=== PATIENT | female | born 1970 | race Caucasian/White ===

== ENCOUNTER 2016-12-29 02:04 | Emergency (ER) | payer OTHER ==
[~2016-12-29] VITALS: Ht 163.8 cm; Wt 99.8 kg
[~2016-12-29 02:04] MED LIST: ACET-704 PO; ALPR0.5T PO; ASPI-482 PO; CARV6.25 PO; CLOP75TA27 PO; CRESTOR40 MG PO; ESTR1TAB17 PO; FURO-69 PO; HYDR-2163 PO; LISI-338 PO; MULT-245 PO; OMEG1CAP43 PO; POTA20TA84 PO; PRAM0.255 PO; PRAM0.5T5 PO; SERT25TA PO; prestiq PO
--- NOTE | 2016-12-29 02:09 | ED.ADGEN ---
Past History Past Medical History: Anxiety, CAD, High Cholesterol, Hypertension, [place], Other Past Surgical History: Hysterectomy, Pacemaker, Other Smoking: Non-smoker Alcohol Use: Occasionally Drug Use: None Adult General Chief Complaint Chief Complaint " I got my flu shot.. but I feel like I got it.... fever, chills, dry cough.. malaise, joint pain.. I can't get the fever to break.. I just feel terrible... 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 Patient does have significant medical history for cardiac disorders and elevated cholesterol. Patient is on multiple cardiac meds. Patient is exposed ill patients in the emergency department. No recent travel or changes in her maintenance meds. No history of immunosuppression. Review of Systems Review of Systems Constitutional: History of fever or chills [] Eyes: Denies change in visual acuity, redness, or eye pain [] HENT: History of congestion and sore throat [] Respiratory: History of cough and some wheezes. Cardiovascular: No additional information not addressed in HPI [] GI: Denies abdominal pain, nausea, vomiting, bloody stools or diarrhea [] : Denies dysuria or hematuria [] Musculoskeletal: Complaints of generalized arthralgia myalgia Integument: Denies rash or skin lesions [] Neurologic: Denies headache, focal weakness or sensory changes [] Endocrine: Denies polyuria or polydipsia [] Family History Family History Non contributory to current presentation Current Medications Current Medications Current Medications Medications (Trade) Dose Ordered Sig/Navin Start Time Stop Time Status Last Admin Dose Admin Albuterol Sulfate (Ventolin Hfa) 2 puff 1X ONCE 12/29/16 04:15 12/29/16 04:21 DC 12/29/16 04:00 2 PUFF Albuterol/ Ipratropium (Duoneb) 3 ml 1X ONCE 12/29/16 03:00 12/29/16 03:01 DC 12/29/16 03:11 3 ML Lactated Ringer's (Iv Lactated Ringers) 1,000 ml @ 1,000 mls/hr Q1H 12/29/16 02:30 12/29/16 04:11 DC 12/29/16 02:58 1,000 MLS/HR Tramadol HCl (Ultram) 100 mg 1X ONCE 12/29/16 03:30 12/29/16 03:31 DC 12/29/16 02:57 100 MG See Nursing for home meds. Allergies Allergies Allergies Coded Allergies Type Severity Reaction Last Updated Verified Sulfa (Sulfonamide Antibiotics) Allergy Intermediate 01/16/14 Yes Physical Exam Physical Exam Constitutional: moderate distress, non-toxic appearance. [] HENT: Normocephalic, atraumatic, bilateral external ears normal, oropharynx moist,post nasal drainage, pharyngeal erythema, no oral exudates, nose rhinorrhea. Eyes: PERRLA, EOMI, conjunctiva normal, no discharge. [] Neck: Normal range of motion, no tenderness, supple, no stridor. [] No adenopathy. Cardiovascular:Heart rate regular rhythm, no murmur [] Lungs & Thorax: Bilateral breath sounds equal with only few scattered wheezes on auscultation []Pacer scar Lt. Abdomen: Bowel sounds normal, soft, no tenderness, no masses, no pulsatile masses. [] -Old surgery scar. Skin: Warm, diaphoretic, no erythema, no rash. [] Tattoo Back: No tenderness, no CVA tenderness. [] Extremities: No tenderness, no cyanosis, no clubbing, ROM intact, no edema. [] Neurologic: Alert and oriented X 3, normal motor function, normal sensory function, no focal deficits noted. [] Psychologic: Affect normal, judgement normal, mood normal. [] Current Patient Data Vital Signs Vital Signs Date Time Temp Pulse Resp B/P Pulse Ox O2 Delivery O2 Flow Rate FiO2 12/29/16 03:45 98.6 78 113/72 93 Nasal Cannula 2 Lab Results Laboratory Tests Test 12/29/16 02:11 12/29/16 02:27 Influenza Type A (Rapid) Negative (NEGATIVE) Influenza Type B (Rapid) Negative (NEGATIVE) Group A Streptococcus Rapid Negative (NEGATIVE) White Blood Count 5.8x10^3/uL (4.0-11.0) Red Blood Count 4.44x10^6/uL (3.50-5.40) Hemoglobin 13.2g/dL (12.0-15.5) Hematocrit 39.2% (36.0-47.0) Mean Corpuscular Volume 88fL (79-100) Mean Corpuscular Hemoglobin 30pg (25-35) Mean Corpuscular Hemoglobin Concent 34g/dL (31-37) Red Cell Distribution Width 14.0% (11.5-14.5) Platelet Count 203x10^3/uL (140-400) Neutrophils (%) (Auto) 70% (31-73) Lymphocytes (%) (Auto) 15% (24-48) L Monocytes (%) (Auto) 13% (0-9) H Eosinophils (%) (Auto) 1% (0-3) Basophils (%) (Auto) 1% (0-3) Neutrophils # (Auto) 4.1x10^3uL (1.8-7.7) Lymphocytes # (Auto) 0.9x10^3/uL (1.0-4.8) L Monocytes # (Auto) 0.8x10^3/uL (0.0-1.1) Eosinophils # (Auto) 0.1x10^3/uL (0.0-0.7) Basophils # (Auto) 0.0x10^3/uL (0.0-0.2) Prothrombin Time 10.2SEC (9.4-11.4) Prothrombin Time INR 1.0 (0.9-1.1) PTT 24SEC (23-33) Sodium Level 142mmol/L (136-145) Potassium Level 4.0mmol/L (3.5-5.1) Chloride Level 105mmol/L (98-107) Carbon Dioxide Level 26mmol/L (21-32) Anion Gap 11 (6-14) Blood Urea Nitrogen 14mg/dL (7-20) Creatinine 1.1mg/dL (0.6-1.0) H Estimated GFR (Cockcroft-Gault) 53.5 Glucose Level 116mg/dL (70-99) H Calcium Level 8.7mg/dL (8.5-10.1) Total Bilirubin 0.3mg/dL (0.2-1.0) Direct Bilirubin 0.1mg/dL (0.0-0.2) Aspartate Amino Transferase (AST) 29U/L (15-37) Alanine Aminotransferase (ALT) 46U/L (14-59) Alkaline Phosphatase 69U/L (46-116) Creatine Kinase 67U/L (26-192) Creatine Kinase MB (Mass) < 0.5ng/mL (0.0-3.6) Creatine Kinase MB Relative Index 0.7% (0-4) Troponin I Quantitative < 0.017ng/mL (0-0.055) IB-Qii-M-Type Natriuretic Peptide 220pg/mL (0-124) H Total Protein 7.4g/dL (6.4-8.2) Albumin 3.8g/dL (3.4-5.0) EKG EKG My interpretation of EKG shows sinus 86, Lt. axis, fascicular block, no findings of acute STEMI with contralateral change.s[] Radiology/Procedures Radiology/Procedures My interpretation, pacer, no acute interval changes. [] Course & Med Decision Making Course & Med Decision Making Pertinent Labs and Imaging studies reviewed. (See chart for details). Keep follow up with primary and cardiology. Review all labs and xrays completed here. Push fruit juices. Bath and show s may help with fevers. Continue the ibuprofen and tylenol. Use MDI two puffs four times a day. Follow up cultures. Tramadol 100 up qid for marked pain and discomfort. Zofran 8 qid for nausea as needed. Return if any concerns. [] Final Impression Final Impression 1. Viral syndrome[] 2. Elevated Creat. 1.1 3. Elevated Monocytes and decreased Lymphocytes Problems: Dragon Disclaimer Dragon Disclaimer This electronic medical record was generated, in whole or in part, using a voice recognition dictation system. AKBAR DUPREE MD Dec 29, 2016 02:09
[2016-12-29] MEDS ORDERED: IV RINGERS SOLUTION,LACTATED 1,000 ML IV SCH (02:30)
--- NOTE | 2016-12-29 02:46 | EKG ---
[address] [address] Test Date: 2016-12-29 Test Time: 02:45:08 Pat Name: AMADO MAYERS Department: Room: Gender: F Technician Assistant: MARISA : 1970 Requested By: AKBAR DUPREE Order Number: [id number] Reading MD: Measurements Intervals [place] Rate: 86 P: 47 [place]: 146 QRS: -30 QRSD: 88 T: 72 QT: 354 QTc: 427 Interpretive Statements SINUS RHYTHM ABNORMAL LEFT AXIS DEVIATION LEFT ANTERIOR FASCICULAR BLOCK QRS(T) CONTOUR ABNORMALITY CONSISTENT WITH ANTEROSEPTAL INFARCT AGE UNDETERMINED T ABNORMALITY IN HIGH LATERAL LEADS ABNORMAL ECG RI6.01 Unconfirmed report Compared to ECG 11/25/2015 15:54:12 Left-axis deviation now present T-wave abnormality now present Myocardial infarct finding still present
[2016-12-29 02:49] LABS: BASO % 1 % (0-3); EOS # 0.1 x10^3/uL (0.0-0.7); EOS % 1 % (0-3); HEMATOCRIT 39.2 % (36.0-47.0); HEMOGLOBIN 13.2 g/dL (12.0-15.5); LYMPH # 0.9 x10^3/uL (1.0-4.8); LYMPH % 15 % (24-48); MEAN CORPUSCULAR HEMOGLOBIN 30 pg (25-35); MEAN CORPUSCULAR HGB CONC 34 g/dL (31-37); MEAN CORPUSCULAR VOLUME 88 fL (79-100); MONO # 0.8 x10^3/uL (0.0-1.1); MONO % 13 % (0-9); NEUT # 4.1 x10^3uL (1.8-7.7); NEUT % 70 % (31-73); PLATELET COUNT 203 x10^3/uL (140-400); RED BLOOD COUNT 4.44 x10^6/uL (3.50-5.40); WHITE BLOOD COUNT 5.8 x10^3/uL (4.0-11.0)
[2016-12-29] MEDS ORDERED: IPRATRPIUM/ALBUTEROL 0.5/2.5MG 3 ML NEBU. NEB ONE (03:00)
[2016-12-29 03:06] LABS: INFLUENZA A PATIENT NEGATIVE (NEGATIVE); INFLUENZA B PATIENT NEGATIVE (NEGATIVE)
[2016-12-29 03:08] LABS: ALBUMIN 3.8 g/dL (3.4-5.0); ALK PHOS 69 U/L (46-116); ALT (SGPT) 46 U/L (14-59); ANION GAP 11 (6-14); AST (SGOT) 29 U/L (15-37); BLOOD UREA NITROGEN 14 mg/dL (7-20); CALCIUM 8.7 mg/dL (8.5-10.1); CARBON DIOXIDE 26 mmol/L (21-32); CHLORIDE 105 mmol/L (98-107); CREATINE KINASE 67 U/L (26-192); CREATININE 1.1 mg/dL (0.6-1.0); DIRECT BILIRUBIN 0.1 mg/dL (0.0-0.2); GFR 53.5; GLUCOSE 116 mg/dL (70-99); SODIUM 142 mmol/L (136-145); TOTAL BILIRUBIN 0.3 mg/dL (0.2-1.0); TOTAL PROTEIN 7.4 g/dL (6.4-8.2)
[2016-12-29] MEDS ORDERED: TRAMADOL 50 MG TABLET. PO ONE (03:30)
[2016-12-29] MEDS ORDERED: TRAM50TA PO (03:32)
[2016-12-29] MEDS ORDERED: ONDA8TAB12 PO (03:32)
[2016-12-29 03:45] VITALS: BP 113/72
[2016-12-29] MEDS ORDERED: ALBUTEROL SULFATE 8GM INHALER. ONE (03:52)
[2016-12-29] MEDS ORDERED: ALBUTEROL SULFATE 8GM INHALER. INH ONE (04:15)
--- NOTE | 2016-12-29 07:10 | RAD ---
Chest, 2 views, 12/29/2016: History: Cough and fever Comparison is made to a study from 11/25/2015. A left-sided transvenous pacemaker remains in place with 2 leads extending into the right heart. The heart size and pulmonary vascularity are normal. No pulmonary infiltrate is seen. There is no evidence of pleural fluid. IMPRESSION: No acute cardiopulmonary abnormality is detected.
== END 2016-12-29 04:00 | disposition home or self-care (01) ==
LOC: ER 02:09
DX: B34.9 Viral infection, unspecified (principal); D72.810 Lymphocytopenia; D72.821 Monocytosis (symptomatic); E78.00 Pure hypercholesterolemia, unspecified; I10 Essential (primary) hypertension; I25.10 Atherosclerotic heart disease of native coronary artery without angina pectoris; I25.2 Old myocardial infarction; R79.89 Other specified abnormal findings of blood chemistry; Z95.0 Presence of cardiac pacemaker; Z88.2 Allergy status to sulfonamides
CPT/HCPCS: 36415; 71020; 80048; 80061; 80076; 82553; 83880; 84484; 85027; 85610; 85730; 87040; 87070; 87804; 87880; 93005; 94640; 96360; 99285; J7120; J7620

== ENCOUNTER → 2017-01-12 | Outpatient (CLI) | payer BC, OTHER ==
[2016-12-29 03:45] VITALS: BP 113/72
[~2017-01-12] MED LIST changes: +ONDA8TAB12 PO; +TRAM50TA PO
--- NOTE | 2017-01-12 10:18 | CARD ---
APPROVED REPORT EXAM: Two-dimensional and M-mode echocardiogram with Doppler and color Doppler. Other Information Quality : Good INDICATION Ischemic Cardiomyopathy 2D DIMENSIONS RVDd2.3 (2.9-3.5cm)Left Atrium(2D)4.4 (1.6-4.0cm) IVSd0.8 (0.7-1.1cm)Aortic Root(2D)2.9 (2.0-3.7cm) LVDd5.8 (3.9-5.9cm)PWd1.3 (0.7-1.1cm) LVDs4.0 (2.5-4.0cm)FS (%) 20.0 % SV95.8 mlLVEF(%)40.0 (>50%) Aortic Valve AoV Peak Blas.115.8cm/sAoV VTI18.4cm AO Peak GR.5.4mmHgAO Mean GR.3mmHg YVES (VTI)3.37cm2 Mitral Valve MV E Fnbmrift92.9cm/sMV DECEL OFYQ021oq MV A Xvmlzlgo02.9cm/sE/A Ratio0.8 Tricuspid Valve TR P. [id number]/sRAP [id number] TR Peak Gr.12erEyJWRS51utEp LEFT VENTRICLE The left ventricle is normal size. There is normal left ventricular wall thickness. Left ventricle sy stolic function is moderately impaired. The Ejection Fraction is 30%. There is severe hypokinesis to akinesis of the mid to distal septum, apex and anterior wall consistent with prior LAD territory infa rct. Transmitral Doppler flow pattern is Grade I-abnormal relaxation pattern. RIGHT VENTRICLE The right ventricle is normal size. The right ventricular systolic function is normal. There is a pac emaker lead in the right ventricle. ATRIA The left atrium is mildly dilated. The right atrium size is normal. A pacemaker/ICD is seen in the [facility] atrium consistent with history. The interatrial septum is intact with no evidence for an atrial s eptal defect or patent foramen ovale as noted on 2-D or Doppler imaging. AORTIC VALVE The aortic valve is normal in structure and function. Doppler and Color Flow revealed no significant aortic regurgitation. There is no significant aortic valvular stenosis. MITRAL VALVE The mitral valve is normal in structure and function. There is no evidence of mitral valve prolapse. There is no mitral valve stenosis. Doppler and Color-flow revealed trace mitral regurgitation. TRICUSPID VALVE The tricuspid valve is normal in structure and function. Doppler and Color Flow revealed trace tricus pid regurgitation. The PA pressure was estimated at 35 mmHg. There is no tricuspid valve stenosis. PULMONIC VALVE Doppler and Color Flow revealed no pulmonic valvular regurgitation. There is no pulmonic valvular mahin nosis. GREAT VESSELS The aortic root is normal in size. The ascending aorta is normal in size. The IVC is normal in size a nd collapses >50% with inspiration. PERICARDIAL EFFUSION There is no evidence of significant pericardial effusion. Critical Notification Critical Value: No <Conclusion> There is severe hypokinesis to akinesis of the mid to distal septum, apex and anterior wall consisten t with prior LAD territory infarct. Left ventricle systolic function is moderately impaired. The Ejection Fraction is 30%. There is a pacemaker lead in the right ventricle. The right atrium size is normal. A pacemaker/ICD is seen in the right atrium consistent with history. Doppler and Color Flow revealed trace tricuspid regurgitation. The PA pressure was estimated at 35 mm Hg.
== END | disposition home or self-care (01) ==
LOC: ECHO 07:56
PROVIDERS: ATTEND Internal Medicine Cardiovascular Disease
DX: I25.5 Ischemic cardiomyopathy (principal); I25.2 Old myocardial infarction; I31.3 Pericardial effusion (noninflammatory); Z95.0 Presence of cardiac pacemaker
CPT/HCPCS: 93306

== ENCOUNTER → 2017-07-02 | Outpatient (CLI) | payer OTHER ==
[~2017-07-02] MED LIST changes: -CLOP75TA27 PO; +CLOP75TA57 PO
[2017-07-02 10:32] LABS: BASO % 1 % (0-3); EOS # 0.3 x10^3/uL (0.0-0.7); EOS % 4 % (0-3); HEMATOCRIT 38.7 % (36.0-47.0); HEMOGLOBIN 13.3 g/dL (12.0-15.5); LYMPH # 1.8 x10^3/uL (1.0-4.8); LYMPH % 24 % (24-48); MEAN CORPUSCULAR HEMOGLOBIN 31 pg (25-35); MEAN CORPUSCULAR HGB CONC 34 g/dL (31-37); MEAN CORPUSCULAR VOLUME 90 fL (79-100); MONO # 0.6 x10^3/uL (0.0-1.1); MONO % 8 % (0-9); NEUT # 4.8 x10^3uL (1.8-7.7); NEUT % 64 % (31-73); PLATELET COUNT 223 x10^3/uL (140-400); RED CELL DISTRIBUTION WIDTH 13.6 % (11.5-14.5); WHITE BLOOD COUNT 7.6 x10^3/uL (4.0-11.0)
[2017-07-02 10:51] LABS: ALBUMIN 3.9 g/dL (3.4-5.0); ALBUMIN/GLOBULIN RATIO 1.1 (1.0-1.7); CREATININE 0.9 mg/dL (0.6-1.0); GFR 67.1; POTASSIUM 4.5 mmol/L (3.5-5.1); TOTAL BILIRUBIN 0.3 mg/dL (0.2-1.0); TOTAL PROTEIN 7.4 g/dL (6.4-8.2)
== END | disposition home or self-care (01) ==
LOC: LAB 09:44
PROVIDERS: ATTEND Internal Medicine Cardiovascular Disease
DX: I25.5 Ischemic cardiomyopathy (principal)
CPT/HCPCS: 36415; 80053; 83880; 85025

== ENCOUNTER 2017-09-08 23:08 | Emergency (ER) | payer OTHER ==
[2017-09-08] MEDS ORDERED: hydrOXYzine HCL 25 MG TABLET PO PRN (23:15)
[2017-09-08] MEDS ORDERED: methylPREDNISolone SOD SUCC PF 125 MG/2 ML VIAL. IV ONE (23:15)
[2017-09-08] MEDS ORDERED: FAMOTIDINE 20 MG/2 ML VIAL IVP ONE (23:15)
--- NOTE | 2017-09-08 23:33 | PHYS DOC ---
Past History Past Medical History: Anxiety, CAD, High Cholesterol, Hypertension, [place], Other Past Surgical History: Hysterectomy, Pacemaker, Other Smoking: Non-smoker Alcohol Use: Occasionally Drug Use: None Adult General Chief Complaint Chief Complaint: SKIN PROBLEM HPI HPI She is a pleasant 47-year-old female who presents with a rash that has been noted on her chest wall for the last 2 months. She recently developed this rash which was described as a "" contact dermatitis by her primary care physician after she had a AICD placed in her left chest wall. She comes in tonight because she had an increasing area of irritation and itching and urticarial and development on her neck lateral face on the left. She denies any fevers, chills , neck pain, joint pain, myalgias. She further denies any insect bites or change in medications. She says that the intense itching has gotten progressively worse. There is a burning sensation over her chest wall she has scratched her rash. Review of Systems Review of Systems Constitutional: Denies fever or chills [] Eyes: Denies redness, or eye pain [] HENT: Denies nasal congestion or sore throat [] Respiratory: Denies cough or shortness of breath [] Cardiovascular: No additional information not addressed in HPI [] GI: Denies abdominal pain : Denies hematuria [] Musculoskeletal: Denies back pain or joint pain [] Integument: complaint is a skin rash on her chest wall Neurologic: Denies headache, All other systems were reviewed and found to be within normal limits, except as documented in this note. Allergies Allergies Allergies Coded Allergies Type Severity Reaction Last Updated Verified Sulfa (Sulfonamide Antibiotics) Allergy Intermediate 01/16/14 Yes Physical Exam Physical Exam Vital signs recorded on the chart patient noted to be borderline hypertensive. Constitutional: Well developed, well nourished, no acute distress, non-toxic appearance. [] HENT: oropharynx moist, no oral exudates or oral lesions, nose normal. [] Eyes: PERRLA, conjunctiva normal, no discharge. [] Neck: Normal range of motion, no tenderness, supple, Cardiovascular:Heart rate regular rhythm, no murmur [] Lungs & Thorax: Bilateral breath sounds clear to auscultation [] Skin: Warm, dry, she has a rash in her chest wall that I would describe as contact dermatitis in nature with some excoriations and broken skin on the surface. There are no vesicles. Petechiae, no purpura. This looks like him urticarial-like rash spreading on the outside of her left cheek left side of her neck. Does not look cellulitic in nature it is not warm to touch. EKG EKG [] Radiology/Procedures Radiology/Procedures [] Course & Med Decision Making Course & Med Decision Making Pertinent Labs and Imaging studies reviewed. (See chart for details) ration given 2 doses of Atarax, IM epinephrine, IV Solu-Medrol, and Pepcid with marked improvement in the redness of the skin having significant itching although the induration and the swelling has reduced significantly. I'm concerned that the patient is a delayed reaction to the medical in her chest wall from the AICD placement 2 months ago. Patient will be provided is still here to help with itching placed on a topical steroid, oral steroid and appropriate supportive a H1 and H2 blockers as well as referral to a multi craft maintenance technician. [] Dragon Disclaimer Dragon Disclaimer This electronic medical record was generated, in whole or in part, using a voice recognition dictation system. Departure Departure: Impression: Primary Impression: Pruritus Disposition: HOME, SELF-CARE Condition: STABLE Referrals: JEWELS ORTEGA MD (PCP) Patient Instructions: Pruritus Additional Instructions: discharge: I've spoken with the patient and/or caregivers. I've explained the patient's condition, diagnosis and treatment plan based on information available to me at this time. I've answered the patient's and/or caregivers questions and addressed any concerns. The patient and/or caregivers have a good understanding the patient's diagnosis, condition and treatment plan as can be expected at this point. Vital signs have been stabilized. The patient's condition is stable for discharge from the emergency department. The patient will pursue further outpatient evaluation with her primary care provider or other designated consulting physician as outlined in the discharge instructions. Patient and/or caregivers are agreeable to this plan of care and follow-up instructions have been explained in detail. The patient and/or caregivers have received these instructions in written format and expressed understanding of these discharge instructions. The patient and her caregivers are aware that if any significant change in condition or worsening of symptoms should prompt him to immediately return to this of the closest emergency department. If an emergent department is not readily available I would encourage him to call 911. Scripts Prednisone (PREDNISONE) 20 Mg Tablet 3 TAB PO DAILY for 5 Days, #15 TAB Prov: BROOKLYNN REGALADO MD 09/09/17 Famotidine (PEPCID) 20 Mg Tablet 1 TAB PO BID, #20 TAB 3 Refills Prov: BROOKLYNN REGALADO MD 09/09/17 Fluticasone Propionate (CUTIVATE) 30 Gm Cream..g. 1 KRISHAN TP BID, #60 GM 1 Refill Prov: BROOKLYNN REGALADO MD 09/09/17 Hydroxyzine Pamoate (VISTARIL) 50 Mg Capsule 1 CAP PO TID, #30 CAP 0 Refills Prov: BROOKLYNN REGALADO MD 09/09/17 BROOKLYNN REGALADO MD Sep 08, 2017 23:33
[2017-09-09] MEDS ORDERED: hydrOXYzine HCL 25 MG TABLET PO PRN
[2017-09-09] MEDS ORDERED: EPINEPHrine 1 MG/ML AMPUL ONE (00:02)
[2017-09-09] MEDS ORDERED: EPINEPHrine SYRINGE 1 MG/10 ML SYRINGE ONE ×2 (00:04→00:06)
[2017-09-09] MEDS ORDERED: EPINEPHrine 1 MG/ML AMPUL IM ONE (00:15)
[2017-09-09] MEDS ORDERED: BUTORPHANOL 2 MG VIAL. IV ONE (00:45)
[2017-09-09] MEDS ORDERED: HYDR50CA PO (00:54)
[2017-09-09] MEDS ORDERED: FLUT30CR5 TP (00:54)
[2017-09-09] MEDS ORDERED: PRED20TA PO (00:54)
[2017-09-09] MEDS ORDERED: FAMO-63 PO (00:54)
[2017-09-09] MEDS ORDERED: FLUOCINONIDE/EMOLLIENT 0.05% TOPICAL CREAM 15GM TUBE TP ONE (01:00)
[2017-09-09 01:05] VITALS: BP 110/74
== END 2017-09-09 01:31 | disposition home or self-care (01) ==
LOC: ER 23:08
DX: L29.9 Pruritus, unspecified (principal); R21 Rash and other nonspecific skin eruption; E78.00 Pure hypercholesterolemia, unspecified; F41.9 Anxiety disorder, unspecified; I25.10 Atherosclerotic heart disease of native coronary artery without angina pectoris; I10 Essential (primary) hypertension; I25.2 Old myocardial infarction; Z95.0 Presence of cardiac pacemaker; Z88.2 Allergy status to sulfonamides
CPT/HCPCS: 96372; 96374; 96375; 99284; J0171; J0595; J2930; S0028

== ENCOUNTER → 2017-10-06 | Outpatient (CLI) | payer OTHER ==
[2017-09-09 01:05] VITALS: BP 110/74
[~2017-10-06] MED LIST changes: +FAMO-63 PO; +FLUT30CR5 TP; +HYDR50CA PO; +PRED20TA PO
--- NOTE | 2017-10-07 09:22 | RAD ---
DATE: 10/06/2017 EXAM: MAMMO YARI SCREENING BILATERAL HISTORY: Routine screening COMPARISON: 02/25/2016, 10/09/2016 This study was interpreted with the benefit of Computerized Aided Detection (CAD). The breast parenchyma is heterogeneously dense, which could reduce sensitivity of mammography. Breast parenchyma level C. FINDINGS: 2-D and 3-D tomosynthesis imaging was performed in CC and MLO projections. There is a cluster of smooth nodules in the inferomedial aspect of the left breast, best seen on the tomographic images. These are unchanged suggesting a benign etiology. There is a smooth oval-shaped nodule in the posterolateral aspect of the left breast which is stable when compared to previous exams dating back to 2010. No new or enlarging breast densities are seen. Minimal benign type calcification is present. No suspicious microcalcifications have developed. IMPRESSION: Stable mammograms without evidence of malignancy. BI-RADS CATEGORY: 2 BENIGN FINDING(S) RECOMMENDED FOLLOW-UP: 12M 12 MONTH FOLLOW-UP PQRS compliance statement: Patient information was entered into a reminder system with a target due date for the next mammogram. Mammography is a sensitive method for finding small breast cancers, but it does not detect them all and is not a substitute for careful clinical examination. A negative mammogram does not negate a clinically suspicious finding and should not result in delay in biopsying a clinically suspicious abnormality. "Our facility is accredited by the [employer] Mammography Program."
== END | disposition home or self-care (01) ==
LOC: MAMMO 12:25
PROVIDERS: ATTEND Family Medicine
DX: Z12.31 Encounter for screening mammogram for malignant neoplasm of breast (principal)
CPT/HCPCS: 77063; G0202; 77067

== ENCOUNTER → 2017-11-18 | Outpatient (CLI) | payer OTHER ==
[2017-11-18 08:47] LABS: ALBUMIN 3.7 g/dL (3.4-5.0); ALBUMIN/GLOBULIN RATIO 1.1 (1.0-1.7); CALCIUM 9.1 mg/dL (8.5-10.1); GFR 59.4; POTASSIUM 4.2 mmol/L (3.5-5.1); TOTAL BILIRUBIN 0.2 mg/dL (0.2-1.0); TOTAL PROTEIN 7.1 g/dL (6.4-8.2)
== END | disposition home or self-care (01) ==
LOC: LAB 07:49
PROVIDERS: ATTEND Physician Assistant
DX: E78.2 Mixed hyperlipidemia (principal)
CPT/HCPCS: 36415; 80053; 80061

== ENCOUNTER 2018-02-09 12:08 | Emergency (ER) | payer OTHER ==
[~2018-02-09] VITALS: Ht 162.6 cm; Wt 90.7 kg
--- NOTE | 2018-02-09 12:35 | EKG ---
[address] [address] Test Date: 2018-02-09 Test Time: 12:12:16 Pat Name: AMADO MAYERS Department: Room: Gender: F Lapidarist: : 1970 Requested By: MANN MAHONEY Order Number: [id number] Reading MD: Measurements Intervals [place] Rate: 77 P: 0 [place]: 222 QRS: -25 QRSD: 92 T: 77 QT: 412 QTc: 468 Interpretive Statements SINUS RHYTHM PROLONGED [place] INTERVAL LEFTWARD AXIS QRS(T) CONTOUR ABNORMALITY CONSISTENT WITH ANTEROSEPTAL INFARCT AGE UNDETERMINED T ABNORMALITY IN HIGH LATERAL LEADS ABNORMAL ECG RI6.01 No previous ECG available for comparison
[2018-02-09 12:40] LABS: BASO # 0.1 x10^3/uL (0.0-0.2); BASO % 1 % (0-3); EOS # 0.1 x10^3/uL (0.0-0.7); EOS % 2 % (0-3); HEMATOCRIT 36.8 % (36.0-47.0); HEMOGLOBIN 12.4 g/dL (12.0-15.5); LYMPH # 2.7 x10^3/uL (1.0-4.8); LYMPH % 33 % (24-48); MEAN CORPUSCULAR HEMOGLOBIN 30 pg (25-35); MEAN CORPUSCULAR HGB CONC 34 g/dL (31-37); MEAN CORPUSCULAR VOLUME 89 fL (79-100); MONO # 0.7 x10^3/uL (0.0-1.1); MONO % 8 % (0-9); NEUT # 4.7 x10^3uL (1.8-7.7); NEUT % 57 % (31-73); PLATELET COUNT 207 x10^3/uL (140-400); RED BLOOD COUNT 4.12 x10^6/uL (3.50-5.40); RED CELL DISTRIBUTION WIDTH 13.7 % (11.5-14.5); WHITE BLOOD COUNT 8.2 x10^3/uL (4.0-11.0)
--- NOTE | 2018-02-09 12:50 | RAD ---
Exam: AP portable chest History: Dizziness, hypotensive. Comparison: December 29, 2016. Findings: The heart and mediastinal structures are within normal limits for size. Lungs are without infiltrate. No pleural effusion or pneumothorax is identified. Dual-lead pacemaker by left subclavian approach is seen. No failure is evident. Impression: 1. No acute cardiopulmonary process. Electronically signed by: Eliazar Betancourt MD (02/09/2018 12:46 PM) [facility]
[2018-02-09 12:57] LABS: ALBUMIN 3.8 g/dL (3.4-5.0); ALBUMIN/GLOBULIN RATIO 1.2 (1.0-1.7); CALCIUM 8.5 mg/dL (8.5-10.1); CREATININE 0.8 mg/dL (0.6-1.0); GFR 76.9; MAGNESIUM 1.8 mg/dL (1.8-2.4); POTASSIUM 3.9 mmol/L (3.5-5.1); TOTAL BILIRUBIN 0.4 mg/dL (0.2-1.0)
--- NOTE | 2018-02-09 13:08 | PHYS DOC ---
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 Patient complaining of feeling of near-syncope without chest pain, palpitation, shortness of breath, focal neuro deficit, nausea and vomiting. Patient had blood pressure of 88/51 and states her dizziness is getting better but still she feeling lightheadedness. Patient denies history of the same upper respiratory infection or head injury and the same problem previously Review of Systems Review of Systems Constitutional: Denies fever or chills [] Eyes: Denies change in visual acuity, redness, or eye pain [] HENT: Denies nasal congestion or sore throat [] Respiratory: Denies cough or shortness of breath [] Cardiovascular: No additional information not addressed in HPI [] GI: Denies abdominal pain, nausea, vomiting, bloody stools or diarrhea [] : Denies dysuria or hematuria [] Musculoskeletal: Denies back pain or joint pain [] Integument: Denies rash or skin lesions [] Neurologic: Denies headache, focal weakness or sensory changes, reports dizziness [] Endocrine: Denies polyuria or polydipsia [] All other systems were reviewed and found to be within normal limits, except as documented in this note. Allergies Allergies Allergies Coded Allergies Type Severity Reaction Last Updated Verified Sulfa (Sulfonamide Antibiotics) Allergy Intermediate 02/09/18 Yes Physical Exam Physical Exam Constitutional: Well developed, well nourished, mild distress, non-toxic appearance. [] HENT: Normocephalic, atraumatic, bilateral external ears normal, oropharynx moist, no oral exudates, nose normal. [] Eyes: PERRLA, EOMI, conjunctiva normal, no discharge. [] Neck: Normal range of motion, no tenderness, supple, no stridor. [] Cardiovascular:Heart rate regular rhythm, no murmur [] Lungs & Thorax: Bilateral breath sounds clear to auscultation [] Abdomen: Bowel sounds normal, soft, no tenderness, no masses, no pulsatile masses. [] Skin: Warm, dry, no erythema, no rash. [] Back: No tenderness, no CVA tenderness. [] Extremities: No tenderness, no cyanosis, no clubbing, ROM intact, no edema. [] Neurologic: Alert and oriented X 3, normal motor function, normal sensory function, no focal deficits noted. [] Psychologic: Affect normal, judgement normal, mood normal. [] Current Patient Data Vital Signs Vital Signs Date Time Temp Pulse Resp B/P (MAP) Pulse Ox O2 Delivery O2 Flow Rate FiO2 02/09/18 12:08 98.1 72 20 100 Room Air Lab Results Laboratory Tests Test 02/09/18 12:16 White Blood Count 8.2 x10^3/uL (4.0-11.0) Red Blood Count 4.12 x10^6/uL (3.50-5.40) Hemoglobin 12.4 g/dL (12.0-15.5) Hematocrit 36.8 % (36.0-47.0) Mean Corpuscular Volume 89 fL (79-100) Mean Corpuscular Hemoglobin 30 pg (25-35) Mean Corpuscular Hemoglobin Concent 34 g/dL (31-37) Red Cell Distribution Width 13.7 % (11.5-14.5) Platelet Count 207 x10^3/uL (140-400) Neutrophils (%) (Auto) 57 % (31-73) Lymphocytes (%) (Auto) 33 % (24-48) Monocytes (%) (Auto) 8 % (0-9) Eosinophils (%) (Auto) 2 % (0-3) Basophils (%) (Auto) 1 % (0-3) Neutrophils # (Auto) 4.7 x10^3uL (1.8-7.7) Lymphocytes # (Auto) 2.7 x10^3/uL (1.0-4.8) Monocytes # (Auto) 0.7 x10^3/uL (0.0-1.1) Eosinophils # (Auto) 0.1 x10^3/uL (0.0-0.7) Basophils # (Auto) 0.1 x10^3/uL (0.0-0.2) Sodium Level 139 mmol/L (136-145) Potassium Level 3.9 mmol/L (3.5-5.1) Chloride Level 103 mmol/L (98-107) Carbon Dioxide Level 28 mmol/L (21-32) Anion Gap 8 (6-14) Blood Urea Nitrogen 12 mg/dL (7-20) Creatinine 0.8 mg/dL (0.6-1.0) Estimated GFR (Cockcroft-Gault) 76.9 BUN/Creatinine Ratio 15 (6-20) Glucose Level 115 mg/dL (70-99) H Calcium Level 8.5 mg/dL (8.5-10.1) Magnesium Level 1.8 mg/dL (1.8-2.4) Total Bilirubin 0.4 mg/dL (0.2-1.0) Aspartate Amino Transferase (AST) 15 U/L (15-37) Alanine Aminotransferase (ALT) 40 U/L (14-59) Alkaline Phosphatase 42 U/L (46-116) L Creatine Kinase 84 U/L (26-192) Creatine Kinase MB (Mass) 1.0 ng/mL (0.0-3.6) Creatine Kinase MB Relative Index 1.2 % (0-4) Troponin I Quantitative < 0.017 ng/mL (0-0.055) MW-Atf-H-Type Natriuretic Peptide 189 pg/mL (0-124) H Total Protein 7.0 g/dL (6.4-8.2) Albumin 3.8 g/dL (3.4-5.0) Albumin/Globulin Ratio 1.2 (1.0-1.7) EKG EKG EKG interpreted by me. EKG at 1212 showed sinus rhythm at rate of 77, prolonged MD interval, left hinds axis deviation, Q waves in anterior leads, T-wave abnormality in lateral leads,[ no acute ST and T-wave abnormalities Radiology/Procedures Radiology/Procedures [address] [address] IMAGING REPORT Signed PATIENT: AMADO MAYERS ACCOUNT: [id number] : 1970 LOCATION: ER AGE: 47 SEX: F EXAM STATUS: REG ER ORD. PHYSICIAN: MANN MAHONEY MD REASON: dizziness PROCEDURE: PORTABLE CHEST 1V Exam: AP portable chest History: Dizziness, hypotensive. Comparison: December 29, 2016. Findings: The heart and mediastinal structures are within normal limits for size. Lungs are without infiltrate. No pleural effusion or pneumothorax is identified. Dual-lead pacemaker by left subclavian approach is seen. No failure is evident. Impression: 1. No acute cardiopulmonary process. Electronically signed by: Eliazar Hidalgo MD (02/09/2018 12:46 PM) [facility] DICTATED AND SIGNED BY: ELIAZAR HIDALGO MD DATE: 02/09/18 9136 CC: JEWELS ORTEGA MD; MANN MAHONEY MD ~ [] Course & Med Decision Making Course & Med Decision Making Pertinent Labs and Imaging studies reviewed. (See chart for details) Evaluation of patient in ER showed 47-year-old female patient with complaining of lightheadedness and dizziness with blood pressure of 88 at arrival to ER that gradually improved to 97. Patient had increase of blood pressure at [address] demarco informed at 12:15 and agreed with plan of care. Patient had pacemaker defibrillator integration that reported normal rhythm without any arrhythmia. 2 sets of cardiac enzymes was unremarkable. Patient tolerated oral intake and had 500 mL normal saline IV with improvement of her dizziness. Patient ambulated without problem and felt comfortable to go home.Dr demarco informed again at 1514 and was concerned that patient problem is most likely related to recent increasing dose of Entresto and suggested to decrease to 1 pill twice a day instead of 2 pills in the morning and 1 in evening. 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 Dragon Disclaimer Dragon Disclaimer This electronic medical record was generated, in whole or in part, using a voice recognition dictation system. Departure Departure: Impression: Primary Impression: Near syncope Disposition: HOME, SELF-CARE (At 1519) Condition: IMPROVED Referrals: JEWELS ORTEGA MD (PCP) Patient Instructions: Dizziness Additional Instructions: Follow-up feet Dr. Demarco as instructed Follow-up with your primary care physician in 3-5 days Return to ER if not getting better MANN MAHONEY MD February 09, 2018 13:08
[2018-02-09] MEDS ORDERED: IV NORMAL SALINE 500ML 500 ML IV ONE (14:45)
[2018-02-09 16:05] VITALS: BP 110/68
== END 2018-02-09 16:10 | disposition home or self-care (01) ==
LOC: ER 12:08
DX: R55 Syncope and collapse (principal); E78.00 Pure hypercholesterolemia, unspecified; I25.10 Atherosclerotic heart disease of native coronary artery without angina pectoris; I10 Essential (primary) hypertension; I25.2 Old myocardial infarction; F41.9 Anxiety disorder, unspecified; Z95.0 Presence of cardiac pacemaker; Z88.2 Allergy status to sulfonamides
CPT/HCPCS: 36415; 71045; 80053; 82553; 83735; 83880; 84484; 85025; 93005; 96360; 99285; J7040

== ENCOUNTER → 2018-03-15 | Outpatient (CLI) | payer OTHER ==
--- NOTE | 2018-03-15 14:11 | CARD ---
MR#: [id number] Date of Study: 03/15/2018 Ordering Physician: TJ FISCHER, Referring Physician: TJ FISCHER, Tech: JOSEPH Dennison APPROVED REPORT EXAM: Two-dimensional and M-mode echocardiogram with Doppler and color Doppler. Other Information Quality : AverageHR: 71bpm Technically limited study due to INDICATION Ischemic Cardiomyopathy 2D DIMENSIONS RVDd3.1 (2.9-3.5cm)Left Atrium(2D)4.0 (1.6-4.0cm) IVSd1.3 (0.7-1.1cm)Aortic Root(2D)2.8 (2.0-3.7cm) LVDd5.0 (3.9-5.9cm)LVOT Diameter2.2 (1.8-2.4cm) PWd1.2 (0.7-1.1cm)LVDs3.3 (2.5-4.0cm) FS (%) 33.7 %SV72.1 ml LVEF(%)62.2 (>50%) Aortic Valve AoV Peak Blas.137.1cm/sAoV VTI30.2cm AO Peak GR.7.5mmHgLVOT Peak Blas.87.0cm/s LVOT VTI 20.52cmAO Mean GR.5mmHg YVES (VMAX)2.56gd5RGI (VTI)2.70cm2 Mitral Valve MV E Vtcpajkp31.9cm/sMV DECEL [id number] MV A Pdtheixz25.4cm/sE/A Ratio1.1 Pulmonary Valve PV Peak Fmsekwea161.4cm/sPV Peak Grad.5mmHg Tricuspid Valve TR P. Gioacnwn282ox/sTR Peak Gr.21mmHg Pulmonary Vein S1 Tmbscxkz51.2cm/sD2 Tlehoxjj44.4cm/s LEFT VENTRICLE The left ventricle is normal size. There is mild concentric left ventricular hypertrophy. The systoli c function is moderately impaired. The Ejection Fraction is 35-40%. Significant regional wall motion abnormalities noted. The septum, distal anterior wall and apex are akinetic. Tissue Doppler imaging r eveals mild left ventricular diastolic dysfunction. RIGHT VENTRICLE The right ventricle is normal size. The right ventricle is mildly hypertrophied. The right ventricula r systolic function is normal. There is a pacemaker lead in the right ventricle. ATRIA The left atrium size is normal. The right atrium size is normal. A pacemaker is seen in the right atr ium consistent with history. The interatrial septum is intact with no evidence for an atrial septal d efect or patent foramen ovale as noted on 2-D or Doppler imaging. AORTIC VALVE The aortic valve is thickened and not well visualized. Doppler and Color Flow revealed no significant aortic regurgitation. There is no significant aortic valvular stenosis. There is no aortic valvular vegetation. MITRAL VALVE The mitral valve is thickened but opens well. There is no evidence of mitral valve prolapse. There is no mitral valve stenosis. Doppler and Color Flow revealed no mitral valve regurgitation noted. TRICUSPID VALVE The tricuspid valve is normal in structure. Doppler and Color Flow revealed trace to mild tricuspid r egurgitation. There is no tricuspid valve prolapse or vegetation. There is no tricuspid valve stenosi s. PULMONIC VALVE The pulmonic valve is not well visualized. Doppler and Color Flow revealed no pulmonic valvular regur gitation. There is no pulmonic valvular stenosis. GREAT VESSELS The aortic root is normal in size. The IVC is normal in size and collapses >50% with inspiration. PERICARDIAL EFFUSION There is no pleural effusion. There is no evidence of significant pericardial effusion. Critical Notification Critical Value: No <Conclusion> The systolic function is moderately impaired. The Ejection Fraction is 35-40%. Significant regional wall motion abnormalities noted. The septum, distal anterior wall and apex are a kinetic. There is a pacemaker lead in the right ventricle. Signed by : Tj Fischer, Electronically Approved : 03/15/2018 14:10:05
== END | disposition home or self-care (01) ==
LOC: ECHO 12:33
PROVIDERS: ATTEND Internal Medicine Cardiovascular Disease
DX: I25.5 Ischemic cardiomyopathy (principal); Z95.0 Presence of cardiac pacemaker
CPT/HCPCS: 93306

== ENCOUNTER 2018-08-22 01:38 | Inpatient (IN) | payer OTHER ==
[~2018-08-22] VITALS: Ht 162.6 cm; Wt 97.1 kg
[2018-08-22] MEDS ORDERED: ASPIRIN 81 MG TAB.CHEW ONE (02:01)
--- NOTE | 2018-08-22 02:08 | PHYS DOC ---
Past History Past Medical History: Angina, High Cholesterol, Heart Disease Past Surgical History: Hysterectomy, Other Smoking: Non-smoker Alcohol Use: None Drug Use: None Adult General Chief Complaint Chief Complaint: CHEST PAIN HPI HPI Patient is a 48-year-old female who presents with complaint of chest pain that started at about 12:15 this morning. Patient states that pain woke her from sleep. She states the pain is quite atypical for her typical chest pains. She states the pain as partially dull and at times sharp. She states that the pain is about a 5 out of 10. She indicates that nothing seems to worsen or improve the pain. Patient does have a strong cardiac history and also has a familial type of hypercholesterolemia. She denies any nausea, vomiting or diaphoresis. Pain is located to the left side of the chest and is nonradiating. Pain has been constant since onset but she states that at times pain worsens. Review of Systems Review of Systems Constitutional: Denies fever or chills [] Respiratory: Denies cough or shortness of breath [] Cardiovascular: Complains of left-sided chest pain [] GI: Denies abdominal pain, nausea, vomiting [] Musculoskeletal: Denies back pain or joint pain [] All other systems were reviewed and found to be within normal limits, except as documented in this note. Current Medications Current Medications Current Medications Medications (Trade) Dose Ordered Sig/Navin Start Time Stop Time Status Last Admin Dose Admin Aspirin (Children'S Aspirin) 81 mg STK-MED ONCE 08/22/18 02:01 08/22/18 02:02 DC Allergies Allergies Allergies Coded Allergies Type Severity Reaction Last Updated Verified Sulfa (Sulfonamide Antibiotics) Allergy Intermediate 02/09/18 Yes Physical Exam Physical Exam Constitutional: Well developed, well nourished, no acute distress, non-toxic appearance. [] HENT: Normocephalic, atraumatic, bilateral external ears normal, oropharynx moist, no oral exudates, nose normal. [] Eyes: PERRLA, EOMI, conjunctiva normal, no discharge. [] Neck: Normal range of motion, no tenderness, supple, no stridor. [] Cardiovascular:Heart rate regular rhythm [] Lungs & Thorax: Bilateral breath sounds clear to auscultation [] Abdomen: Bowel sounds normal, soft. [] Skin: Warm, dry, no erythema, no rash. [] Extremities: No tenderness, no cyanosis, no clubbing, ROM intact, no edema. [] Neurologic: Alert and oriented X 3, normal motor function, normal sensory function, no focal deficits noted. [] Current Patient Data Vital Signs Vital Signs Date Time Temp Pulse Resp B/P (MAP) Pulse Ox O2 Delivery O2 Flow Rate FiO2 08/22/18 01:51 77 20 99 Room Air EKG EKG EKG demonstrates an atrial paced rhythm with rate of 76.[] Radiology/Procedures Radiology/Procedures [] Impressions: Chest x-ray demonstrates no acute process. Course & Med Decision Making Course & Med Decision Making Pertinent Labs and Imaging studies reviewed. (See chart for details) [] Dragon Disclaimer Dragon Disclaimer This electronic medical record was generated, in whole or in part, using a voice recognition dictation system. Departure Departure: Impression: Primary Impression: Chest pain at rest Disposition: ADMITTED INPATIENT Admitting Physician: Other (Alverto) Condition: GOOD Referrals: RICHARDSON SALVADOR MD (PCP) KARAN WISE Jr., DO Aug 22, 2018 02:08
[2018-08-22] MEDS ORDERED: ASPIRIN 81 MG TAB.CHEW PO ONE ×2 (02:15)
[2018-08-22] MEDS ORDERED: NITROGLYCERIN SUBLINGUAL 0.4 MG BOTTLE OF 25. SL PRN (02:15)
[2018-08-22 02:23] LABS: BASO # 0.1 x10^3/uL (0.0-0.2); BASO % 1 % (0-3); EOS # 0.2 x10^3/uL (0.0-0.7); EOS % 2 % (0-3); HEMOGLOBIN 12.4 g/dL (12.0-15.5); LYMPH % 37 % (24-48); MEAN CORPUSCULAR HEMOGLOBIN 30 pg (25-35); MEAN CORPUSCULAR HGB CONC 34 g/dL (31-37); MEAN CORPUSCULAR VOLUME 90 fL (79-100); MONO # 0.7 x10^3/uL (0.0-1.1); MONO % 9 % (0-9); NEUT # 4.1 x10^3uL (1.8-7.7); NEUT % 51 % (31-73); PLATELET COUNT 223 x10^3/uL (140-400); RED BLOOD COUNT 4.12 x10^6/uL (3.50-5.40); RED CELL DISTRIBUTION WIDTH 14.2 % (11.5-14.5)
[2018-08-22 02:38] LABS: ALBUMIN 3.7 g/dL (3.4-5.0); ALBUMIN/GLOBULIN RATIO 1.1 (1.0-1.7); CALCIUM 8.4 mg/dL (8.5-10.1); CREATININE 0.9 mg/dL (0.6-1.0); GFR 66.8; MAGNESIUM 1.8 mg/dL (1.8-2.4); POTASSIUM 3.1 mmol/L (3.5-5.1); TOTAL BILIRUBIN 0.2 mg/dL (0.2-1.0)
[2018-08-22] MEDS ORDERED: ONDANSETRON PF 4 MG/2 ML VIAL. IV PRN (02:45)
--- NOTE | 2018-08-22 02:58 | EKG ---
[address] [address] Test Date: 2018-08-22 Test Time: 01:57:47 Pat Name: AMADO LAM Department: Room: Gender: F [employer]: : 1970 Requested By: KARAN WISE Order Number: [id number] Reading MD: Brice Rojo MD Measurements Intervals Douglas Rate: 76 P: 30 IL: 210 QRS: -31 QRSD: 94 T: 56 QT: 408 QTc: 464 Interpretive Statements SINUS RHYTHM ABNORMAL LEFT AXIS DEVIATION QRS(T) CONTOUR ABNORMALITY CONSISTENT WITH ANTERIOR INFARCT Electronically Signed On 08-22-2018 13:36:30 CAGER OPERATOR by Brice Rojo MD
[2018-08-22] MEDS ORDERED: POTASSIUM CHLORIDE 20 MEQ TABLET.ER. PO ONE (03:00)
[2018-08-22] MEDS ORDERED: ONDANSETRON PF 4 MG/2 ML VIAL. IV ONE (03:00)
[2018-08-22 03:36] VITALS: BP 112/73
[2018-08-22] MEDS ORDERED: EZET10TA26 PO (04:14)
[2018-08-22] MEDS ORDERED: VENL75CA6 PO (04:14)
[2018-08-22] MEDS ORDERED: SACU1TAB7 PO (04:14)
[2018-08-22] MEDS ORDERED: PRAS10TA10 PO (04:14)
[2018-08-22] MEDS ORDERED: ROSU40TA21 PO (04:14)
[2018-08-22] MEDS ORDERED: METF10007 PO (04:14)
--- NOTE | 2018-08-22 04:34 | NUR ---
The patient, AMADO LAM, 48 y/o, F admitted by CALEB FRANCISCO DO, was given written information regarding hospital policies, unit procedures and contact persons. Patient arrived via EMS from the ER, got report from nurse Costello. Patient stated that the chest pain started about 12:15 in the morning. is at bedside. Went over plan of care with patient. Valuables were checked and left at bedside.
[2018-08-22 05:27] VITALS: BP 103/69
--- NOTE | 2018-08-22 05:27 | NUR ---
Consult called to Dr. Ibrahim he stated that he would see patient today and to call if we have any other concerns.
[2018-08-22] MEDS ORDERED: CARV25TA2 PO (07:44)
[2018-08-22] MEDS ORDERED: KETOROLAC 30 MG/ML VIAL. IV ONE (08:00)
[2018-08-22] MEDS ORDERED: CARVEDILOL 12.5 MG TABLET PO SCH (08:00)
[2018-08-22] MEDS ORDERED: metFORMIN 500 MG TABLET PO SCH (08:00)
[2018-08-22] MEDS ORDERED: ASPIRIN ENTERIC COATED 81 MG TABLET.DR. PO SCH (08:00)
[2018-08-22 08:05] LABS: ALBUMIN 3.4 g/dL (3.4-5.0); ALBUMIN/GLOBULIN RATIO 1.1 (1.0-1.7); CALCIUM 8.3 mg/dL (8.5-10.1); CREATININE 0.8 mg/dL (0.6-1.0); GFR 76.6; POTASSIUM 4.1 mmol/L (3.5-5.1); TOTAL BILIRUBIN 0.3 mg/dL (0.2-1.0); TOTAL PROTEIN 6.4 g/dL (6.4-8.2)
[2018-08-22] MEDS: PRAMIPEXOLE 0.5 MG TABLET. PO SCH ×2 (08:39→14:26)
[2018-08-22] MEDS ORDERED: OMEGA-3 FATTY ACIDS/FISH OIL 1,000 MG CAPSULE. PO SCH (09:00)
[2018-08-22] MEDS ORDERED: VENLAFAXINE XR 37.5 MG CAP.ER.24H. PO SCH (09:00)
[2018-08-22] MEDS ORDERED: PRASUGREL HCL 10 MG PO SCH (09:00)
[2018-08-22] MEDS ORDERED: EZETIMIBE 10 MG TABLET PO SCH (09:00)
[2018-08-22] MEDS ORDERED: FUROSEMIDE 20 MG TABLET PO SCH (09:00)
[2018-08-22] MEDS ORDERED: MULTIVITAMIN with MINERAL TABLET. PO SCH (09:00)
[2018-08-22] MEDS ORDERED: SACUBITRIL/VALSARTAN 49/51MG TABLET. PO SCH (09:00)
--- NOTE | 2018-08-22 09:03 | HP ---
ADMIT DATE: 08/22/2018 HISTORY OF PRESENT ILLNESS: The patient is a 48-year-old female patient, who basically presented to the Emergency Room with the complaint of left-sided chest pain started about 12:15. This morning, the pain woke her up from sleep. The pain is quite atypical of her typical chest pain. She stated the pain is partially dull and at times sharp and rates about 5 out 10, indicates that nothing seems to worsen or improve the pain. The patient denied any nausea or vomiting. Denied any diaphoresis, denied any shortness of breath, orthopnea or paroxysmal nocturnal dyspnea. The pain is mostly in the left side of the chest around her pacemaker, constant since onset and when she was given fentanyl, the pain was relieved and she managed to sleep a little bit, but when I saw her again, she still complained of the same pain around the same area, at the same intensity of about 5/10. She was evaluated in the Emergency Room and has had her first set of cardiac enzyme was less than 0.017 and apart from hypokalemia, all her other lab works are within acceptable range. PAST MEDICAL HISTORY: Her past medical history is significant for hypertension, hyperlipidemia, coronary artery disease, status post myocardial infarction x 2. She is status post PCI with stent deployment x 3. Her most recent echocardiogram available was done about in 2016, at that time showed that her ejection fraction is 40-45%. PAST SURGICAL HISTORY: Her past surgical history is significant for left heart catheterization, PCI with stent deployment x 3. She has also total abdominal hysterectomy. Allergies: She is ALLERGIC TO SULFA DRUGS. MEDICATIONS: She is currently on following medications: She is on prasugrel 10 mg tablet daily, Zetia 10 mg once a day, Crestor 40 mg at bedtime, omega-3 fatty acids 1 tablet daily, carvedilol 25 mg twice a day, and Entresto 49/51 mg tablet once a day. She is on aspirin 81 mg once a day, venlafaxine extended release 75 mg once a day, Mirapex 0.5 mg 3 times a day, potassium chloride 20 mEq at bedtime. She is on furosemide 20 mg daily, metformin 1000 mg p.o. b.i.d., and multivitamin 1 tablet once a day. FAMILY HISTORY: She has one brother and one sister, all younger. Her sister has hyperlipidemia. Her mother is alive at age of 71 and has hyperlipidemia. Her father is alive at the age of 75 and presumably seemingly healthy. SOCIAL HISTORY: She is , has no children. She never smoked. Drinks wine occasionally. Does not use any drugs. 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 REVIEW OF SYSTEMS: The patient denied any blurring of vision, cataract, glaucoma or macular degeneration. Denied any earache, tinnitus or sensorineural deafness. Denied any nosebleeds, stuffy nose or postnasal drip. Denied any sore throat, sore tongue, toothache, hoarseness of voice or difficulty swallowing. She did intentionally loss about 26 pounds. Denied any nausea, vomiting, diarrhea or constipation. Denied any hematemesis, melena or hematochezia. Denied any dysuria, frequency or hematuria. She did come to the office with chest pain, but denied any orthopnea or paroxysmal nocturnal dyspnea, cough, phlegm or hemoptysis. Denied any chills, rigors or fever. PHYSICAL EXAMINATION: GENERAL: On arrival to the Emergency Room, she looked well and was clearly in no apparent respiratory distress, pale; no jaundice, cyanosis, or thyromegaly. No jugular venous distension. No lower limb edema. VITAL SIGNS: Her heart rate was 75, blood pressure was 124/72, temperature was 97.4, respiratory rate was 18, and oxygen saturation was 100% on room air. HEENT: Examination of the head, eyes, ears, nose and throat showed normocephalic, atraumatic. NECK: Supple. HEART: Showed normal first and second heart sounds with no gallop, rub or murmur. CHEST: Clear to auscultation. No crepitation or rhonchi. ABDOMEN: Distended, soft, nontender. NEUROLOGIC: She was awake, alert, responding appropriately. Her cranial nerves are intact. EXTREMITIES: She moves extremities without difficulty. She ambulates without assistance or assistive devices. LABORATORY DATA AND IMAGING STUDIES: Her lab work showed a white cell count of 8000, hemoglobin 12, hematocrit 37, MCV 90, and platelet count of 223,000 with normal manual differential. Her prothrombin time was 9.7, INR 1, aPTT was 25. Her serum sodium was 133, potassium 3.1, chloride 99, bicarbonate 29, anion gap of 5, BUN 12, creatinine 0.9, estimated GFR was 66 mL per minute. Her glucose 115, calcium was 8.4, magnesium was 1.8. Total bilirubin, AST, ALT, alkaline phosphatase were normal. Her first troponin was less than 0.017. Her beta-natriuretic peptide was 367, total protein was 7, albumin 3.7. Her EKG demonstrated an atrial paced rhythm with a rate of 76. Her chest x-ray showed no acute cardiopulmonary abnormality. ASSESSMENT AND PLAN: The patient was admitted to do 2 more sets of cardiac enzyme. We will check her fasting lipid profile, consult the cardiology team. As she continued to have pain, which mostly in the left infraclavicular fossa around her pacemaker, we will try Toradol and see if that will alleviate the pain as it seems to be more musculoskeletal in nature. AARON HAYWARD MD DR: DALIA/eliu JOB#: [id number] / [id number]
--- NOTE | 2018-08-22 09:14 | RAD ---
PORTABLE CHEST 1V History: Chest pain, history of heart attack, pacemaker Comparison: February 09, 2018 Findings: Single view of the chest is submitted. There is again left electronic cardiac device. Pericardial cardiac silhouette is unchanged, somewhat enlarged. There is no significant pleural fluid, lobar infiltrate, pneumothorax. Impression: 1. There is no radiographic evidence of acute cardiopulmonary disease. Electronically signed by: Michi Christensen MD (08/22/2018 9:11 AM) [id number]
[2018-08-22 10:36] VITALS: BP 97/64
--- NOTE | 2018-08-22 11:24 | NUR ---
Patient continues to have left sided chest pain, does not become SOA or worse with movement. States it is sharp and stabbing pain located near her pacemaker area. Pt given x1 dose of toradol, states pain is 5/10. Pain relief remains at 5/10 after toradol was given. Nurse administered fentanyl x1 with relief, pain decreased to 2/10. Angela LACER AND TIER here at this time to see patient and cardiology aware of patients status. Pt remains Atrail paced.
--- NOTE | 2018-08-22 11:34 | PDOC2 ---
JES NYE RIVETER PNEUMATIC 08/22/18 1134: CONSULT Date of Admission DATE: 08/22/18 TIME: 11:13 Reason for Consult: chest pain Problem List Problems Medical Problems: (1) Chest pain at rest Status: Acute History of Present Illness Ms Barbosa is a 48 year old female with history of MA, PCI/stents, chronic systolic heart failure, AICD placement with last echo revealing EF 35-40%. She presents with complaints of sharp, left sided chest pain that woke her from sleep. She describes non exertional pain without exacerbating factors. No associated symptoms. No fever, chills, cough. No tenderness on palpation, no increase with exertion, position change or deep inspiration. She reports this is different from her typical anginal pain. She did have some relief with fentanyl but not with toradol. Vitaliy remain normal. no acute abn on EKG. She was noted recently on [employer] to have a decrease in her thoracic impedance and when contacted reported some increased fatigue but no overt heart failure type symptoms. She did increase her lasix for several days and reports that her symptoms improved. Past Medical History hypertension, hyperlipidemia, GERD, viral meningitis, coronary artery disease, status post myocardial infarction x 2 with PCI and stents x3. chronic systolic heart failure, EF most recently 35-40% in March of this year. AICD placement with [facility]. Past Surgical History left heart catheterization, PCI with stent deployment x 3, total abdominal hysterectomy. 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 Current Medications Current Medications Aspirin (Children'S Aspirin) 81 mg STK-MED ONCE .ROUTE ; Start 08/22/18 at 02: 01; Stop 08/22/18 at 02:02; Status DC Aspirin (Children'S Aspirin) 324 mg 1X ONCE PO Last administered on at 02:06; Start 08/22/18 at 02:15; Stop 08/22/18 at 02:28; Status DC Nitroglycerin (Nitrostat) 0.4 mg PRN Q5MIN PRN SL CP RATING > 1/10; Start 09/27 at 02:15; Stop 08/23/18 at 02:14 Aspirin (Children'S Aspirin) 324 mg 1X ONCE PO ; Start 08/22/18 at 02:15; Stop 08/22/18 at 02:29; Status DC Potassium Chloride (Klor-Con) 40 meq 1X ONCE PO Last administered on 03:00; Start 08/22/18 at 03:00; Stop 08/22/18 at 03:01; Status DC Fentanyl Citrate (Fentanyl 2ml Vial) 25 mcg 1X ONCE IV Last administered on 03:00; Start 08/22/18 at 03:00; Stop 08/22/18 at 03:01; Status DC Ondansetron HCl (Zofran) 4 mg 1X ONCE IV Last administered on 08/22/18 03:00 ; Start 08/22/18 at 03:00; Stop 08/22/18 at 03:01; Status DC Ondansetron HCl (Zofran) 4 mg PRN Q4HRS PRN IV NAUSEA/VOMITING 1ST CHOICE; Start 08/22/18 at 02:45; Stop 08/23/18 at 02:44 Fentanyl Citrate (Fentanyl 2ml Vial) 25 mcg PRN Q2HR PRN IV SEVERE PAIN Last administered on 08/22/18 09:21; Start 08/22/18 at 02:45; Stop 08/23/18 at 02 :44 Furosemide (Lasix) 20 mg DAILY PO Last administered on 08/22/18 08:38; Start 08/22/18 at 09:00 Aspirin (Aspirin Enteric Coated) 81 mg DAILYWBKFT PO Last administered on 08/22 08:40; Start 08/22/18 at 08:00 Carvedilol (Coreg) 25 mg BIDWMEALS PO Last administered on 08/22/18 08:40; Start 08/22/18 at 08:00 EZETIMIBE (Zetia) 10 mg DAILY PO Last administered on 08/22/18 08:38; Start 08/22/18 at 09:00 Metformin HCl (Glucophage) 1,000 mg BIDWMEALS PO Last administered on 08:40; Start 08/22/18 at 08:00 Multivitamins/ Calcium (Thera-M Plus) 1 tab DAILY PO Last administered on 08/22 08:39; Start 08/22/18 at 09:00 Fish Oil (Fish Oil) 1,000 mg DAILY PO Last administered on 08/22/18 08:38; Start 08/22/18 at 09:00 Potassium Chloride (Klor-Con) 20 meq QHS PO ; Start 08/22/18 at 21:00 Pramipexole Dihydrochloride (miraPEX) 0.5 mg [id number] PO Last administered on 09/27at 08:39; Start 08/22/18 at 09:00 Non-Formulary Medication (Prasugrel HCl ) 10 mg DAILY PO ; Start 08/22/18 at 09 :00; Status UNV Atorvastatin Calcium (Lipitor) 80 mg QHS PO ; Start 08/22/18 at 21:00 Sacubitril/ Valsartan (Entresto 49 Mg-51 Mg) 1 tab BID PO Last administered on 08/22/18at 08:39; Start 08/22/18 at 09:00 Venlafaxine HCl (Effexor Xr) 75 mg DAILY PO Last administered on 08/22/18at 08: 39; Start 08/22/18 at 09:00 Ketorolac Tromethamine (Toradol 30mg Vial) 30 mg 1X ONCE IV Last administered on 08/22/18at 08:41; Start 08/22/18 at 08:00; Stop 08/22/18 at 08:04; Status DC Active Scripts Active Reported Carvedilol 25 Mg Tablet 1 Tab PO BID Ezetimibe 10 Mg Tablet 1 Tab PO DAILY Venlafaxine Hcl Er (Venlafaxine Hcl) 75 Mg Cap.er.24h 1 Cap PO DAILY Entresto 49 mg-51 mg Tablet (Sacubitril/Valsartan) 1 Each Tablet 1 Tab PO DAILY Metformin Hcl 1,000 Mg Tablet 1,000 Mg PO BID Prasugrel HCl 10 Mg Tablet 10 Mg PO DAILY Multi Vitamin Daily (Multivitamin) 1 Each Tablet 1 Each PO DAILY Fish Oil 1,400 Mg Softgel ([place]-3/Dha/Epa/Fish Oil) 1 Each Capsule.dr 1 Each PO DAILY Mirapex (Pramipexole Di-Hcl) 0.5 Mg Tablet 0.5 Mg PO TID K-Tab ER (Potassium Chloride) 20 Meq Tablet.er 20 Meq PO HS Lasix (Furosemide) 20 Mg Tablet 20 Mg PO DAILY Aspir 81 (Aspirin) 81 Mg Tablet.dr 81 Mg PO DAILY Crestor (Rosuvastatin Calcium) 40 Mg Tablet 40 Mg PO QHS Allergies: Coded Allergies: Sulfa (Sulfonamide Antibiotics) (Verified Allergy, Intermediate, 02/09/18) Review of System as per HPI or negative General: Alert, Oriented X3, Cooperative, No acute distress HEENT: Atraumatic, EOMI, Mucous membr. moist/pink Lungs: Clear to auscultation, Normal air movement Heart: Normal S1, Normal S2, Other (no gallops, clicks or rubs) Abdomen: Normal bowel sounds, Soft, No tenderness Extremities: No cyanosis, No edema, Normal pulses Neuro: Normal speech, Strength at 5/5 X4 ext Psych/Mental Status: Mental status NL, Mood NL VITALS Vital Signs Date Time Temp Pulse Resp B/P (MAP) Pulse Ox O2 Delivery O2 Flow Rate FiO2 08/22/18 10:36 98.0 70 20 97/64 (75) 96 Room Air Labs Laboratory Tests Test 08/22/18 01:56 08/22/18 05:45 08/22/18 08:37 White Blood Count 8.0 x10^3/uL (4.0-11.0) Red Blood Count 4.12 x10^6/uL (3.50-5.40) Hemoglobin 12.4 g/dL (12.0-15.5) Hematocrit 37.0 % (36.0-47.0) Mean Corpuscular Volume 90 fL (79-100) Mean Corpuscular Hemoglobin 30 pg (25-35) Mean Corpuscular Hemoglobin Concent 34 g/dL (31-37) Red Cell Distribution Width 14.2 % (11.5-14.5) Platelet Count 223 x10^3/uL (140-400) Neutrophils (%) (Auto) 51 % (31-73) Lymphocytes (%) (Auto) 37 % (24-48) Monocytes (%) (Auto) 9 % (0-9) Eosinophils (%) (Auto) 2 % (0-3) Basophils (%) (Auto) 1 % (0-3) Neutrophils # (Auto) 4.1 x10^3uL (1.8-7.7) Lymphocytes # (Auto) 3.0 x10^3/uL (1.0-4.8) Monocytes # (Auto) 0.7 x10^3/uL (0.0-1.1) Eosinophils # (Auto) 0.2 x10^3/uL (0.0-0.7) Basophils # (Auto) 0.1 x10^3/uL (0.0-0.2) Prothrombin Time 9.7 SEC (9.4-11.4) Prothromb Time International Ratio 1.0 (0.9-1.1) Activated Partial Thromboplast Time 25 SEC (23-33) Sodium Level 133 mmol/L (136-145) 139 mmol/L (136-145) Potassium Level 3.1 mmol/L (3.5-5.1) 4.1 mmol/L (3.5-5.1) Chloride Level 99 mmol/L (98-107) 104 mmol/L (98-107) Carbon Dioxide Level 29 mmol/L (21-32) 25 mmol/L (21-32) Anion Gap 5 (6-14) 10 (6-14) Blood Urea Nitrogen 12 mg/dL (7-20) 13 mg/dL (7-20) Creatinine 0.9 mg/dL (0.6-1.0) 0.8 mg/dL (0.6-1.0) Estimated GFR (Cockcroft-Gault) 66.8 76.6 BUN/Creatinine Ratio 13 (6-20) 16 (6-20) Glucose Level 115 mg/dL (70-99) 104 mg/dL (70-99) Calcium Level 8.4 mg/dL (8.5-10.1) 8.3 mg/dL (8.5-10.1) Magnesium Level 1.8 mg/dL (1.8-2.4) Total Bilirubin 0.2 mg/dL (0.2-1.0) 0.3 mg/dL (0.2-1.0) Aspartate Amino Transf (AST/SGOT) 17 U/L (15-37) 15 U/L (15-37) Alanine Aminotransferase (ALT/SGPT) 35 U/L (14-59) 30 U/L (14-59) Alkaline Phosphatase 49 U/L (46-116) 43 U/L (46-116) Troponin I Quantitative < 0.017 ng/mL (0-0.055) < 0.017 ng/mL (0-0.055) < 0.017 ng/mL (0-0.055) OP-Jgq-R-Type Natriuretic Peptide 367 pg/mL (0-124) Total Protein 7.0 g/dL (6.4-8.2) 6.4 g/dL (6.4-8.2) Albumin 3.7 g/dL (3.4-5.0) 3.4 g/dL (3.4-5.0) Albumin/Globulin Ratio 1.1 (1.0-1.7) 1.1 (1.0-1.7) Images CXR - Impression: 1. There is no radiographic evidence of acute cardiopulmonary disease. EKG - a paced, v sensed, old AWMI, no acute changes. Assessment/Plan 1. Chest pain, atypical - Vitaliy negative despite prolonged pain. No acute EKG changes. 2. CAD s/p prior PCI/stenting - last cath 2015. 3. chronic systolic heart failure, most recent echo EF 35-40% - compensated currently. Will have AICD interrogated for function and TI. 4. hypotension - mild and baseline for her 5. HLD - continue statin. TJ FISCHER MD 08/22/18 5913: CONSULT Assessment/Plan Patient seen and examined. Agree with above nurse practitioner note with the following comments 48-year-old woman with a very atypical/noncardiac chest pain. Initial evaluation including EKG, enzymes and d-dimer is unremarkable. Suspect this may be stress related. Supportive care. Okay to discharge from a cardiac standpoint. JES NYE APRN Aug 22, 2018 11:34 TJ FISCHER MD Aug 22, 2018 16:54
--- NOTE | 2018-08-22 14:00 | NUR ---
Dr. Espinal here at this time, states he will order a DDimer and if it is negative then patient is okay to discharge home. Patient states fentanyl has helped relieve pain to left side of chest.
[2018-08-22 15:01] VITALS: BP 107/65
--- NOTE | 2018-08-22 15:45 | NUR ---
DDimer 0.38, Dr. Espinal and Dr. Batista notified. Orders okay to discharge home. Notified patient at this time.
--- NOTE | 2018-08-22 16:00 | NUR ---
Patient ambulated off unit at this time with . IV discontinued and belongings left with patient. Patient verbalized POC and understands DC instructions. Patient to follow up with Dr. Espinal in 1 month, as well as take a few days off for rest.
[2018-08-22] MEDS ORDERED: POTASSIUM CHLORIDE 20 MEQ TABLET.ER. PO SCH (21:00)
[2018-08-22] MEDS ORDERED: ATORVASTATIN CALCIUM 20 MG TABLET PO SCH (21:00)
== END 2018-08-22 16:00 | disposition home or self-care (01) | DRG 313 ==
LOC: ER 01:38 → 1 SOUTH 02:43
PROVIDERS: ADMIT Neuromusculoskeletal Medicine & OMM; ATTEND Neuromusculoskeletal Medicine & OMM
DX: R07.89 Other chest pain (principal); I50.22 Chronic systolic (congestive) heart failure; E78.00 Pure hypercholesterolemia, unspecified; E78.5 Hyperlipidemia, unspecified; E87.6 Hypokalemia; I11.0 Hypertensive heart disease with heart failure; I25.10 Atherosclerotic heart disease of native coronary artery without angina pectoris; K21.9 Gastro-esophageal reflux disease without esophagitis; Z90.710 Acquired absence of both cervix and uterus; I25.2 Old myocardial infarction; Z79.899 Other long term (current) drug therapy; Z95.5 Presence of coronary angioplasty implant and graft; Z95.810 Presence of automatic (implantable) cardiac defibrillator
CPT/HCPCS: 36415; 71045; 80053; 80061; 83735; 83880; 84484; 85025; 85379; 85610; 85730; 93005; 96374; 96375; J1885; J2405; J3010; 99285-25

== ENCOUNTER → 2018-09-14 | Outpatient (CLI) | payer OTHER ==
[2018-08-22 15:01] VITALS: BP 107/65
[~2018-09-14] MED LIST changes: +CARV25TA2 PO; +EZET10TA26 PO; +METF10007 PO; +PRAS10TA10 PO; +ROSU40TA21 PO; +SACU1TAB7 PO; +VENL75CA6 PO
== END | disposition home or self-care (01) ==
LOC: LAB 09-13 13:36 → EDSTATUS 07:18
PROVIDERS: ATTEND Internal Medicine Cardiovascular Disease
DX: E78.5 Hyperlipidemia, unspecified (principal)
CPT/HCPCS: 80061

== ENCOUNTER → 2018-09-26 | Outpatient (CLI) | payer OTHER ==
--- NOTE | 2018-09-27 08:39 | RAD ---
DATE: 09/26/2018 2:00 AM EXAM: MAMMO YARI SCREENING BILATERAL HISTORY: routine screening evaluation. COMPARISON: Prior mammographic imaging dating back to 02/25/2016 Bilateral CC and MLO views of the breasts were performed. Bilateral breast tomosynthesis was performed in CC and MLO projections. This study was interpreted with the benefit of Computerized Aided Detection (CAD ). Breast Density: The breast parenchyma shows scattered fibroglandular densities. Breast parenchyma level B. FINDINGS: Benign calcifications are present. The parenchymal pattern appears stable. Mass in the posterior depth right breast is stable to at least 02/25/2016. No suspicious masses, microcalcifications or architectural distortion is present to suggest malignancy in either breast. The visualized axillae are unremarkable. Left axilla is partially obscured by pacemaker. IMPRESSION: No mammographic evidence of malignancy. BI-RADS CATEGORY: 2 BENIGN FINDING(S) RECOMMENDED FOLLOW-UP: 12M 12 MONTH FOLLOW-UP Annual screening mammography is recommended, unless clinically indicated sooner based on symptoms or change in physical exam. PQRS compliance statement: Patient information was entered into a reminder system with a target due date for the next mammogram. Mammography is a sensitive method for finding small breast cancers, but it does not detect them all and is not a substitute for careful clinical examination. A negative mammogram does not negate a clinically suspicious finding and should not result in delay in biopsying a clinically suspicious abnormality. "Our facility is accredited by the [employer] Mammography Program." ESTHERD
== END | disposition home or self-care (01) ==
LOC: MAMMO 14:40
PROVIDERS: ATTEND Family Medicine
DX: Z12.31 Encounter for screening mammogram for malignant neoplasm of breast (principal)
CPT/HCPCS: 77063; 77067

== ENCOUNTER → 2018-10-19 | Outpatient (CLI) | payer OTHER ==
--- NOTE | 2018-10-19 15:21 | RAD ---
EXAM: Chest, 2 views. HISTORY: Defibrillator placement. COMPARISON: 08/22/2018 FINDINGS: 2 views of chest are obtained. There is a dual lead left cardiac pacemaker defibrillator. The leads are in expected position. There is no infiltrate, pleural effusion or pneumothorax. The heart is normal in size. IMPRESSION: Dual lead left cardiac pacemaker defibrillator overlying expected position. Electronically signed by: Jennifer Armenta MD (10/19/2018 3:17 PM) [facility]
== END | disposition home or self-care (01) ==
LOC: RAD 14:09
PROVIDERS: ATTEND Internal Medicine Cardiovascular Disease
DX: I25.5 Ischemic cardiomyopathy (principal); Z95.0 Presence of cardiac pacemaker
CPT/HCPCS: 71046

== ENCOUNTER 2018-11-25 17:03 | Emergency (ER) | payer OTHER ==
[~2018-11-25] VITALS: Ht 162.6 cm; Wt 96.0 kg
[~2018-11-25 17:03] MED LIST changes: -EZET10TA26 PO; +EZET10TA49 PO; -ROSU40TA21 PO; +ROSU40TA22 PO
[2018-11-25 17:11] VITALS: BP 127/85
[2018-11-25] MEDS ORDERED: IV NORMAL SALINE 1,000ML 1,000 ML IV ONE (17:30)
--- NOTE | 2018-11-25 17:46 | PHYS DOC ---
Past History Past Medical History: Bronchitis, CAD, High Cholesterol, Hypertension, [place], UTI (JAME KING DO) Past Surgical History: Hysterectomy, Tonsillectomy (JAME KING DO) Smoking: Non-smoker Alcohol Use: Occasionally Drug Use: None (JAME KING DO) Adult General Chief Complaint Chief Complaint: FEVER HPI HPI 48-year-old female presents with 3 day history of cough, low-grade fever, and generalized fatigue. Patient was told to see her PCP today, but the office was closed due to ankle whether. She has been feeling dehydrated and felt like she should come in for more thorough evaluation. Eyes nausea, vomiting, diarrhea, chest pain. 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 Denies current fever. (JAME KING DO) Review of Systems Review of Systems Constitutional: Fever and chills [] Eyes: Denies change in visual acuity, redness, or eye pain [] HENT: nasal congestion without sore throat. Decreased voice. [] Respiratory: Cough without shortness of breath [] Cardiovascular: No additional information not addressed in HPI [] GI: Denies abdominal pain, nausea, vomiting, bloody stools or diarrhea [] : Denies dysuria or hematuria [] Musculoskeletal: Denies back pain or joint pain [] Integument: Denies rash or skin lesions [] Neurologic: Mild headache. Denies focal weakness or sensory changes [] Endocrine: Denies polyuria or polydipsia [] All other systems were reviewed and found to be within normal limits, except as documented in this note. (JAME KING DO) Current Medications Current Medications Current Medications Medications (Trade) Dose Ordered Sig/Navin Start Time Stop Time Status Last Admin Dose Admin Sodium Chloride 1,000 ml @ 1,000 mls/hr 1X ONCE 11/25/18 17:30 11/25/18 18:29 (JAME KING DO) Allergies Allergies Allergies Coded Allergies Type Severity Reaction Last Updated Verified Sulfa (Sulfonamide Antibiotics) Allergy Intermediate 02/09/18 Yes (JAME KING DO) Physical Exam Physical Exam Constitutional: Well developed, well nourished, no acute distress, non-toxic appearance. [] HENT: Normocephalic, atraumatic, bilateral external ears normal, oropharynx dry , no oral exudates, nose normal. [] Eyes: PERRLA, EOMI, conjunctiva normal, no discharge. [] Neck: Normal range of motion, no tenderness, supple, no stridor. [] Cardiovascular:Heart rate regular rhythm, no murmur [] Lungs & Thorax: Bilateral breath sounds clear to auscultation [] Abdomen: Bowel sounds normal, soft, no tenderness, no masses, no pulsatile masses. [] Skin: Warm, dry, no erythema, no rash. [] Back: No tenderness, no CVA tenderness. [] Extremities: No tenderness, no cyanosis, no clubbing, ROM intact, no edema. [] Neurologic: Alert and oriented X 3, normal motor function, normal sensory function, no focal deficits noted. [] Psychologic: Affect normal, judgement normal, mood normal. [] (JAME KING DO) Current Patient Data Vital Signs Vital Signs Date Time Temp Pulse Resp B/P (MAP) Pulse Ox O2 Delivery O2 Flow Rate FiO2 11/25/18 17:11 97.7 78 22 100 Room Air 20.0 (JAME KING DO) EKG EKG [] (JAME KING DO) Radiology/Procedures Radiology/Procedures [] (JAME KING DO) Course & Med Decision Making Course & Med Decision Making Pertinent Labs and Imaging studies reviewed. (See chart for details) Patient's labs are pending. I have given her 1 L normal saline. I'm signing the patient out to Dr. Mcghee for final disposition at 1835. [] (JAME KING DO) Course & Med Decision Making Diagnoses influenza B Patient will be discharged home on Tamiflu (JB DEAN MD) Dragon Disclaimer Dragon Disclaimer This electronic medical record was generated, in whole or in part, using a voice recognition dictation system. (JAME KING DO) Departure Departure: Impression: Primary Impression: Cough Additional Impression: Fever Referrals: RICHARDSON SALVADOR MD (PCP) Scripts Promethazine Hcl/Codeine (PROMETHAZINE-CODEINE SYRUP) 118 Ml Syrup 5 ML PO Q4-6HRS for ., #120 ML Prov: JB DEAN MD 11/25/18 Oseltamivir Phosphate (TAMIFLU) 75 Mg Capsule 1 CAP PO BID for ., #9 CAP Prov: JB DEAN MD 11/25/18 Problem Qualifiers JAME KING DO Nov 25, 2018 17:46 JB DEAN MD Nov 25, 2018 19:21
[2018-11-25 18:42] LABS: BASO % 1 % (0-3); EOS # 0.2 x10^3/uL (0.0-0.7); EOS % 3 % (0-3); HEMATOCRIT 34.7 % (36.0-47.0); HEMOGLOBIN 11.4 g/dL (12.0-15.5); LYMPH % 28 % (24-48); MEAN CORPUSCULAR HEMOGLOBIN 30 pg (25-35); MEAN CORPUSCULAR HGB CONC 33 g/dL (31-37); MEAN CORPUSCULAR VOLUME 90 fL (79-100); MONO # 0.7 x10^3/uL (0.0-1.1); MONO % 10 % (0-9); NEUT # 4.3 x10^3uL (1.8-7.7); NEUT % 59 % (31-73); PLATELET COUNT 182 x10^3/uL (140-400); RED BLOOD COUNT 3.87 x10^6/uL (3.50-5.40); RED CELL DISTRIBUTION WIDTH 15.2 % (11.5-14.5); WHITE BLOOD COUNT 7.3 x10^3/uL (4.0-11.0)
[2018-11-25 18:43] LABS: INFLUENZA A PATIENT NEGATIVE (NEGATIVE); INFLUENZA B PATIENT POSITIVE (NEGATIVE)
[2018-11-25 19:03] LABS: ALBUMIN 3.4 g/dL (3.4-5.0); CALCIUM 8.5 mg/dL (8.5-10.1); CREATININE 0.8 mg/dL (0.6-1.0); GFR 76.6; POTASSIUM 4.1 mmol/L (3.5-5.1); TOTAL BILIRUBIN 0.2 mg/dL (0.2-1.0); TOTAL PROTEIN 6.7 g/dL (6.4-8.2)
[2018-11-25] MEDS ORDERED: OSEL75CA PO (19:19)
[2018-11-25] MEDS ORDERED: PROM118S5 PO (19:19)
[2018-11-25] MEDS ORDERED: OSELTAMIVIR 75 MG CAPSULE PO ONE (19:30)
[2018-11-25] MEDS ORDERED: PROMETH/CODEINE 6.25/10MG 5 ML SYRUP. PO ONE (19:30)
--- NOTE | 2018-11-25 22:59 | RAD ---
PA and lateral chest radiographs 11/25/2018 CLINICAL HISTORY: Fever and body aches with productive cough. PA and lateral digital radiographs of the chest were obtained. Comparison study is dated 10/19/2018. A pacemaker is unchanged position. The cardiac silhouette is borderline enlarged. The thoracic aorta is mildly tortuous. No acute pulmonary infiltrate is seen. No pleural effusion or pneumothorax is noted. The osseous structures are grossly intact. IMPRESSION: No acute abnormality is seen. Electronically signed by: Isrrael Ingram MD (11/25/2018 10:56 PM) [facility]
== END 2018-11-25 20:13 | disposition home or self-care (01) ==
LOC: ER 17:03
DX: R05 Cough (principal); R50.9 Fever, unspecified; E86.0 Dehydration; R51 Headache; I25.10 Atherosclerotic heart disease of native coronary artery without angina pectoris; E78.00 Pure hypercholesterolemia, unspecified; I10 Essential (primary) hypertension; I25.2 Old myocardial infarction; Z87.440 Personal history of urinary (tract) infections; Z88.2 Allergy status to sulfonamides
CPT/HCPCS: 36415; 71046; 80053; 85025; 87804; 96360; 96361; 99284-25; J7030

== ENCOUNTER → 2018-12-28 | Outpatient (CLI) | payer OTHER ==
[~2018-12-28] MED LIST changes: +OSEL75CA PO; +PROM118S5 PO; +ROSU40TA21 PO; -ROSU40TA22 PO
[2018-12-28 10:13] LABS: BASO # 0.1 x10^3/uL (0.0-0.2); BASO % 1 % (0-3); EOS # 0.1 x10^3/uL (0.0-0.7); EOS % 2 % (0-3); HEMATOCRIT 39.6 % (36.0-47.0); HEMOGLOBIN 13.2 g/dL (12.0-15.5); LYMPH # 1.7 x10^3/uL (1.0-4.8); LYMPH % 23 % (24-48); MEAN CORPUSCULAR HEMOGLOBIN 29 pg (25-35); MEAN CORPUSCULAR HGB CONC 33 g/dL (31-37); MEAN CORPUSCULAR VOLUME 88 fL (79-100); MONO # 0.5 x10^3/uL (0.0-1.1); MONO % 7 % (0-9); NEUT % 68 % (31-73); PLATELET COUNT 207 x10^3/uL (140-400); RED BLOOD COUNT 4.52 x10^6/uL (3.50-5.40); RED CELL DISTRIBUTION WIDTH 14.8 % (11.5-14.5); WHITE BLOOD COUNT 7.5 x10^3/uL (4.0-11.0)
[2018-12-28 10:16] LABS: CALCIUM 8.9 mg/dL (8.5-10.1); CREATININE 0.9 mg/dL (0.6-1.0); GFR 66.8
[2018-12-28 14:16] LABS: FREE T4 0.82 ng/dL (0.76-1.46); THYROID STIM HORMONE (TSH) 2.563 uIU/mL (0.358-3.740)
[2018-12-28 19:09] LABS: FSH 17.4 mIU/mL (.); LUTEINIZING HORMONE 33.3 mIU/mL (.); PROGESTERONE 0.5 ng/mL (.)
== END | disposition home or self-care (01) ==
LOC: LAB 08:59
PROVIDERS: ATTEND Physician Assistant Medical
DX: E34.9 Endocrine disorder, unspecified (principal)
CPT/HCPCS: 36415; 80048; 82672; 83001; 83002; 84144; 84439; 84443; 84481; 85025

== ENCOUNTER → 2019-03-31 | Outpatient (CLI) | payer OTHER ==
[~2019-03-31] MED LIST changes: -ROSU40TA21 PO; +ROSU40TA22 PO
--- NOTE | 2019-03-31 16:28 | RAD ---
Right knee, 3 views, 03/31/2019: HISTORY: Fall, knee pain No fracture or dislocation is identified. The knee joint space is well maintained. No joint effusion is evident. IMPRESSION: No acute right knee abnormality is detected. Electronically signed by: Champ Baker MD (03/31/2019 4:25 PM) [facility]
== END | disposition home or self-care (01) ==
LOC: PMG 13:57
PROVIDERS: ATTEND Family Medicine
DX: M25.561 Pain in right knee (principal); M79.89 Other specified soft tissue disorders; W19.XXXA Unspecified fall, initial encounter; Y93.89 Activity, other specified; Y92.89 Other specified places as the place of occurrence of the external cause; Y99.8 Other external cause status
CPT/HCPCS: 73562

== ENCOUNTER → 2019-04-14 | Outpatient (CLI) | payer OTHER ==
[2019-04-14 09:18] LABS: ALBUMIN/GLOBULIN RATIO 1.2 (1.0-1.7); CALCIUM 9.1 mg/dL (8.5-10.1); CREATININE 0.9 mg/dL (0.6-1.0); GFR 66.8; POTASSIUM 4.2 mmol/L (3.5-5.1); TOTAL BILIRUBIN 0.3 mg/dL (0.2-1.0); TOTAL PROTEIN 7.3 g/dL (6.4-8.2)
== END | disposition home or self-care (01) ==
LOC: LAB 08:07
PROVIDERS: ATTEND Family Medicine
DX: E78.5 Hyperlipidemia, unspecified (principal)
CPT/HCPCS: 36415; 80053; 80061

== ENCOUNTER → 2019-04-14 | Outpatient (CLI) | payer OTHER | END | disposition home or self-care (01) | LOC: LAB 08:02 | PROVIDERS: ATTEND Internal Medicine Cardiovascular Disease | DX: I25.5 Ischemic cardiomyopathy (principal) | CPT/HCPCS: 80061 ==

== ENCOUNTER → 2019-04-18 | Outpatient (CLI) | payer OTHER ==
--- NOTE | 2019-04-18 13:38 | CARD ---
MR#: [id number] Date of Study: 04/18/2019 Ordering Physician: TJ FISCHER, Referring Physician: TJ FISCHER, Tech: Enid Nash [facility] APPROVED REPORT EXAM: Two-dimensional and M-mode echocardiogram with Doppler and color Doppler. Other Information Quality : Technically LimitedHR: 68bpm Rhythm : NSRTechnically limited study due to body habitus. INDICATION Cardiomyopathy 2D DIMENSIONS RVDd2.9 (2.9-3.5cm)Left Atrium(2D)3.2 (1.6-4.0cm) IVSd1.0 (0.7-1.1cm)Aortic Root(2D)2.8 (2.0-3.7cm) LVDd4.6 (3.9-5.9cm)LVOT Diameter2.0 (1.8-2.4cm) PWd0.8 (0.7-1.1cm)LVDs3.7 (2.5-4.0cm) FS (%) 18.1 %SV36.1 ml LVEF(%)37.7 (>50%) M-Mode DIMENSIONS Left Atrium(MM)3.58 (2.5-4.0cm)Aortic Root3.10 (2.2-3.7cm) Aortic Valve AoV Peak Blas.129.8cm/sAoV VTI22.5cm AO Peak GR.6.7mmHgLVOT Peak Blas.94.5cm/s LVOT VTI 18.93cmAO Mean GR.3mmHg YVES (VMAX)2.26hn5CAQ (VTI)2.52cm2 Mitral Valve MV E Hmcuwjpc00.6cm/sMV DECEL VMBW111ss MV A Vnhiijsp50.3cm/sE/A Ratio1.2 Pulmonary Valve PV Peak Plosyjzt39.5cm/sPV Peak Grad.3mmHg Tricuspid Valve TR P. Rlqrzymc150uw/sRAP URYQHZMC7stNk TR Peak Gr.67rgVpSCVM37yzJf LEFT VENTRICLE The left ventricle is normal size. There is normal left ventricular wall thickness. The left ventricu lar systolic function is moderately impaired. The Ejection Fraction is 35-40%. Transmitral Doppler fl ow pattern is Grade II-pseudonormal filling dynamics. RIGHT VENTRICLE The right ventricle is normal size. There is normal right ventricular wall thickness. The right ventr icular systolic function is normal. ICD lead noted in RV/RA. ATRIA The left atrium size is normal. The right atrium size is normal. The interatrial septum is intact wit h no evidence for an atrial septal defect or patent foramen ovale as noted on 2-D or Doppler imaging. AORTIC VALVE The aortic valve is not well visualized. The aortic valve is probably trileaflet. Doppler and Color F low revealed no significant aortic regurgitation. There is no significant aortic valvular stenosis. MITRAL VALVE The mitral valve is normal in structure and function. There is no evidence of mitral valve prolapse. There is no mitral valve stenosis. Doppler and Color-flow revealed trace mitral regurgitation. TRICUSPID VALVE The tricuspid valve is normal in structure and function. Doppler and Color Flow revealed trace tricus pid regurgitation. The PA pressure was estimated at 23 mmHg. There is no tricuspid valve prolapse or vegetation. There is no tricuspid valve stenosis. PULMONIC VALVE The pulmonic valve is not well visualized. GREAT VESSELS The aortic root is normal in size. The ascending aorta is normal in size. The IVC is normal in size a nd collapses >50% with inspiration. PERICARDIAL EFFUSION There is no evidence of significant pericardial effusion. Critical Notification Critical Value: No <Conclusion> The left ventricular systolic function is moderately impaired. The Ejection Fraction is 35-40%. Transmitral Doppler flow pattern is Grade II-pseudonormal filling dynamics. ICD lead noted in RV/RA. Trace mitral regurgitation. Trace tricuspid regurgitation. The PA pressure was estimated at 23 mmHg. There is no evidence of significant pericardial effusion. Signed by : Iban Warren, Electronically Approved : 04/18/2019 13:38:33
== END | disposition home or self-care (01) ==
LOC: ECHO 12:23
PROVIDERS: ATTEND Internal Medicine Cardiovascular Disease
DX: I25.5 Ischemic cardiomyopathy (principal); I25.10 Atherosclerotic heart disease of native coronary artery without angina pectoris
CPT/HCPCS: 93306

== ENCOUNTER 2019-07-05 17:03 | Inpatient (IN) | payer OTHER ==
[~2019-07-05] VITALS: Ht 162.6 cm; Wt 95.3 kg
[~2019-07-05 17:03] MED LIST changes: -AMOX1TAB61 PO
[2019-07-05] MEDS ORDERED: ONDANSETRON PF 4 MG/2 ML VIAL. IV PRN (17:15)
[2019-07-05] MEDS: IV NORMAL SALINE 1,000ML 1,000 ML IV SCH (17:29)
[2019-07-05] MEDS ORDERED: CARVEDILOL 12.5 MG TABLET PO SCH (18:15)
[2019-07-05 18:23] VITALS: BP 127/84
[2019-07-05] MEDS: ACETAMINOPHEN 325 MG TABLET PO PRN (18:38)
[2019-07-05] MEDS ORDERED: FLU VAX QS 2019-20 (36MOS+)/PF 0.5 ML SYRINGE. VAX IM ONE (19:00)
[2019-07-05] MEDS ORDERED: ATORVASTATIN CALCIUM 20 MG TABLET PO SCH (21:00)
[2019-07-05] MEDS ORDERED: POTASSIUM CHLORIDE 20 MEQ TABLET.ER. PO SCH (21:00)
[2019-07-05] MEDS: AMOXICILLIN/K CLAV 875/125MG TABLET. PO SCH (21:03)
[2019-07-05] MEDS: SACUBITRIL/VALSARTAN 49/51MG TABLET. PO SCH (21:04)
[2019-07-05] MEDS: PRAMIPEXOLE 0.5 MG TABLET. PO SCH (21:05)
[2019-07-05] MEDS: CARVEDILOL 12.5 MG TABLET PO SCH (21:14)
--- NOTE | 2019-07-05 21:28 | RAD ---
PQRS Compliance statement: One or more of the following individualized dose reduction techniques were utilized for this examination: 1. Automated exposure control. 2. Adjustment of the mA and/or kV according to patient size. 3. Use of iterative reconstruction technique. Indication:Abdomen and lower back pain. Diarrhea. TECHNIQUE: CT abdomen and pelvis without IV contrast with multiplanar reformats. COMPARISON: None FINDINGS: Limited evaluation of solid abdominal and pelvic organs due to lack of IV contrast. Heart is normal in size. No pericardial or pleural effusion. Clear lung bases. Too low attenuating lesions in segment 4A of the liver, the largest measuring 1.6 x 1.2 cm demonstrating fluid density most likely hepatic cysts. 3.0 x 2.6 cm low attenuating lesion in the spleen. Gallbladder is decompressed without radiopaque stones. Noncontrast appearance of the pancreas, adrenals within normal limits. No nephrolithiasis or hydronephrosis. No enlarged retroperitoneal or pelvic adenopathy. No free pelvic fluid or ascites. Status post hysterectomy. No bowel obstruction. Normal appendix. Urinary bladder demonstrates no radiopaque stones. No pneumoperitoneum. No suspicious bony lesion. IMPRESSION: Limited evaluation of solid abdominal and pelvic organs due to lack of IV contrast. 1. No nephrolithiasis or hydronephrosis. 2. No bowel obstruction. 3. Indeterminate splenic lesion likely complex cyst or hemangioma. Electronically signed by: Natalio Chung DO (07/05/2019 9:25 PM) [facility]
[2019-07-06] MEDS: ACETAMINOPHEN 325 MG TABLET PO PRN (00:50)
[2019-07-06 05:37] VITALS: BP 116/75
[2019-07-06 06:17] LABS: BASO % 0 % (0-3); EOS # 0.1 x10^3/uL (0.0-0.7); EOS % 1 % (0-3); HEMATOCRIT 35.6 % (36.0-47.0); HEMOGLOBIN 11.9 g/dL (12.0-15.5); LYMPH # 1.3 x10^3/uL (1.0-4.8); LYMPH % 20 % (24-48); MEAN CORPUSCULAR HEMOGLOBIN 30 pg (25-35); MEAN CORPUSCULAR HGB CONC 33 g/dL (31-37); MEAN CORPUSCULAR VOLUME 90 fL (79-100); MONO # 0.6 x10^3/uL (0.0-1.1); MONO % 9 % (0-9); NEUT # 4.7 x10^3uL (1.8-7.7); NEUT % 70 % (31-73); PLATELET COUNT 174 x10^3/uL (140-400); RED BLOOD COUNT 3.97 x10^6/uL (3.50-5.40); RED CELL DISTRIBUTION WIDTH 14.3 % (11.5-14.5); WHITE BLOOD COUNT 6.8 x10^3/uL (4.0-11.0)
[2019-07-06 06:33] LABS: ALBUMIN 3.3 g/dL (3.4-5.0); ALBUMIN/GLOBULIN RATIO 1.1 (1.0-1.7); CALCIUM 8.1 mg/dL (8.5-10.1); CREATININE 0.9 mg/dL (0.6-1.0); GFR 66.5; POTASSIUM 3.7 mmol/L (3.5-5.1); TOTAL BILIRUBIN 0.3 mg/dL (0.2-1.0); TOTAL PROTEIN 6.4 g/dL (6.4-8.2)
[2019-07-06] MEDS: IV NORMAL SALINE 1,000ML 1,000 ML IV SCH (06:35)
[2019-07-06] MEDS ORDERED: metFORMIN 500 MG TABLET PO SCH (08:00)
[2019-07-06] MEDS: AMOXICILLIN/K CLAV 875/125MG TABLET. PO SCH (08:36)
[2019-07-06] MEDS: CARVEDILOL 12.5 MG TABLET PO SCH (08:37)
[2019-07-06] MEDS: PRAMIPEXOLE 0.5 MG TABLET. PO SCH ×2 (08:38→15:25)
[2019-07-06] MEDS: SACUBITRIL/VALSARTAN 49/51MG TABLET. PO SCH (08:38)
[2019-07-06] MEDS ORDERED: LACTOBACILLUS RHAMNOSUS GG 1 CAPSULE. PO SCH (09:00)
[2019-07-06] MEDS ORDERED: VENLAFAXINE XR 37.5 MG CAP.ER.24H. PO SCH (09:00)
[2019-07-06] MEDS ORDERED: OMEGA-3 FATTY ACIDS/FISH OIL 1,000 MG CAPSULE. PO SCH (09:00)
[2019-07-06] MEDS ORDERED: FLU VAX QS 2019-20 (36MOS+)/PF 0.5 ML SYRINGE. VAX IM ONE (09:00)
[2019-07-06] MEDS ORDERED: ASPIRIN ENTERIC COATED 81 MG TABLET.DR. PO SCH (09:00)
[2019-07-06] MEDS ORDERED: MULTIVITAMIN with MINERAL TABLET. PO SCH (09:00)
[2019-07-06] MEDS ORDERED: PRASUGREL 10 MG TABLET. PO SCH (09:00)
[2019-07-06] MEDS ORDERED: EZETIMIBE 10 MG TABLET PO SCH (09:00)
[2019-07-06 11:09] VITALS: BP 112/75
[2019-07-06 15:34] VITALS: BP 112/75
[2019-07-06] MEDS ORDERED: AMOX1TAB61 PO (15:38)
--- NOTE | 2019-07-06 16:18 | SSS ---
ADMIT DATE: 07/06/2019 HISTORY OF PRESENT ILLNESS: The patient is a 49-year-old, female patient who was admitted yesterday with a complaint of recurrent bouts of nausea, vomiting, and diarrhea. She also has headache and stuffy nose. She denied any dizziness or lightheadedness. She was investigated and her lab work initially showed a white cell count of 8700, hemoglobin 12, hematocrit 37, MCV 90, and platelet count 200,000. Her chemistry also showed that she was slightly dehydrated. She was started on IV fluid and her CT scan of the maxillofacial showed that she has maxillary sinus mucous retention and mild ethmoid sinus mucosal thickening and mild nasal septal deviation for which she was started on Augmentin [address] scan of the abdomen and pelvis without contrast showed that she has no nephrolithiasis, hydronephrosis, no bowel obstruction, no enlarged retroperitoneal or pelvic adenopathy. No free pelvic fluid or ascites. There is no pneumoperitoneum. No suspicious bony lesion. The patient continued on IV fluid, antiemetic, and she did very well. When I saw her today, she was sitting comfortably in her chair, no apparent distress. She had no further episodes of nausea, no vomiting, no diarrhea. OBJECTIVE: VITAL SIGNS: Her heart rate was 85, blood pressure was 112/75, temperature was 97.7, respiratory rate was 20, and oxygen saturation was 94%. HEAD, EYES, EARS, NOSE, AND THROAT: Normocephalic, atraumatic. NECK: Supple. HEART: Showed normal first and second heart sounds with no gallop or murmur. CHEST: Clear to auscultation. No crepitation or rhonchi. ABDOMEN: Distended, soft, nontender. NEUROLOGIC: She is awake, alert, responding appropriately. All cranial nerves intact. EXTREMITIES: She moves extremities without difficulty. She ambulates without assistance or assistive devices. LABORATORY DATA: Her lab work today showed a serum sodium 139, potassium 3.7, chloride 106, bicarbonate 24, anion gap of 9, BUN 11, creatinine 0.9, estimated GFR was 66 mL per minute. Her glucose 109, calcium was 8.1. Total bilirubin, AST, ALT, alkaline phosphatase were normal. Total protein was 6.4, albumin 3.3. Her white cell count was 6800, hemoglobin 12, hematocrit 36, MCV 90, and platelet count of 174,000 with normal manual differential. DISCHARGE MEDICATIONS: She was discharged home to continue on Augmentin 875 mg twice a day for 9 more days to be taken with food. She was discharged also on all other medication including aspirin 81 mg once a day, carvedilol 25 mg twice a day, Zetia 10 mg once a day, furosemide 20 mg once a day, metformin 1000 mg twice a day, multivitamin with mineral once a day, omega-3 fatty acid 1000 mg once a day, potassium chloride 20 mEq at bedtime, pramipexole for Mirapex 0.5 mg 3 times a day, prasugrel 10 mg daily, Crestor 40 mg at bedtime, Entresto 1 tablet twice a day and venlafaxine or Effexor 150 mg daily. AARON HAYWARD MD DR: DALIA/eliu JOB#: [id number] / [id number]
== END 2019-07-06 16:35 | disposition home or self-care (01) | DRG 392 ==
LOC: 1 SOUTH 17:03
PROVIDERS: ADMIT Internal Medicine; ATTEND Internal Medicine
DX: A08.4 Viral intestinal infection, unspecified (principal); E86.0 Dehydration; J34.2 Deviated nasal septum; Z79.899 Other long term (current) drug therapy; Z88.2 Allergy status to sulfonamides
CPT/HCPCS: 36415; 74176; 80053; 85025; 90471; 90686; J2405; J7030

== ENCOUNTER → 2019-07-05 | Outpatient (CLI) | payer OTHER ==
[~2019-07-05] MED LIST changes: +AMOX1TAB61 PO; +VENL150C PO
[2019-07-05 13:45] VITALS: BP 133/77
[2019-07-05 14:27] LABS: ALBUMIN 3.7 g/dL (3.4-5.0); ALBUMIN/GLOBULIN RATIO 1.2 (1.0-1.7); CALCIUM 8.6 mg/dL (8.5-10.1); CREATININE 1.1 mg/dL (0.6-1.0); GFR 52.8; POTASSIUM 3.8 mmol/L (3.5-5.1); TOTAL BILIRUBIN 0.4 mg/dL (0.2-1.0); TOTAL PROTEIN 6.9 g/dL (6.4-8.2)
[2019-07-05] MEDS: IV NORMAL SALINE 1,000ML 1,000 ML IV SCH (14:29)
[2019-07-05 14:30] LABS: BASO % 0 % (0-3); EOS # 0.1 x10^3/uL (0.0-0.7); EOS % 1 % (0-3); HEMATOCRIT 37.3 % (36.0-47.0); HEMOGLOBIN 12.4 g/dL (12.0-15.5); LYMPH # 1.3 x10^3/uL (1.0-4.8); LYMPH % 15 % (24-48); MEAN CORPUSCULAR HEMOGLOBIN 30 pg (25-35); MEAN CORPUSCULAR HGB CONC 33 g/dL (31-37); MEAN CORPUSCULAR VOLUME 90 fL (79-100); MONO # 0.7 x10^3/uL (0.0-1.1); MONO % 8 % (0-9); NEUT # 6.6 x10^3uL (1.8-7.7); NEUT % 76 % (31-73); PLATELET COUNT 200 x10^3/uL (140-400); RED BLOOD COUNT 4.17 x10^6/uL (3.50-5.40); RED CELL DISTRIBUTION WIDTH 14.5 % (11.5-14.5); WHITE BLOOD COUNT 8.7 x10^3/uL (4.0-11.0)
[2019-07-05] MEDS: IV NORMAL SALINE 500ML 500 ML IV ONE (14:33)
--- NOTE | 2019-07-05 15:32 | RAD ---
EXAM: Maxillofacial bone CT without contrast. HISTORY: Sinusitis. TECHNIQUE: Computed tomographic images the paranasal sinuses were obtained without contrast. *One or more of the following individualized dose reduction techniques were utilized for this examination: 1. Automated exposure control. 2. Adjustment of the mA and/or kV according to patient size. 3. Use of iterative reconstruction technique. COMPARISON: None. FINDINGS: There are bilateral maxillary sinus mucous retention cysts. There is mild ethmoid sinus mucosal thickening. The ostiomeatal units are patent. There is mild leftward nasal septal deviation. There is no sinus air-fluid level or sinus wall thickening or erosion. There is slight asymmetric pneumatization of the left greater than right mastoid, a normal variant. The orbits and visualized brain and calvarium are unremarkable. IMPRESSION: 1. Maxillary sinus mucous retention cysts and mild ethmoid sinus mucosal thickening. 2. Mild nasal septal deviation. Electronically signed by: Jennifer Armenta MD (07/05/2019 3:29 PM) [facility]
== END | disposition home or self-care (01) ==
LOC: UNDOADMOB 13:44 → ICU 13:44 → EDSTATUS 14:12 → LAB 14:13
PROVIDERS: ATTEND Internal Medicine
DX: K52.9 Noninfective gastroenteritis and colitis, unspecified (principal); E86.0 Dehydration; J34.1 Cyst and mucocele of nose and nasal sinus; Z79.899 Other long term (current) drug therapy
CPT/HCPCS: 36415; 70486; 80053; 85025; 96360; 96361; J7040; 36591; 36592; J7030

== ENCOUNTER → 2019-09-21 | Outpatient (CLI) | payer OTHER ==
[~2019-09-21] MED LIST changes: +AMOX1TAB61 PO
--- NOTE | 2019-09-22 15:50 | RAD ---
DATE: 09/21/2019 EXAM: MAMMO YARI SCREENING BILATERAL HISTORY: Routine screening COMPARISON: 09/12/2016, 10/06/2017, 09/26/2018 mammographic exams This study was interpreted with the benefit of Computerized Aided Detection (CAD). Breast Density: HETERO The breast parenchyma is heterogenously dense, which could reduce sensitivity of mammography. Breast parenchyma level C. FINDINGS: Small masses at the left lower inner breast have remained stable. These are best seen on tomosynthesis images. No suspicious calcifications or distortion. Left-sided pacemaker device is present. This obscures evaluation at the posterior left upper breast. Mass involving the posterior right upper-outer breast is stable although not fully imaged on the right cc image. It is stable and basis of the MLO image compared to prior exams. IMPRESSION: Stable BI-RADS CATEGORY: 2 BENIGN FINDING(S) RECOMMENDED FOLLOW-UP: 12M 12 MONTH FOLLOW-UP PQRS compliance statement: Patient information was entered into a reminder system with a target due date for the next mammogram. Mammography is a sensitive method for finding small breast cancers, but it does not detect them all and is not a substitute for careful clinical examination. A negative mammogram does not negate a clinically suspicious finding and should not result in delay in biopsying a clinically suspicious abnormality. "Our facility is accredited by the [employer] Mammography Program."
== END ==
LOC: MAMMO 10:06
PROVIDERS: ATTEND Family Medicine
DX: Z12.31 Encounter for screening mammogram for malignant neoplasm of breast (principal); N63.24 Unspecified lump in the left breast, lower inner quadrant; N63.11 Unspecified lump in the right breast, upper outer quadrant; I25.10 Atherosclerotic heart disease of native coronary artery without angina pectoris; Z90.710 Acquired absence of both cervix and uterus; Z95.0 Presence of cardiac pacemaker
CPT/HCPCS: 77063; 77067

== ENCOUNTER → 2020-01-20 | Outpatient (CLI) | payer OTHER | END | disposition home or self-care (01) | LOC: LAB 10:11 | PROVIDERS: ATTEND Internal Medicine Cardiovascular Disease | DX: J98.8 Other specified respiratory disorders (principal); R51 Headache; Z20.828 Contact with and (suspected) exposure to other viral communicable diseases | CPT/HCPCS: 87635 ==

== ENCOUNTER → 2020-05-08 | Outpatient (CLI) | payer OTHER | END | disposition home or self-care (01) | LOC: LAB 14:07 | PROVIDERS: ATTEND Internal Medicine Cardiovascular Disease | DX: R05 Cough (principal); R68.83 Chills (without fever); Z20.828 Contact with and (suspected) exposure to other viral communicable diseases; I50.9 Heart failure, unspecified | CPT/HCPCS: C9803; U0003; 36415 ==

== ENCOUNTER → 2020-05-16 | Outpatient (CLI) | payer OTHER ==
[2020-05-16 16:50] LABS: CALCIUM 9.3 mg/dL (8.5-10.1); CREATININE 0.9 mg/dL (0.6-1.0); GFR 66.5; MAGNESIUM 1.8 mg/dL (1.8-2.4); POTASSIUM 3.9 mmol/L (3.5-5.1)
== END | disposition home or self-care (01) ==
LOC: LAB 15:53
PROVIDERS: ATTEND Internal Medicine Cardiovascular Disease
DX: I49.9 Cardiac arrhythmia, unspecified (principal)
CPT/HCPCS: 36415; 80048; 83735; 83880

== ENCOUNTER → 2020-09-18 | Outpatient (CLI) | payer OTHER ==
[~2020-09-18] MED LIST changes: -HYDR-2163 PO; +HYDR-3068 PO
--- NOTE | 2020-09-19 09:50 | RAD ---
BILATERAL SCREENING MAMMOGRAM, 3-D History: Routine screening. Comparison: 09/21/2019, 09/26/2018, 10/06/2017. Technique: MLO and CC digital tomosynthesis (3D) images obtained. Radiologist reviewed these images on dedicated workstation. Findings: Breast Tissue Density B : There are scattered areas of fibroglandular density. There are no dominant masses, suspicious microcalcifications, or architectural distortion. Small masses far posterior right breast is stable. Left sided ICD obscures evaluation of the posterior left lower axillary region. IMPRESSION: No mammographic evidence of malignancy. Recommend routine screening. BI-RADS category 1: Negative. The images were reviewed with computer-aided detection. Patient information is entered into reminder system with a target due date for the next screening mammogram. Mammography is the most sensitive method for finding small breast cancers, but it does not detect them all and is not a substitute for careful clinical examination. A negative mammogram does not negate a clinically suspicious finding and should not result in delay in biopsying a clinically suspicious abnormality. "Our facility is accredited by the [employer] Mammography Program." Electronically signed by: Rivas Johns MD (09/19/2020 9:47 AM) [facility]
== END ==
LOC: MAMMO 09-16 07:55
PROVIDERS: ATTEND Family Medicine
DX: Z12.31 Encounter for screening mammogram for malignant neoplasm of breast (principal)
CPT/HCPCS: 77063; 77067

== ENCOUNTER → 2020-10-12 | Outpatient (CLI) | payer OTHER ==
[~2020-10-12] MED LIST changes: +AMOX500C PO; +ASPI325T11 PO; +CARV20CP PO; +DOXE50CA PO; +EMPA10TA PO; -LISI-338 PO; +LISI-517 PO; +METF500T16 PO; +OXYC-314 PO; +SPIR25TA5 PO
== END ==
LOC: LAB 12:35
PROVIDERS: ATTEND Internal Medicine Cardiovascular Disease
DX: Z20.828 Contact with and (suspected) exposure to other viral communicable diseases (principal); I25.5 Ischemic cardiomyopathy
CPT/HCPCS: U0003

== ENCOUNTER 2020-10-19 01:05 | Emergency (ER) | payer OTHER ==
[~2020-10-19] VITALS: Ht 162.6 cm; Wt 96.0 kg
[~2020-10-19 01:05] MED LIST changes: -AMOX500C PO; -ASPI325T11 PO; -CARV20CP PO; -DOXE50CA PO; -EMPA10TA PO; +LISI-338 PO; -LISI-517 PO; -METF500T16 PO; -OXYC-314 PO; -SPIR25TA5 PO
[2020-10-19 01:10] VITALS: BP 119/71
[2020-10-19] MEDS ORDERED: AMOXICILLIN 250 MG CAPSULE PO ONE (01:30)
[2020-10-19] MEDS ORDERED: oxyCODONE/APAP 5/325 1 TAB TABLET PO ONE (01:30)
[2020-10-19] MEDS ORDERED: BENZOCAINE ONE 20% MUCOSAL SPRAY. MM (01:30)
--- NOTE | 2020-10-19 01:31 | PHYS DOC ---
Past History Past Medical History: Bronchitis, CAD, High Cholesterol, Hypertension, [place], UTI Past Surgical History: Hysterectomy, Tonsillectomy Smoking: Non-smoker Alcohol Use: Occasionally Drug Use: None Adult General Chief Complaint Chief Complaint: DENTAL PROBLEM HPI HPI Patient is a 50-year-old female presents with dental pain. States she was eating Alita librazza earlier in the evening, bit down on something hard and began to have dental pain. States the pain is sharp in nature, 7 out of 10 with no radiation. States she is not exactly sure what she bit down on but it was hard. Review of Systems Review of Systems Patient endorses dental pain, otherwise unremarkable review of systems Allergies Allergies Allergies Coded Allergies Type Severity Reaction Last Updated Verified Sulfa (Sulfonamide Antibiotics) Allergy Intermediate 10/19/20 Yes Physical Exam Physical Exam Constitutional: Well developed, well nourished, no acute distress, non-toxic appearance. [] HENT: Normocephalic, atraumatic, bilateral external ears normal, oropharynx moist, no oral exudates, nose normal. Tooth #3 with what appears to be a dental carry, a small chip and irritation at the gumline [] Neck: Normal range of motion, no tenderness, supple, no stridor. [] Cardiovascular:Heart rate regular rhythm, Skin: Warm, dry, no erythema, no rash. [] Neurologic: Alert and oriented X 3, normal motor function, normal sensory function, no focal deficits noted. [] Psychologic: Affect normal, judgement normal, mood normal. [] EKG EKG [] Radiology/Procedures Radiology/Procedures [] Heart Score Risk Factors: Risk Factors: DM, Current or recent (<one month) smoker, HTN, HLP, family history of CAD, obesity. Risk Scores: Risk Factors: DM, Current or recent (<one month) smoker, HTN, HLP, family history of CAD, obesity. Course & Med Decision Making Course & Med Decision Making Patient is a 50-year-old female who presents with dental pain. Vital signs not concerning. Physical exam noted above. Topical pain medication applied with 2 x 2. Started on amoxicillin given concern for underlying infection. Patient took Aleve just before coming to the ED. Given 1 Percocet t o take home. Given patient a short course of antibiotics and a pain regimen at home including ibuprofen and Percocet to last for the next few days until she can see her dentist on Wednesday. Advised to call dentist first thing Wednesday morning. Advised to come back to the ED with new or concerning symptoms. Patient grateful, verbalized understanding and agreed with plan of discharge. [] Addendum: 2 prescriptions each of the amoxicillin and Percocet are shown in the note. The first set was transmitted incorrectly to nonprescription paper and had to be reprinted. Dragon Disclaimer Dragon Disclaimer This electronic medical record was generated, in whole or in part, using a voice recognition dictation system. Departure Departure: Condition: GOOD Referrals: RICHARDSON SALVADOR MD (PCP) Scripts Amoxicillin (AMOXICILLIN) 500 Mg Capsule 1 CAP PO BID PRN for ORAL PAIN, #13 CAP Prov: JOSE WOODWARD MD 10/19/20 Oxycodone Hcl/Acetaminophen (ENDOCET 5-325 TABLET) 1 Each Tablet 1 TAB PO PRN QID PRN for ORAL PAIN MDD 4 Tablet(s) for 3 Days, #12 TAB 0 Refills Prov: JOSE WOODWARD MD 10/19/20 Amoxicillin (AMOXICILLIN) 500 Mg Capsule 1 CAP PO BID PRN for ORAL PAIN, #13 CAP Prov: JOSE WOODWARD MD 10/19/20 Oxycodone Hcl/Acetaminophen (ENDOCET 5-325 TABLET) 1 Each Tablet 1 TAB PO PRN QID PRN for ORAL PAIN MDD 4 Tablet(s) for 3 Days, #12 TAB 0 Refills Prov: JOSE WOODWARD MD 10/19/20 JOSE WOODWARD MD Oct 19, 2020 01:30
[2020-10-19] MEDS ORDERED: OXYC-314 PO ×2 (01:36→01:53)
[2020-10-19] MEDS ORDERED: AMOX500C PO ×2 (01:44→01:54)
== END 2020-10-19 02:13 | disposition home or self-care (01) ==
LOC: ER 01:05
DX: K08.89 Other specified disorders of teeth and supporting structures (principal); E78.00 Pure hypercholesterolemia, unspecified; I25.2 Old myocardial infarction; I11.9 Hypertensive heart disease without heart failure; Z90.710 Acquired absence of both cervix and uterus; Z90.89 Acquired absence of other organs; Z88.0 Allergy status to penicillin
CPT/HCPCS: 99284

== ENCOUNTER 2020-10-24 09:18 | Emergency (ER) | payer OTHER ==
[~2020-10-24] VITALS: Ht 162.6 cm; Wt 96.0 kg
[~2020-10-24 09:18] MED LIST changes: +AMOX500C PO; +OXYC-314 PO
--- NOTE | 2020-10-24 09:43 | PHYS DOC ---
Past History Past Medical History: Angina, Bronchitis, CAD, CHF, High Cholesterol, Heart Disease, Hypertension, [place], UTI Past Surgical History: Hysterectomy, Tonsillectomy Additional Past Surgical Histo: cardiac stents, heart cath last Smoking: Non-smoker Alcohol Use: Occasionally Drug Use: None General Adult EDM: Chief Complaint: NEAR SYCOPE HPI: HPI: This is a pleasant 50-year-old female with a history of coronary artery disease and decreased ejection fraction on last echocardiogram in [address] Rojo. She had a heart catheterization on 15 October of this year. No complications. No stents placed. Today she was working and while walking she felt nauseous and reports a warm wave came over her. She walked over to her office and then felt severely lightheaded like she was going to pass out. She denies vertigo or vertiginous symptoms. She denies slurred speech or focal neurologic deficit. She is currently starting to feel better. She denies any pain prior to during or after the event. Review of systems she denied chest pain shortness of breath vomiting fevers chills. Negative for facial drooping dysphagia arm or leg weakness. All other review of systems negative. ED course: 50-year-old female presenting with lightheadedness today. EKG obtained and reviewed by myself shows an atrial paced rhythm. ST segments congruent. Not suggestive of acute ischemia. Similar to previous in February 2018. Here her work-up is unremarkable. She had an elevated D-dimer so CT angiogram was performed which was negative for pulmonary embolism. She was given IV fluids. She is feeling better on reexamination. Patient has not had any chest pain prior to during or after the event. She is not had any chest pain while in the emergency department. We will discharge her to follow-up with her PCP tomorrow. It is most likely that her blood pressure medication is causing her to feel lightheaded in which case she will need to touch base with Dr. Rojo about going down on the medication. Patient is to return if she has any worsening symptoms or is concerned for any reason. Current Medications: Current Meds: Current Medications Medications (Trade) Dose Ordered Sig/Navin Start Time Stop Time Status Last Admin Dose Admin Sodium Chloride 1,000 ml @ 1,000 mls/hr 1X ONCE 10/24/20 09:45 10/24/20 10:44 Allergies: Allergies: Allergies Coded Allergies Type Severity Reaction Last Updated Verified Sulfa (Sulfonamide Antibiotics) Allergy Intermediate 10/19/20 Yes Physical Exam: PE: Constitutional: Well developed, well nourished, no acute distress, non-toxic appearance. [] HENT: Normocephalic, atraumatic, bilateral external ears normal, oropharynx moist, no oral exudates, nose normal. [] Eyes: PERRLA, EOMI, conjunctiva normal, no discharge. [] Neck: Normal range of motion, no tenderness, supple, no stridor. [] Cardiovascular:Heart rate regular rhythm, no murmur [] Lungs & Thorax: Bilateral breath sounds clear to auscultation [] Abdomen: Bowel sounds normal, soft, no tenderness, no masses, no pulsatile masses. [] Skin: Warm, dry, no erythema, no rash. [] Back: No tenderness, no CVA tenderness. [] Extremities: No tenderness, no cyanosis, no clubbing, ROM intact, no edema. [] Neurologic: Mental status: Awake oriented and alert x3 Cranial nerves: Extraocular movements intact, eyebrows lorie bilaterally, smile symmetric, uvula elevation nl, shoulder shrug intact bilaterally, tongue protrusion normal DTRs: 2+ Sensation: equal and normal in all extremities Strength: 5/5 in upper and lower extremities bilaterally [id number] within normal limits Psychologic: Affect normal, judgement normal, mood normal. [] EKG: EKG: [] Radiology/Procedures: Radiology/Procedures: [] Heart Score: Risk Factors: Risk Factors: DM, Current or recent (<one month) smoker, HTN, HLP, family history of CAD, obesity. Risk Scores: Score 0 - 3: 2.5% MACE over next 6 weeks - Discharge Home Score 4 - 6: 20.3% MACE over next 6 weeks - Admit for Clinical Observation Score 7 - 10: 72.7% MACE over next 6 weeks - Early Invasive Strategies Course & Med Decision Making: Course & Med Decision Making Pertinent Labs and Imaging studies reviewed. (See chart for details) [] Dragon Disclaimer: Dragon Disclaimer: This electronic medical record was generated, in whole or in part, using a voice recognition dictation system. Departure Departure: Impression: Primary Impression: Light-headed feeling Disposition: 01 DC HOME SELF CARE/HOMELESS Condition: STABLE Referrals: AMADO MOLINA (PCP) CHINA CHRISTY MD Oct 24, 2020 09:43
[2020-10-24] MEDS ORDERED: IV NORMAL SALINE 1,000ML 1,000 ML IV ONE (09:45)
[2020-10-24 10:01] LABS: BASO % 1 % (0-3); EOS # 0.2 x10^3/uL (0.0-0.7); EOS % 2 % (0-3); HEMATOCRIT 38.1 % (36.0-47.0); HEMOGLOBIN 12.5 g/dL (12.0-15.5); LYMPH # 2.3 x10^3/uL (1.0-4.8); LYMPH % 34 % (24-48); MEAN CORPUSCULAR HEMOGLOBIN 30 pg (25-35); MEAN CORPUSCULAR HGB CONC 33 g/dL (31-37); MEAN CORPUSCULAR VOLUME 91 fL (79-100); MONO # 0.6 x10^3/uL (0.0-1.1); MONO % 9 % (0-9); NEUT # 3.6 x10^3uL (1.8-7.7); NEUT % 54 % (31-73); PLATELET COUNT 200 x10^3/uL (140-400); RED BLOOD COUNT 4.21 x10^6/uL (3.50-5.40); RED CELL DISTRIBUTION WIDTH 14.4 % (11.5-14.5); WHITE BLOOD COUNT 6.8 x10^3/uL (4.0-11.0)
[2020-10-24 10:09] LABS: CALCIUM 8.4 mg/dL (8.5-10.1); CREATININE 0.8 mg/dL (0.6-1.0); GFR 75.9; POTASSIUM 4.4 mmol/L (3.5-5.1)
[2020-10-24 10:10] LABS: MAGNESIUM 2.1 mg/dL (1.8-2.4)
[2020-10-24] MEDS ORDERED: IOHEXOL 350 MG/ML 100 ML VIAL. IV ONE (10:45)
[2020-10-24] MEDS ORDERED: CONTRAST GIVEN. MC PRN (10:45)
--- NOTE | 2020-10-24 11:37 | RAD ---
CTA CHEST INDICATION: presyncope Comparison: None. TECHNIQUE: Following the uneventful administration of intravenous contrast, 100 cc Isovue-370, axial CT sections were obtained through the lungs and upper abdomen. Multiplanar reconstructions and MIP im ages were obtained. PQRS compliance statement: One or more of the following individualized dose reduction techniques were utilized for this examinat ion: 1. Automated exposure control 2. Adjustment of the mA and/or kV according to patient size 3. Use of iterative reconstruction technique FINDINGS: Pulmonary arteries: No evidence of pulmonary thromboembolic disease. Lungs and Airways: No pulmonary mass or consolidation. No abnormality of the central airways. Pleura: The pleural spaces are normal. Heart and Mediastinum: The visualized thyroid is normal in size and attenuation. No axillary or supra clavicular lymphadenopathy. No mediastinal, hilar or retrocrural lymphadenopathy. Cardiomegaly. Coron tobias artery atherosclerotic disease and stents. Left pectoral pacemaker. Normal caliber thoracic aorta . Abdomen: Stable small hepatic and splenic hypodensities, probably cysts and/or hemangiomas. Bones and Soft Tissues: The visualized bones and chest wall soft tissues are within normal limits. IMPRESSION: 1. No evidence of pulmonary thromboembolic disease. 2. No pulmonary mass or consolidation. Electronically signed by: Michi Goodson MD (10/24/2020 11:35 AM) [id number]
--- NOTE | 2020-10-24 11:47 | EKG ---
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
[2020-10-24 11:57] VITALS: BP 105/58
== END 2020-10-24 12:06 | disposition home or self-care (01) ==
LOC: ER 09:18
DX: R42 Dizziness and giddiness (principal); R11.0 Nausea; I25.10 Atherosclerotic heart disease of native coronary artery without angina pectoris; I11.0 Hypertensive heart disease with heart failure; I50.9 Heart failure, unspecified; E78.00 Pure hypercholesterolemia, unspecified; I25.2 Old myocardial infarction; Z87.440 Personal history of urinary (tract) infections; Z88.2 Allergy status to sulfonamides
CPT/HCPCS: 36415; 71275; 80048; 83735; 84484; 85025; 85379; 93005; 96360; 99285; J7030; Q9967

== ENCOUNTER → 2020-11-04 | Outpatient (CLI) | payer OTHER ==
[2020-10-24 11:57] VITALS: BP 105/58
[2020-11-04 12:23] LABS: CALCIUM 8.6 mg/dL (8.5-10.1); CREATININE 0.8 mg/dL (0.6-1.0); GFR 75.9
== END ==
LOC: LAB 11:24
PROVIDERS: ATTEND Internal Medicine Cardiovascular Disease
DX: I25.5 Ischemic cardiomyopathy (principal)
CPT/HCPCS: 36415; 80048; 83880

== ENCOUNTER 2021-01-26 23:20 | Emergency (ER) | payer OTHER ==
[~2021-01-26] VITALS: Ht 162.6 cm; Wt 96.0 kg
[~2021-01-26 23:20] MED LIST changes: +DOXEPIN HCL 25 MG CAPSULE PO SCH; -LISI-338 PO; +LISI-517 PO
--- NOTE | 2021-01-26 23:23 | PHYS DOC ---
Past History Past Medical History: Angina, CAD, CHF, High Cholesterol, Heart Disease, Hypertension, [place] Past Surgical History: Hysterectomy, Tonsillectomy Additional Past Surgical Histo: cardiac stents, heart cath last Smoking: Non-smoker Alcohol Use: Occasionally Drug Use: None General Adult HPI: HPI: ".. I am having some elizabeth of allergic reaction to something... It started on Wednesday.. I went to Urgent care.. ..They gave a shot of steroids.. and I am taking Prednisone .. and some benadryl... 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 Patient states symptoms started on Wednesday. That have been persistent to the weekend. Patient was follow-up in urgent care upstairs and did receive an IM injection of steroids. Does not know dosage or type of steroid. Patient does have a history of seasonal allergies. Patient denies any new meds, soaps, detergents, personal hygiene products or other exposures. Patient has generalized erythema and swelling particularly in the periorbital areas. Patient has past medical history of significant elevated cholesterol levels and coronary artery disease. Review of Systems: Review of Systems: Constitutional: Denies fever or chills Eyes: Denies change in visual acuity HENT: Complains of nasal congestion Respiratory: Complaints of some wheezing Cardiovascular: Denies chest pain or edema GI: Denies abdominal pain, nausea, vomiting, bloody stools or diarrhea : Denies dysuria Musculoskeletal: Denies back pain or joint pain Integument: Complains of generalized body rash but more localized to face and upper neck. Neurologic: Denies headache, focal weakness or sensory changes Endocrine: Denies polyuria or polydipsia Lymphatic: Denies swollen glands Psychiatric: Denies depression or anxiety Family History: Family History: Noncontributory to presentation Current Medications: Current Meds: See nursing for home meds Allergies: Allergies: Allergies Coded Allergies Type Severity Reaction Last Updated Verified Sulfa (Sulfonamide Antibiotics) Allergy Intermediate 10/19/20 Yes Physical Exam: PE: Constitutional: in acute distress, non-toxic appearance. [] HENT: Normocephalic, atraumatic, bilateral external ears normal, oropharynx moist, no oral exudates, nose swollen turbinates and clear rhinorrhea. Facial edema and erythema Eyes: PERRLA, EOMI, conjunctiva normal, no discharge. [] Neck: Normal range of motion, no tenderness, supple, no stridor. [] Cardiovascular:Heart rate regular rhythm, no murmur [] Lungs & Thorax: Bilateral breath sounds equal apex few scattered wheezes on auscultation [] Abdomen: Bowel sounds normal, soft, no tenderness, no masses, no pulsatile masses. [] Skin: Warm, dry, no erythema, diffuse hive-like rash [] Back: No tenderness, no CVA tenderness. [] Extremities: No tenderness, no cyanosis, no clubbing, ROM intact, no edema. [] Neurologic: Alert and oriented X 3, normal motor function, normal sensory function, no focal deficits noted. [] Psychologic: Affect anxious, judgement normal, mood normal. [] EKG: EKG: [] Radiology/Procedures: Radiology/Procedures: [] Heart Score: C/O Chest Pain: N/A Risk Factors: Risk Factors: DM, Current or recent (<one month) smoker, HTN, HLP, family history of CAD, obesity. Risk Scores: Score 0 - 3: 2.5% MACE over next 6 weeks - Discharge Home Score 4 - 6: 20.3% MACE over next 6 weeks - Admit for Clinical Observation Score 7 - 10: 72.7% MACE over next 6 weeks - Early Invasive Strategies Course & Med Decision Making: Course & Med Decision Making Pertinent Labs and Imaging studies reviewed. (See chart for details) Patient to try to determine etiology of allergic reaction. Patient continue her prednisone 50 mg a day. Patient had Pepcid 20 mg twice a day. May continue Benadryl 25 to 50 mg up to 4 times a day. However may give a trial with doxepin 25 to 50 mg 4 times a day for itching. Patient use MDI 2 puffs 4 times a day. Patient return if any concerns. Follow-up primary care. Did have some improvement of symptoms while in the emergency department with treatments given. Reaction may be delayed drug reaction to meds given in heart cath on . Impression: 1. Allergic reaction etiology unclear [] Brandon Disclaimer: Brandon Disclaimer: This electronic medical record was generated, in whole or in part, using a voice recognition dictation system. Departure Departure: Scripts Doxepin Hcl (DOXEPIN HCL) 50 Mg Capsule 25 MG PO QID for allergic rx, #30 CAP Prov: AKBAR DUPREE MD 01/26/21 Brandon Disclaimer This chart was dictated in whole or in part using Voice Recognition software in a busy, high-work load, and often noisy Emergency Department environment. It may contain unintended and wholly unrecognized errors or omissions. AKBAR DUPREE MD Jan 26, 2021 23:23
[2021-01-26] MEDS ORDERED: DOXE50CA PO (23:52)
[2021-01-27] MEDS ORDERED: ALBUTEROL SULFATE 2.5 MG/3 ML NEBU. NEB ONE
[2021-01-27] MEDS ORDERED: ALBUTEROL SULFATE 8GM INHALER. INH ONE
[2021-01-27] MEDS ORDERED: FAMOTIDINE 20 MG/2 ML VIAL IVP ONE
[2021-01-27] MEDS ORDERED: methylPREDNISolone SOD SUCC PF 125 MG/2 ML VIAL. IV ONE
[2021-01-27] MEDS ORDERED: EMPA10TA PO (01:21)
[2021-01-27] MEDS ORDERED: SPIR25TA5 PO (01:21)
[2021-01-27] MEDS ORDERED: CARV20CP PO (01:21)
[2021-01-27] MEDS ORDERED: SERT25TA PO (01:21)
[2021-01-27] MEDS ORDERED: ASPI325T11 PO (01:21)
[2021-01-27] MEDS ORDERED: METF500T16 PO (01:21)
[2021-01-27 01:30] VITALS: BP 117/70
== END 2021-01-27 01:30 | disposition home or self-care (01) ==
LOC: ER 23:20
DX: T78.40XA Allergy, unspecified, initial encounter (principal); E78.00 Pure hypercholesterolemia, unspecified; I11.0 Hypertensive heart disease with heart failure; I50.9 Heart failure, unspecified; I25.10 Atherosclerotic heart disease of native coronary artery without angina pectoris; I25.2 Old myocardial infarction; Z95.5 Presence of coronary angioplasty implant and graft; Z88.2 Allergy status to sulfonamides
CPT/HCPCS: 94640; 96374; 96375; 99284; J2930; J3490; J7613; 94664

== ENCOUNTER 2021-03-28 17:20 | Emergency (ER) | payer OTHER ==
[~2021-03-28] VITALS: Ht 162.6 cm; Wt 96.0 kg
[~2021-03-28 17:20] MED LIST changes: +ASPI325T11 PO; +CARV20CP PO; +DOXE50CA PO; -DOXEPIN HCL 25 MG CAPSULE PO SCH; +EMPA10TA PO; +METF500T16 PO; +SPIR25TA5 PO
--- NOTE | 2021-03-28 17:47 | RAD ---
Exam: Chest one view INDICATION: Defibrillator problem TECHNIQUE: Frontal view of the chest Comparisons: None FINDINGS: Left chest wall pacer appears unchanged. Heart is mildly enlarged. Pulmonary vessels are within normal limits. The lung and pleural spaces are clear. IMPRESSION: No acute pulmonary process. Electronically signed by: Jourdan Arana MD (03/28/2021 5:45 PM) [facility]
--- NOTE | 2021-03-28 17:54 | PHYS DOC ---
Past History Past Medical History: Angina, CAD, CHF, High Cholesterol, Heart Disease, Hypertension, [place] Past Surgical History: Angioplasty, Hysterectomy, Tonsillectomy Additional Past Surgical Histo: cardiac stents, heart cath last Smoking: Non-smoker Alcohol Use: Occasionally Drug Use: None General Adult HPI: HPI: Patient is a 50-year-old female coming in after her defibrillator went off 3 hours prior to arrival. Patient states she had been walking around the house doing some housework and has also been out in the heat. Patient states she suddenly felt very lightheaded and then a "thump" from her defibrillator. Has had defibrillator since 2009 and has never gone off before. Patient states she has had runs of V. tach but the defibrillator is set to go off if her heart rate exceeds 180 bpm. Patient states prior to that she had felt well. Is taking Effient and aspirin. Is status post CA and resulting ischemic cardiomyopathy. Patient states that she has a [place] pacemaker and defibrillator. And at her last checkup she had 1.5 years of battery life left. Review of Systems: Review of Systems: All other systems within normal limits except for as noted in the HPI Allergies: Allergies: Allergies Coded Allergies Type Severity Reaction Last Updated Verified Sulfa (Sulfonamide Antibiotics) Allergy Intermediate 10/19/20 Yes Physical Exam: PE: Constitutional: Well developed, well nourished, no acute distress, non-toxic appearance. [] HENT: Normocephalic, atraumatic, bilateral external ears normal, oropharynx moist, no oral exudates, nose normal. [] Eyes: PERRLA, EOMI, conjunctiva normal, no discharge. [] Neck: Normal range of motion, no tenderness, supple, no stridor. [] Cardiovascular:Heart rate regular rhythm, no murmur [] Lungs & Thorax: Bilateral breath sounds clear to auscultation [] Abdomen: Bowel sounds normal, soft, no tenderness, no masses, no pulsatile masses. [] Skin: Warm, dry, no erythema, no rash. [] Back: No tenderness, no CVA tenderness. [] Extremities: No tenderness, no cyanosis, no clubbing, ROM intact, no edema. [] Neurologic: Alert and oriented X 3, normal motor function, normal sensory function, no focal deficits noted. [] Psychologic: Affect normal, judgement normal, mood normal. [] EKG: EKG: Sinus rhythm, heart rate 80 bpm, left axis deviation, no ST elevation depression, no ectopy. No change when compared to ECG dated 10-24-20 [] Radiology/Procedures: Radiology/Procedures: [address] [id number] IMAGING REPORT Signed PATIENT: AMADO MORA ACCOUNT: [id number] : 1970 LOCATION: ER AGE: 50 SEX: F EXAM STATUS: REG ER ORD. PHYSICIAN: LILIAM GARDUNO MD REASON: defibrillator problem PROCEDURE: CHEST AP ONLY Exam: Chest one view INDICATION: Defibrillator problem TECHNIQUE: Frontal view of the chest Comparisons: None FINDINGS: Left chest wall pacer appears unchanged. Heart is mildly enlarged. Pulmonary vessels are within normal limits. The lung and pleural spaces are clear. IMPRESSION: No acute pulmonary process. Electronically signed by: Jourdan Lane MD (03/28/2021 5:45 PM) [facility] DICTATED AND SIGNED BY: JOURDAN LANE MD DATE: 03/28/21 1739 CC: LILIAM GARDUNO MD; TJ ROJO MD ~MTH0 0 [] Heart Score: C/O Chest Pain: No HEART Score for Chest Pain: HEART Score for Chest Pain Response (Comments) Value History Slighlty/Non-Suspicious 0 Age >45 - < 65 1 Risk Factors >3 Risk Factors or Hx CAD 2 Total 3 Risk Factors: Risk Factors: DM, Current or recent (<one month) smoker, HTN, HLP, family history of CAD, obesity. Risk Scores: Score 0 - 3: 2.5% MACE over next 6 weeks - Discharge Home Score 4 - 6: 20.3% MACE over next 6 weeks - Admit for Clinical Observation Score 7 - 10: 72.7% MACE over next 6 weeks - Early Invasive Strategies Course & Med Decision Making: Course & Med Decision Making Patient's doctorate of chiropractic Dr. Rojo called the emergency department to give a report on the patient. He states that as long as labs interrogation are normal patient is safe to go home and follow-up with him in clinic. Discussed with [employer] sales representative Kana Mendosa, after interrogation of the AICD it appears she went into a run of V. fib with a peak rate of 279 bpm causing the defibrillator to cough. Otherwise she says is in good working order and has 4 years life left. Dragon Disclaimer: Dragon Disclaimer: This electronic medical record was generated, in whole or in part, using a voice recognition dictation system. Departure Departure: Impression: Primary Impression: Encounter for interrogation of cardiac defibrillator Disposition: HOME / SELF CARE / HOMELESS Condition: STABLE Referrals: TJ ROJO MD (PCP) Patient Instructions: Implantable Cardioverter Defibrillator Additional Instructions: Follow-up with your doctorate of chiropractic, return to emergency department if symptoms re cur. LILIAM GARDUNO MD Mar 28, 2021 17:54
[2021-03-28 17:59] VITALS: BP 114/75
[2021-03-28 18:02] LABS: BASO % 1 % (0-3); EOS # 0.1 x10^3/uL (0.0-0.7); EOS % 1 % (0-3); HEMATOCRIT 38.4 % (36.0-47.0); HEMOGLOBIN 12.7 g/dL (12.0-15.5); LYMPH # 1.8 x10^3/uL (1.0-4.8); LYMPH % 21 % (24-48); MEAN CORPUSCULAR HEMOGLOBIN 31 pg (25-35); MEAN CORPUSCULAR HGB CONC 33 g/dL (31-37); MEAN CORPUSCULAR VOLUME 92 fL (79-100); MONO # 0.7 x10^3/uL (0.0-1.1); MONO % 7 % (0-9); NEUT # 6.2 x10^3uL (1.8-7.7); NEUT % 70 % (31-73); PLATELET COUNT 283 x10^3/uL (140-400); RED BLOOD COUNT 4.17 x10^6/uL (3.50-5.40); RED CELL DISTRIBUTION WIDTH 14.6 % (11.5-14.5); WHITE BLOOD COUNT 8.8 x10^3/uL (4.0-11.0)
[2021-03-28 18:10] LABS: CALCIUM 8.7 mg/dL (8.5-10.1); CREATININE 1.1 mg/dL (0.6-1.0); GFR 52.6; POTASSIUM 3.8 mmol/L (3.5-5.1)
[2021-03-28 18:22] LABS: ALBUMIN 3.8 g/dL (3.4-5.0); ALBUMIN/GLOBULIN RATIO 1.1 (1.0-1.7); MAGNESIUM 1.6 mg/dL (1.8-2.4); PHOSPHORUS 2.8 mg/dL (2.6-4.7); TOTAL BILIRUBIN 0.4 mg/dL (0.2-1.0); TOTAL PROTEIN 7.2 g/dL (6.4-8.2)
--- NOTE | 2021-03-28 20:20 | EKG ---
[address] [address] Test Date: 2021-03-28 Test Time: 17:48:06 Pat Name: AMADO MORA Department: Room: Gender: F Voice Over Announcer: STIVEN : 1970 Requested By: LILIAM GARDUNO Order Number: [id number] Reading MD: Measurements Intervals [place] Rate: 92 P: 47 WI: 144 QRS: -31 QRSD: 94 T: 77 QT: 358 QTc: 448 Interpretive Statements SINUS RHYTHM ABNORMAL LEFT AXIS DEVIATION LEFT ANTERIOR FASCICULAR BLOCK QRS(T) CONTOUR ABNORMALITY CONSISTENT WITH ANTEROSEPTAL INFARCT AGE UNDETERMINED T ABNORMALITY IN HIGH LATERAL LEADS ABNORMAL ECG RI6.02 No previous ECG available for comparison
== END 2021-03-28 19:44 | disposition home or self-care (01) ==
LOC: ER 17:20
DX: R42 Dizziness and giddiness (principal); I11.0 Hypertensive heart disease with heart failure; I50.9 Heart failure, unspecified; I25.2 Old myocardial infarction; Z90.710 Acquired absence of both cervix and uterus; Z45.02 Encounter for adjustment and management of automatic implantable cardiac defibrillator; Z88.2 Allergy status to sulfonamides
CPT/HCPCS: 36415; 71045; 80053; 83735; 83880; 84100; 84484; 85025; 93005; 99285-25

== ENCOUNTER 2021-04-01 15:20 | Inpatient (IN) | payer OTHER ==
[~2021-04-01] VITALS: Ht 162.6 cm; Wt 105.5 kg
[2021-04-01] MEDS ORDERED: IV NORMAL SALINE 1,000ML 1,000 ML IV ONE (15:45)
[2021-04-01 16:08] LABS: BASO # 0.1 x10^3/uL (0.0-0.2); BASO % 1 % (0-3); EOS # 0.2 x10^3/uL (0.0-0.7); EOS % 3 % (0-3); HEMATOCRIT 37.1 % (36.0-47.0); HEMOGLOBIN 12.4 g/dL (12.0-15.5); LYMPH # 2.3 x10^3/uL (1.0-4.8); LYMPH % 27 % (24-48); MEAN CORPUSCULAR HEMOGLOBIN 31 pg (25-35); MEAN CORPUSCULAR HGB CONC 34 g/dL (31-37); MEAN CORPUSCULAR VOLUME 92 fL (79-100); MONO # 0.8 x10^3/uL (0.0-1.1); MONO % 9 % (0-9); NEUT # 5.2 x10^3uL (1.8-7.7); NEUT % 61 % (31-73); PLATELET COUNT 267 x10^3/uL (140-400); RED BLOOD COUNT 4.02 x10^6/uL (3.50-5.40); RED CELL DISTRIBUTION WIDTH 14.9 % (11.5-14.5); WHITE BLOOD COUNT 8.5 x10^3/uL (4.0-11.0)
--- NOTE | 2021-04-01 16:14 | RAD ---
INDICATION: Reason: CHEST PAIN / Spl. Instructions: [place] 2008, DEFIB 2009 / History: COMPARISON: March 28, 2021 FINDINGS: Single view of chest obtained. Hypoexpanded exam. AICD is seen. Cardiac silhouette prominent in size but similar to prior. Left lung base is obscured by the cardiac silhouette. No definite consolidation in visualized portions of the lungs. IMPRESSION: * Left lung base is obscured by the overlying cardiac silhouette but no definite consolidation elsew here in the lungs. Electronically signed by: Edward Siddiqi MD (04/01/2021 4:12 PM) [id number]
--- NOTE | 2021-04-01 16:22 | PHYS DOC ---
Past History Past Medical History: Angina, CAD, CHF, High Cholesterol, Heart Disease, Hypertension, [place] Past Surgical History: Angioplasty, Hysterectomy, Tonsillectomy Additional Past Surgical Histo: cardiac stents, heart cath October 2020 Smoking: Non-smoker Alcohol Use: Occasionally Drug Use: None General Adult EDM: Chief Complaint: CHEST PAIN HPI: HPI: 50-year-old female presents with report of sudden chest discomfort and palpitations which occurred while patient was driving. Patient does have a history of a AICD which defibrillated 4 days ago. Patient had subsequently evaluated and started on amiodarone. 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 Denies any fever or chills. Denies trauma. Denies leg swelling or calf tenderness. Denies pleuritic pain. Patient reports concerned she might of become very anxious given her history of the defibrillator discharging, patient was concerned she might have subsequent shock. Patient has history of CAD with stent placement, hypertension, and high cholesterol. Denies history of PE/DVT. Review of Systems: Review of Systems: Constitutional: Denies fever or chills Eyes: Denies redness or eye pain HENT: Denies nasal congestion or sore throat Respiratory: Denies cough or shortness of breath Cardiovascular: Reports chest pain and palpitations GI: Denies abdominal pain, nausea, or vomiting : Denies dysuria or hematuria Musculoskeletal: Denies back pain or joint pain Integument: Denies rash or skin lesions Neurologic: Denies headache, focal weakness or sensory changes; reports dizziness Complete systems were reviewed and found to be within normal limits, except as documented in this note. Current Medications: Current Meds: Current Medications Medications (Trade) Dose Ordered Sig/Navin Start Time Stop Time Status Last Admin Dose Admin Lorazepam (Ativan Inj) 0.5 mg 1X ONCE 04/01/21 15:45 04/01/21 15:46 DC 04/01/21 15:49 0.5 MG Sodium Chloride 1,000 ml @ 1,000 mls/hr 1X ONCE 04/01/21 15:45 04/01/21 15:46 DC Allergies: Allergies: Allergies Coded Allergies Type Severity Reaction Last Updated Verified Sulfa (Sulfonamide Antibiotics) Allergy Intermediate 04/01/21 Yes spironolactone Allergy Unknown 04/01/21 Yes Physical Exam: PE: Constitutional: Well developed, well nourished, tearful, non-toxic appearance HENT: Normocephalic, atraumatic Eyes: Conjunctiva normal, no discharge Neck: Normal range of motion, no tenderness, supple Lungs & Thorax: No respiratory distress, equal chest rise and fall Abdomen: Soft, no tenderness Skin: Warm, dry, no erythema, no rash Extremities: No tenderness, ROM intact, no edema Neurologic: Alert and oriented X 3, no focal deficits noted Psychologic: Affect anxious, judgment normal Current Patient Data: Labs: Laboratory Tests Test 04/01/21 15:47 White Blood Count 8.5 x10^3/uL (4.0-11.0) Red Blood Count 4.02 x10^6/uL (3.50-5.40) Hemoglobin 12.4 g/dL (12.0-15.5) Hematocrit 37.1 % (36.0-47.0) Mean Corpuscular Volume 92 fL (79-100) Mean Corpuscular Hemoglobin 31 pg (25-35) Mean Corpuscular Hemoglobin Concent 34 g/dL (31-37) Red Cell Distribution Width 14.9 % (11.5-14.5) H Platelet Count 267 x10^3/uL (140-400) Neutrophils (%) (Auto) 61 % (31-73) Lymphocytes (%) (Auto) 27 % (24-48) Monocytes (%) (Auto) 9 % (0-9) Eosinophils (%) (Auto) 3 % (0-3) Basophils (%) (Auto) 1 % (0-3) Neutrophils # (Auto) 5.2 x10^3uL (1.8-7.7) Lymphocytes # (Auto) 2.3 x10^3/uL (1.0-4.8) Monocytes # (Auto) 0.8 x10^3/uL (0.0-1.1) Eosinophils # (Auto) 0.2 x10^3/uL (0.0-0.7) Basophils # (Auto) 0.1 x10^3/uL (0.0-0.2) Vital Signs: Vital Signs Date Time Temp Pulse Resp B/P (MAP) Pulse Ox O2 Delivery O2 Flow Rate FiO2 04/01/21 15:25 98.1 88 16 124/79 (94) 100 Room Air EKG: EKG: @1523 NSR at 98bpm, NO ST elevation, QRS 92ms, QT/QTc 360/462ms, LAFB, nonspecific t wave inversion aVL @1617 NSR at 85bpm, NO ST elevation, QRS 90ms, QT/QTc 370/446ms, LAFB, nonspecific t wave inversion aVL Radiology/Procedures: Radiology/Procedures: PROCEDURE: PORTABLE CHEST 1V INDICATION: Reason: CHEST PAIN / Spl. Instructions: [place] 2008, DEFIB 2009 / History: COMPARISON: March 28, 2021 FINDINGS: Single view of chest obtained. Hypoexpanded exam. AICD is seen. Cardiac silhouette prominent in size but similar to prior. Left lung base is obscured by the cardiac silhouette. No definite consolidation in visualized portions of the lungs. IMPRESSION: * Left lung base is obscured by the overlying cardiac silhouette but no definite consolidation elsewhere in the lungs. Electronically signed by: Edward Siddiqi MD (04/01/2021 4:12 PM) [id number] Heart Score: C/O Chest Pain: Yes HEART Score for Chest Pain: HEART Score for Chest Pain Response (Comments) Value History Moderately Suspicious 1 ECG Normal 0 Age >45 - < 65 1 Risk Factors >3 Risk Factors or Hx CAD 2 Troponin < Normal Limit 0 Total 4 Risk Factors: Risk Factors: DM, Current or recent (<one month) smoker, HTN, HLP, family history of CAD, obesity. Risk Scores: Score 0 - 3: 2.5% MACE over next 6 weeks - Discharge Home Score 4 - 6: 20.3% MACE over next 6 weeks - Admit for Clinical Observation Score 7 - 10: 72.7% MACE over next 6 weeks - Early Invasive Strategies Course & Med Decision Making: Course & Med Decision Making Pertinent Labs and Imaging studies reviewed. (See chart for details) Patient presents with some chest discomfort and palpitations. Significant cardiac risk factors. History of prior discharge of defibrillator recently. Cannot fully exclude cardiac etiology although anxiety is also likely. EKG stable. Labs obtained and posted to chart. Troponin within normal limits. Hypomagnesemia addressed. Discussed case with Dr. Ivy (cardiology) with recommendation for observation admission. HEART score 4 Patient requiring admission for further evaluation and treatment. Discussed with Dr. Batista (hospitalist) who is in agreement with admission. Discussed findings and plan with patient and family, who acknowledge understanding and agreement. [place] Disclaimer: Dragon Disclaimer: This electronic medical record was generated, in whole or in part, using a voice recognition dictation system. Departure Departure: Impression: Primary Impression: Chest pain Qualified Codes: R07.9 - Chest pain, unspecified Additional Impressions: Hypomagnesemia Anxiety Disposition: ADMITTED INPATIENT (observation) Admitting Physician: Promise Batista Condition: STABLE Referrals: TJ FISCHER MD (PCP) MARA SMITH DO Apr 01, 2021 16:21
[2021-04-01 16:54] LABS: BILIRUBIN,URINE NEG (NEG); CLARITY,URINE CLEAR; COLOR,URINE YELLOW; GLUCOSE,URINE 500 mg/dL (NEG); NITRITE,URINE NEG (NEG); UROBILINOGEN,URINE 0.2 mg/dL (0.2 mg/dL)
[2021-04-01 16:57] LABS: BACTERIA,URINE 0 /HPF (0-FEW); SQUAMOUS EPITHELIAL CELL,UR OCC /LPF; WBC,URINE OCC /HPF (0-4)
[2021-04-01 17:41] LABS: ALBUMIN 3.6 g/dL (3.4-5.0); ALBUMIN/GLOBULIN RATIO 1.1 (1.0-1.7); CALCIUM 8.7 mg/dL (8.5-10.1); CREATININE 0.9 mg/dL (0.6-1.0); GFR 66.3; MAGNESIUM 1.6 mg/dL (1.8-2.4); POTASSIUM 4.1 mmol/L (3.5-5.1); TOTAL BILIRUBIN 0.3 mg/dL (0.2-1.0); TOTAL PROTEIN 6.8 g/dL (6.4-8.2)
[2021-04-01] MEDS ORDERED: MAGNESIUM CHLORIDE ER 64 MG TABLET.ER PO ONE (18:30)
[2021-04-01] MEDS ORDERED: ONDANSETRON PF 4 MG/2 ML VIAL. IVP PRN (18:45)
[2021-04-01 20:10] VITALS: BP 141/85
[2021-04-01] MEDS ORDERED: AMIO400T5 PO (20:41)
[2021-04-01] MEDS ORDERED: DESO60CR13 TP (20:41)
[2021-04-01] MEDS ORDERED: TOPI50TA8 PO (20:41)
[2021-04-01] MEDS ORDERED: DIPH25CA58 PO (20:41)
[2021-04-01] MEDS ORDERED: FUROSEMIDE 20 MG TABLET PO PRN (20:45)
[2021-04-01] MEDS ORDERED: oxyCODONE/APAP 5/325 1 TAB TABLET PO PRN (20:45)
[2021-04-01] MEDS ORDERED: POTASSIUM CHLORIDE 20 MEQ TABLET.ER. PO PRN (21:15)
[2021-04-01] MEDS ORDERED: BETAMETHASONE DP AUGMENTED 0.05% 15gm CREAM TUBE. TP PRN (21:30)
[2021-04-01] MEDS: diphenhydrAMINE HCL 25 MG CAPSULE PO PRN (21:50)
[2021-04-01] MEDS: metFORMIN 500 MG TABLET PO SCH (21:50)
[2021-04-01] MEDS: ATORVASTATIN CALCIUM 20 MG TABLET PO SCH (21:50)
[2021-04-01] MEDS: DOXEPIN HCL 25 MG CAPSULE PO SCH (21:51)
[2021-04-01] MEDS: CARVEDILOL 12.5 MG TABLET PO SCH (21:51)
[2021-04-01] MEDS: PRAMIPEXOLE 0.5 MG TABLET. PO SCH (21:52)
[2021-04-01] MEDS: SACUBITRIL/VALSARTAN 49/51MG TABLET. PO SCH (21:52)
[2021-04-01 22:10] VITALS: BP 121/78
[2021-04-02 05:50] VITALS: BP 123/86
[2021-04-02 06:16] LABS: BASO % 1 % (0-3); EOS # 0.2 x10^3/uL (0.0-0.7); EOS % 3 % (0-3); HEMOGLOBIN 11.8 g/dL (12.0-15.5); LYMPH # 1.7 x10^3/uL (1.0-4.8); LYMPH % 23 % (24-48); MEAN CORPUSCULAR HEMOGLOBIN 31 pg (25-35); MEAN CORPUSCULAR HGB CONC 34 g/dL (31-37); MEAN CORPUSCULAR VOLUME 92 fL (79-100); MONO # 0.6 x10^3/uL (0.0-1.1); MONO % 8 % (0-9); NEUT # 4.8 x10^3uL (1.8-7.7); NEUT % 66 % (31-73); PLATELET COUNT 250 x10^3/uL (140-400); RED CELL DISTRIBUTION WIDTH 14.9 % (11.5-14.5); WHITE BLOOD COUNT 7.3 x10^3/uL (4.0-11.0)
[2021-04-02 06:36] LABS: ALBUMIN 3.2 g/dL (3.4-5.0); ALBUMIN/GLOBULIN RATIO 1.1 (1.0-1.7); CALCIUM 8.1 mg/dL (8.5-10.1); GFR 58.7; MAGNESIUM 1.7 mg/dL (1.8-2.4); POTASSIUM 4.2 mmol/L (3.5-5.1); TOTAL BILIRUBIN 0.3 mg/dL (0.2-1.0); TOTAL PROTEIN 6.1 g/dL (6.4-8.2)
[2021-04-02] MEDS: SACUBITRIL/VALSARTAN 49/51MG TABLET. PO SCH ×2 (08:42→20:41)
[2021-04-02] MEDS: metFORMIN 500 MG TABLET PO SCH ×3 (08:43→20:41)
[2021-04-02] MEDS: SERTRALINE 25 MG TABLET. PO SCH (08:43)
[2021-04-02] MEDS: EMPAGLIFLOZIN 10 MG TABLET. PO SCH (08:43)
[2021-04-02] MEDS: ASPIRIN ENTERIC COATED 325 MG TABLET.DR. PO SCH (08:43)
[2021-04-02] MEDS: CARVEDILOL 12.5 MG TABLET PO SCH ×2 (08:43→20:41)
[2021-04-02] MEDS: MULTIVITAMIN with MINERAL TABLET. PO SCH (08:43)
[2021-04-02] MEDS: TOPIRAMATE 25 MG TABLET. PO SCH (08:44)
[2021-04-02] MEDS: PRASUGREL 10 MG TABLET. PO SCH (08:44)
[2021-04-02] MEDS: OMEGA-3 FATTY ACIDS/FISH OIL 1,000 MG CAPSULE. PO SCH (08:44)
[2021-04-02] MEDS: DOXEPIN HCL 25 MG CAPSULE PO SCH ×5 (08:44→20:40)
[2021-04-02] MEDS: AMIODARONE HCL 200 MG TABLET. PO SCH (08:44)
[2021-04-02] MEDS: PRAMIPEXOLE 0.5 MG TABLET. PO SCH ×3 (08:45→20:41)
--- NOTE | 2021-04-02 09:07 | PDOC2 ---
CARDIAC CONSULT DATE OF CONSULT DOS: DATE: 04/02/21 TIME: 08:54 REASON FOR CONSULT Reason for Consult Chest pain REFERRING PHYSICIAN Referring Physician Dr. Baker SOURCE Source: Chart review, Patient HPI History of Present Illness This is a 50 yo female who presented secondary to chest pain. Patient was seen in ED on 03/28/21 due to defibrillator discharge. Device interrogation showed initial VT that converts to VFIB. Lasting 16 seconds. Amiodarone was initiated and she was discharged home from ED. Unfortunately, her pharmacy did not have Amiodarone in stock so she was not able to get filled. Reports that she has been feeling well since ED visit. Yesterday, went out to lunch with family. While driving home, began felling lightheaded and having palpitations again. Was slightly short of breath. Family was concerned so they had her go to the ED for further evaluation and treatment. Denies any shock from AICD. Symptoms had resolved prior to arrival to ED. PAST MEDICAL HISTORY Past Medical History hypertension, hyperlipidemia, GERD, viral meningitis, coronary artery disease, status post myocardial infarction x 2 with PCI and stents x3. chronic systolic heart failure, EF most recently 35-40% in March of this year. AICD placement with [employer]. PAST SURGICAL HISTORY Past Surgical History left heart catheterization, PCI with stent deployment x 3, total abdominal hysterectomy. FAMILY HISTORY Family History: Hypertension SOCIAL HISTORY Social History non smoker, no significant ETOH, no illicit drugs, lives at home with family CURRENT MEDICATIONS Current Medications Current Medications Sodium Chloride 1,000 ml @ 1,000 mls/hr 1X ONCE IV ; Start 04/01/21 at 15:45; Stop 04/01/21 at 15:46; Status DC Lorazepam (Ativan Inj) 0.5 mg 1X ONCE IVP Last administered on 04/01/21at 15:49; Start 04/01/21 at 15:45; Stop 04/01/21 at 15:46; Status DC Magnesium Chloride (Mag Delay) 64 mg 1X ONCE PO Last administered on 04/01/21at 18:58; Start 04/01/21 at 18:30; Stop 04/01/21 at 18:31; Status DC Ondansetron HCl (Zofran) 4 mg PRN Q4HRS PRN IVP NAUSEA/VOMITING; Start 04/01/21 at 18:45; Stop 04/02/21 at 18:44 Lorazepam (Ativan Inj) 0.5 mg PRN Q4HRS PRN IVP ANXIETY / AGITATION Last administered on 04/01/21 21:51; Start 04/01/21 at 18:45; Stop 04/02/21 at 18:44 Aspirin (Aspirin Enteric Coated) 325 mg DAILY PO Last administered on 04/02/21 08:43; Start 04/02/21 at 09:00 Diphenhydramine HCl (Benadryl) 50 mg PRN Q6HRS PRN PO ITCHING Last administered on 04/01/21at 21:50; Start 04/01/21 at 20:45 Empaglifozin (Jardiance) 10 mg DAILY PO Last administered on 04/02/21 08:43; Start 04/02/21 at 09:00 Furosemide (Lasix) 20 mg PRN DAILY PRN PO Fluid Retention; Start 04/01/21 at 20:45 Metformin HCl (Glucophage) 500 mg Q8HRS PO Last administered on 04/02/21 08:43; Start 04/01/21 at 22:00 Oxycodone/ Acetaminophen (Percocet 5/325) 1 tab PRN QID PRN PO ORAL PAIN; Start 04/01/21 at 20:45 Pramipexole Dihydrochloride (miraPEX) 0.5 mg TID PO Last administered on 04/02/21 08:45; Start 04/01/21 at 21:00 Prasugrel (Effient) 10 mg DAILY PO Last administered on 04/02/21 08:44; Start 04/02/21 at 09:00 Sacubitril/ Valsartan (Entresto 49 Mg-51 Mg) 1 tab BID PO Last administered on 04/02/21 08:42; Start 04/01/21 at 21:00 Sertraline HCl (Zoloft) 25 mg DAILY PO Last administered on 04/02/21 08:43; Start 04/02/21 at 09:00 Amiodarone HCl (Cordarone) 400 mg DAILY PO Last administered on 04/02/21 08:44; Start 04/02/21 at 09:00 Carvedilol (Coreg) 12.5 mg BID PO Last administered on 6/23/21at 08:43; Start 04/01/21 at 21:30 Betamethasone Dipropion Augmented (Betamethasone Dp Aug 0.05% Cream) 1 yadira PRN TID PRN TP RASH Last administered on 04/01/21at 21:50; Start 04/01/21 at 21:30 Doxepin HCl (SINEquan) 25 mg QID PO Last administered on 04/02/21at 08:44; Start 04/01/21 at 21:30 Multivitamins/ Calcium (Thera-M Plus) 1 tab DAILY PO Last administered on 04/02/21at 08:43; Start 04/02/21 at 09:00 Fish Oil (Fish Oil) 1,000 mg DAILY PO Last administered on 04/02/21 08:44; Start 04/02/21 at 09:00 Potassium Chloride (Klor-Con) 20 meq PRN QHS PRN PO Supplement-take with PRN Lasix; Start 04/01/21 at 21:15 Atorvastatin Calcium (Lipitor) 80 mg QHS PO Last administered on 04/01/21at 21:50; Start 04/01/21 at 21:30 Topiramate (Topamax) 50 mg DAILY PO Last administered on 04/02/21at 08:44; Start 04/02/21 at 09:00 Active Scripts Active Doxepin Hcl 50 Mg Capsule 25 Mg PO QID Endocet 5-325 Tablet (Oxycodone Hcl/Acetaminophen) 1 Each Tablet 1 Tab PO PRN QID PRN MDD 4 Tablet(s) 3 Days Reported Benadryl (Diphenhydramine Hcl) 25 Mg Capsule 50 Mg PO PRN Q6HRS PRN Topicort (Desoximetasone) 60 Gm Cream..g. 1 Yadira TP PRN TID PRN LAST DOSE GIVEN: DATE: TIME: NEXT DOSE DUE: DATE: TIME: Topiramate 50 Mg Tablet 50 Mg PO DAILY LAST DOSE GIVEN: DATE: TIME: NEXT DOSE DUE: DATE: TIME: Amiodarone Hcl 400 Mg Tablet 400 Mg PO DAILY LAST DOSE GIVEN: DATE: TIME: NEXT DOSE DUE: DATE: TIME: Zoloft (Sertraline Hcl) 25 Mg Tablet 25 Mg PO DAILY LAST DOSE GIVEN: DATE: TIME: NEXT DOSE DUE: DATE: TIME: Metformin Hcl 500 Mg Tablet 500 Mg PO Q8HRS LAST DOSE GIVEN: DATE: TIME: NEXT DOSE DUE: DATE: TIME: Jardiance (Empagliflozin) 10 Mg Tablet 10 Mg PO DAILY LAST DOSE GIVEN: DATE: TIME: NEXT DOSE DUE: DATE: TIME: Coreg Cr (Carvedilol Phosphate) 20 Mg Cpmp.24hr 20 Mg PO BID LAST DOSE GIVEN: DATE: TIME: NEXT DOSE DUE: DATE: TIME: Aspirin Ec (Aspirin) 325 Mg Tablet.dr 325 Mg PO DAILY LAST DOSE GIVEN: DATE: TIME: NEXT DOSE DUE: DATE: TIME: Entresto 49 mg-51 mg Tablet (Sacubitril/Valsartan) 1 Each Tablet 1 Tab PO BID LAST DOSE GIVEN: DATE: TIME: NEXT DOSE DUE: DATE: TIME: Prasugrel HCl 10 Mg Tablet 10 Mg PO DAILY LAST DOSE GIVEN: DATE: TIME: NEXT DOSE DUE: DATE: TIME: Multi Vitamin Daily (Multivitamin) 1 Each Tablet 1 Tab PO DAILY LAST DOSE GIVEN: DATE: TIME: NEXT DOSE DUE: DATE: TIME: Fish Oil 1,400 Mg Softgel (Verdi-3/Dha/Epa/Fish Oil) 1 Each Capsule.dr 1 Cap PO DAILY LAST DOSE GIVEN: DATE: TIME: NEXT DOSE DUE: DATE: TIME: Mirapex (Pramipexole Di-Hcl) 0.5 Mg Tablet 0.5 Mg PO TID LAST DOSE GIVEN: DATE: TIME: NEXT DOSE DUE: DATE: TIME: K-Tab ER (Potassium Chloride) 20 Meq Tablet.er 20 Meq PO HS PRN LAST DOSE GIVEN: DATE: TIME: NEXT DOSE DUE: DATE: TIME: Lasix (Furosemide) 20 Mg Tablet 20 Mg PO DAILY PRN LAST DOSE GIVEN: DATE: TIME: NEXT DOSE DUE: DATE: TIME: Crestor (Rosuvastatin Calcium) 40 Mg Tablet 40 Mg PO QHS LAST DOSE GIVEN: DATE: TIME: NEXT DOSE DUE: DATE: TIME: ALLERGIES Allergies: Coded Allergies: Sulfa (Sulfonamide Antibiotics) (Verified Allergy, Intermediate, 04/01/21) spironolactone (Verified Allergy, Unknown, 04/01/21) ROS Review of Systems 14 point ROS conducted with pertinent positives notes above in HPI PHYSICAL EXAM General: Alert, Oriented X3, Cooperative, No acute distress HEENT: Atraumatic Lungs: Clear to auscultation Heart: Regular rate Abdomen: Soft, No tenderness Extremities: No edema, Normal pulses Skin: No rashes, No breakdown Neuro: Normal speech, Sensation intact Psych/Mental Status: Mental status NL, Mood NL MUSCULOSKELETAL: Osteoarthritic changes both hands VITALS Vital Signs Vital Signs Date Time Temp Pulse Resp B/P (MAP) Pulse Ox O2 Delivery O2 Flow Rate FiO2 04/02/21 08:44 73 123/86 04/02/21 05:50 97.8 14 96 Room Air LABS LABS Laboratory Tests Test 04/01/21 15:47 04/01/21 16:27 04/01/21 19:15 04/01/21 21:35 White Blood Count 8.5 x10^3/uL (4.0-11.0) Red Blood Count 4.02 x10^6/uL (3.50-5.40) Hemoglobin 12.4 g/dL (12.0-15.5) Hematocrit 37.1 % (36.0-47.0) Mean Corpuscular Volume 92 fL (79-100) Mean Corpuscular Hemoglobin 31 pg (25-35) Mean Corpuscular Hemoglobin Concent 34 g/dL (31-37) Red Cell Distribution Width 14.9 % (11.5-14.5) Platelet Count 267 x10^3/uL (140-400) Neutrophils (%) (Auto) 61 % (31-73) Lymphocytes (%) (Auto) 27 % (24-48) Monocytes (%) (Auto) 9 % (0-9) Eosinophils (%) (Auto) 3 % (0-3) Basophils (%) (Auto) 1 % (0-3) Neutrophils # (Auto) 5.2 x10^3uL (1.8-7.7) Lymphocytes # (Auto) 2.3 x10^3/uL (1.0-4.8) Monocytes # (Auto) 0.8 x10^3/uL (0.0-1.1) Eosinophils # (Auto) 0.2 x10^3/uL (0.0-0.7) Basophils # (Auto) 0.1 x10^3/uL (0.0-0.2) Sodium Level 145 mmol/L (136-145) Potassium Level 4.1 mmol/L (3.5-5.1) Chloride Level 110 mmol/L (98-107) Carbon Dioxide Level 26 mmol/L (21-32) Anion Gap 9 (6-14) Blood Urea Nitrogen 10 mg/dL (7-20) Creatinine 0.9 mg/dL (0.6-1.0) Estimated GFR (Cockcroft-Gault) 66.3 BUN/Creatinine Ratio 11 (6-20) Glucose Level 87 mg/dL (70-99) Calcium Level 8.7 mg/dL (8.5-10.1) Magnesium Level 1.6 mg/dL (1.8-2.4) Total Bilirubin 0.3 mg/dL (0.2-1.0) Aspartate Amino Transf (AST/SGOT) 20 U/L (15-37) Alanine Aminotransferase (ALT/SGPT) 37 U/L (14-59) Alkaline Phosphatase 58 U/L (46-116) Creatine Kinase 60 U/L (26-192) Creatine Kinase MB (Mass) 1.0 ng/mL (0.0-3.6) Creatine Kinase MB Relative Index 1.7 % (0-4) Troponin I Quantitative < 0.017 ng/mL (0-0.055) < 0.017 ng/mL (0-0.055) < 0.017 ng/mL (0-0.055) UI-Cwt-Q-Type Natriuretic Peptide 303 pg/mL (0-124) Total Protein 6.8 g/dL (6.4-8.2) Albumin 3.6 g/dL (3.4-5.0) Albumin/Globulin Ratio 1.1 (1.0-1.7) Lipase 185 U/L (73-393) Urine Collection Type Unknown Urine Color Yellow Urine Clarity Clear Urine pH 6.0 Urine Specific [place] 1.020 Urine Protein Neg (NEG-TRACE) Urine Glucose (UA) 500 mg/dL (NEG) Urine Ketones (Stick) Neg mg/dL (NEG) Urine Blood Neg (NEG) Urine Nitrite Neg (NEG) Urine Bilirubin Neg (NEG) Urine Urobilinogen Dipstick 0.2 mg/dL (0.2 mg/dL) Urine Leukocyte Esterase Neg (NEG) Urine RBC 1-2 /HPF (0-2) Urine WBC Occ /HPF (0-4) Urine Squamous Epithelial Cells Occ /LPF Urine Bacteria 0 /HPF (0-FEW) Test 04/02/21 05:35 White Blood Count 7.3 x10^3/uL (4.0-11.0) Red Blood Count 3.80 x10^6/uL (3.50-5.40) Hemoglobin 11.8 g/dL (12.0-15.5) Hematocrit 35.0 % (36.0-47.0) Mean Corpuscular Volume 92 fL (79-100) Mean Corpuscular Hemoglobin 31 pg (25-35) Mean Corpuscular Hemoglobin Concent 34 g/dL (31-37) Red Cell Distribution Width 14.9 % (11.5-14.5) Platelet Count 250 x10^3/uL (140-400) Neutrophils (%) (Auto) 66 % (31-73) Lymphocytes (%) (Auto) 23 % (24-48) Monocytes (%) (Auto) 8 % (0-9) Eosinophils (%) (Auto) 3 % (0-3) Basophils (%) (Auto) 1 % (0-3) Neutrophils # (Auto) 4.8 x10^3uL (1.8-7.7) Lymphocytes # (Auto) 1.7 x10^3/uL (1.0-4.8) Monocytes # (Auto) 0.6 x10^3/uL (0.0-1.1) Eosinophils # (Auto) 0.2 x10^3/uL (0.0-0.7) Basophils # (Auto) 0.0 x10^3/uL (0.0-0.2) Sodium Level 140 mmol/L (136-145) Potassium Level 4.2 mmol/L (3.5-5.1) Chloride Level 109 mmol/L (98-107) Carbon Dioxide Level 26 mmol/L (21-32) Anion Gap 5 (6-14) Blood Urea Nitrogen 11 mg/dL (7-20) Creatinine 1.0 mg/dL (0.6-1.0) Estimated GFR (Cockcroft-Gault) 58.7 BUN/Creatinine Ratio 11 (6-20) Glucose Level 110 mg/dL (70-99) Calcium Level 8.1 mg/dL (8.5-10.1) Magnesium Level 1.7 mg/dL (1.8-2.4) Total Bilirubin 0.3 mg/dL (0.2-1.0) Aspartate Amino Transf (AST/SGOT) 14 U/L (15-37) Alanine Aminotransferase (ALT/SGPT) 30 U/L (14-59) Alkaline Phosphatase 54 U/L (46-116) Total Protein 6.1 g/dL (6.4-8.2) Albumin 3.2 g/dL (3.4-5.0) Albumin/Globulin Ratio 1.1 (1.0-1.7) ECHOCARDIOGRAM Echocardiogram <Conclusion> The left ventricular systolic function is moderately impaired. The Ejection Fraction is 35-40%. Transmitral Doppler flow pattern is Grade II-pseudonormal filling dynamics. ICD lead noted in RV/RA. Trace mitral regurgitation. Trace tricuspid regurgitation. The PA pressure was estimated at 23 mmHg. DATE: 04/18/19 1338 <Conclusion> The left ventricle is normal size. Left ventricle systolic function is mildly impaired. The Ejection Fraction is 40-45%. There is global hypokinesis of the left ventricle. Doppler and Color Flow revealed no significant aortic regurgitation. There is no significant aortic valvular stenosis. Doppler and Color-flow revealed trace to mild mitral regurgitation. Doppler and Color Flow revealed trace to mild tricuspid regurgitation. The PA pressure was estimated at 28 mmHg. DATE: 10/15/20 [id number] HEART CATH Heart Cath Coronary angiography: LM: Large caliber vessel with normal angiographic appearance LAD: Moderate caliber vessel with severe negative remodeling with a patent mid stent with 50% ISR. D1: Large caliber dominant vessel with mild luminal irregularities. D2: Small caliber vessel with a patent stent extending from the LAD with 40-50% proximal ISR. LCX: Moderate caliber non-dominant vessel with mild luminal irregularities OM1: Moderate caliber vessel with normal angiographic appearance LPL1: Moderate caliber vessel with normal angiographic appearance. RCA: Large caliber dominant vessel with a mid 30% stenosis. RPDA: Moderate caliber vessel with mild luminal irregularities. CLOSURE: At case completion the right radial sheath was removed and a Terumo radial band was applied with 11 mL of air. Hemostasis was achieved. COMPLICATIONS: No acute complications noted Conclusion 1. Normal left sided filling pressures. 2. One vessel CAD with patent LAD/D2 stents, unchanged from prior angiogram in 2016. Recommendations 1. Aggressive medical therapy and risk factor modification. DATE: 10/15/20 [id number] ASSESSMENT/PLAN Assessment/Plan 1. Chest pain, atypical; AMI ruled out. Cath 1/21 with one-vessel disease with patent LAD/D2 stents as noted above. 2. Palpitations, dizziness; brief episode yesterday afternoon. Resolved prior to arrival in ED. 3. Ventricular arrhythmia; run of VFIB with a peak rate of 279 occurred 03/28/21. Lasting 16 seconds. s/p defibrillator discharge with resolution. Amiodarone initiated, but has not filled as pharmacy is out of medication. 4. Ischemic cardiomyopathy s/p AICD ([employer]). Device check 03/28/21 with normal function. Adequate battery life. 5. CAD s/p PCI/stent to LAD/D2ated 6. Chronic systolic heart failure; LVEF 40-45% per echo 10/31. clinically compens 7. Hyperlipidemia; statin 8. Hypomagnesemia Recommendations Device interrogation Replace Mg Continue BB Start Amiodarone for rhythm maintenance; will load per IV protocol Secondary prevention with ASA/Effient HF optimizaiton with Coreg, Entresto. Lasix PRN Further pending device interrogation. If recurrent VF/VT noted, will need ischemic evaluation Supportive care ROSE AHN APRN Apr 02, 2021 09:07
[2021-04-02] MEDS ORDERED: MAGNESIUM SULFATE 2GM 50 ML IV ONE (09:15)
[2021-04-02 10:13] VITALS: BP 120/81
[2021-04-02] MEDS ORDERED: AMIODARONE 150 MG in IV DEXTROSE 5% 100 ML IVP ONE (10:30)
[2021-04-02] MEDS: AMIODARONE 450 MG in IV DEXTROSE 5% 250 ML IV PRN ×2 (10:59→19:39)
--- NOTE | 2021-04-02 11:41 | HP ---
ADMIT DATE: 04/01/2021 ATTENDING PHYSICIAN: Dr. Estrada. CHIEF COMPLAINT: Chest pain and arrhythmias. 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 She has a longstanding history of congestive heart failure, acute on chronic. She had an [place] in 2009. She has AICD, a [employer] device. Her EF most recently was estimated at 35-40% in March of this past year. She was at home, really did not do too much. She may have not been compliant with her medication. In regards 4 days ago, her defibrillator went off. The shock was noticeable. It felt like somebody hitting her in the chest. Since that time, she has been in contact with Dr. Rojo, her main ore washer. Alley Chase has seen her today. They have ordered an interrogation of the device to see what the exact rhythm was. In addition, they have started her on an amiodarone drip to control her arrhythmia. This morning, her blood pressure is adequate. She is alert. She is in no acute distress. PAST MEDICAL HISTORY: Significant for hypertension, hyperlipidemia, viral meningitis, coronary artery disease, PCI with three stents, acute on chronic systolic heart failure, EF estimated at 35-40%, AICD placement in 2009. This is the first time it was fired in that period. PAST SURGICAL HISTORY: Left heart catheterization, total abdominal hysterectomy, AICD placement. SOCIAL HISTORY: She is a nonsmoker, nondrinker. CURRENT MEDICINES: Reviewed. ALLERGIES: SHE HAS ALLERGIES TO SULFA DRUGS AND ALDACTONE, REACTION IS UNCLEAR. CURRENT MEDICATIONS: She is on p.r.n. lorazepam, magnesium, aspirin daily, Jardiance, Lasix 20 mg p.r.n., metformin, oxycodone p.r.n., Effient, Entresto 49/51 b.i.d., Zoloft, amiodarone 400 mg daily, Coreg, betamethasone, doxepin, potassium, Lipitor, and Topamax. FAMILY HISTORY: Noncontributory. REVIEW OF SYSTEMS: Significant for the recent firing of her AICD. No recent travel or COVID exposure, bleeds, nausea or vomiting. All other systems reviewed and turned to be negative. PHYSICAL EXAMINATION: GENERAL: When I saw her, this is a pleasant, middle-aged female. She was alert and oriented. VITAL SIGNS: Initial blood pressure was 121/78 mmHg. She was afebrile, pulse is down to 75 and regular, oxygen saturation 99% on room air. HEENT: Head is without trauma. Pupils are reactive. Sclerae nonicteric. Oropharynx is clear. NECK: Supple. No bruits identified. LUNGS: Otherwise clear. CARDIOVASCULAR: Showed regular heart tones. No gallops. ABDOMEN: Soft. EXTREMITIES: Without edema. NEUROLOGIC: Function focally intact. SKIN: Warm and dry. PERTINENT LABORATORY STUDIES: Her last cardiac catheterization in 10/2020, 5 months ago showed patent coronaries, 1-vessel CAD with patent LAD, D2 stents, unchanged from previous angiogram in 2016. ASSESSMENT: 1. A 50-year-old female with atypical chest pain. NJ has been ruled out. Cardiac catheterization recently in 10/2020. 2. Known coronary artery disease with PCI stent to LAD. 3. Ischemic cardiomyopathy, EF estimated at 35-40%. 4. Status post AICD placement. 5. Ventricular fibrillation, lasting about 16 seconds, the defibrillator discharge were interrogating this. She may have ran out of her amiodarone. 6. Hyperlipidemia. 7. Chronic systolic heart failure. PLAN: 1. Magnesium replacement. 2. Keep on monitor. 3. Amiodarone drip for rhythm maintenance. 4. Continue Effient and aspirin. 5. Recs per Cardiology. MADISON DR: Ger TID: [id number]
[2021-04-02 12:42] VITALS: BP 109/73
[2021-04-02 17:01] VITALS: BP 120/78
[2021-04-02] MEDS: diphenhydrAMINE HCL 25 MG CAPSULE PO PRN (20:41)
[2021-04-02] MEDS: ATORVASTATIN CALCIUM 20 MG TABLET PO SCH (20:41)
[2021-04-03] MEDS: metFORMIN 500 MG TABLET PO SCH (05:24)
[2021-04-03 05:30] VITALS: BP 105/67
[2021-04-03] MEDS: PRAMIPEXOLE 0.5 MG TABLET. PO SCH (08:14)
[2021-04-03] MEDS: MULTIVITAMIN with MINERAL TABLET. PO SCH (08:14)
[2021-04-03] MEDS: DOXEPIN HCL 25 MG CAPSULE PO SCH (08:14)
[2021-04-03] MEDS: SACUBITRIL/VALSARTAN 49/51MG TABLET. PO SCH (08:14)
[2021-04-03] MEDS: ASPIRIN ENTERIC COATED 325 MG TABLET.DR. PO SCH (08:14)
[2021-04-03 08:15] VITALS: BP 120/79
[2021-04-03] MEDS: CARVEDILOL 12.5 MG TABLET PO SCH (08:15)
[2021-04-03] MEDS: SERTRALINE 25 MG TABLET. PO SCH (08:15)
[2021-04-03] MEDS: AMIODARONE HCL 200 MG TABLET. PO SCH (08:15)
[2021-04-03] MEDS: EMPAGLIFLOZIN 10 MG TABLET. PO SCH (08:15)
[2021-04-03] MEDS: OMEGA-3 FATTY ACIDS/FISH OIL 1,000 MG CAPSULE. PO SCH (08:15)
[2021-04-03] MEDS: TOPIRAMATE 25 MG TABLET. PO SCH (08:15)
[2021-04-03] MEDS: PRASUGREL 10 MG TABLET. PO SCH (08:15)
--- NOTE | 2021-04-03 08:27 | PDOC ---
CARDIO Progress Notes Date & Time Date of Service DATE: 04/03/21 TIME: 08:25 Time of Evaluation 08:25 Subjective Notes no chest pain, dizziness, diaphoresis, dizziness, diaphoresis Vitals Vitals Vital Signs Date Time Temp Pulse Resp B/P (MAP) Pulse Ox O2 Delivery O2 Flow Rate FiO2 04/03/21 08:15 71 120/79 04/03/21 05:30 98.3 20 98 Room Air Weight Weight [ ] Input and Output I.O. Intake and Output 04/03/21 07:00 Intake Total 772 ml Balance 772 ml Intake Oral 360 ml IV Total 412 ml # Voids 2 Laboratory Labs Laboratory Tests Test 04/01/21 15:47 04/01/21 16:27 04/01/21 19:15 04/01/21 21:35 White Blood Count 8.5 x10^3/uL (4.0-11.0) Red Blood Count 4.02 x10^6/uL (3.50-5.40) Hemoglobin 12.4 g/dL (12.0-15.5) Hematocrit 37.1 % (36.0-47.0) Mean Corpuscular Volume 92 fL (79-100) Mean Corpuscular Hemoglobin 31 pg (25-35) Mean Corpuscular Hemoglobin Concent 34 g/dL (31-37) Red Cell Distribution Width 14.9 % (11.5-14.5) Platelet Count 267 x10^3/uL (140-400) Neutrophils (%) (Auto) 61 % (31-73) Lymphocytes (%) (Auto) 27 % (24-48) Monocytes (%) (Auto) 9 % (0-9) Eosinophils (%) (Auto) 3 % (0-3) Basophils (%) (Auto) 1 % (0-3) Neutrophils # (Auto) 5.2 x10^3uL (1.8-7.7) Lymphocytes # (Auto) 2.3 x10^3/uL (1.0-4.8) Monocytes # (Auto) 0.8 x10^3/uL (0.0-1.1) Eosinophils # (Auto) 0.2 x10^3/uL (0.0-0.7) Basophils # (Auto) 0.1 x10^3/uL (0.0-0.2) Sodium Level 145 mmol/L (136-145) Potassium Level 4.1 mmol/L (3.5-5.1) Chloride Level 110 mmol/L (98-107) Carbon Dioxide Level 26 mmol/L (21-32) Anion Gap 9 (6-14) Blood Urea Nitrogen 10 mg/dL (7-20) Creatinine 0.9 mg/dL (0.6-1.0) Estimated GFR (Cockcroft-Gault) 66.3 BUN/Creatinine Ratio 11 (6-20) Glucose Level 87 mg/dL (70-99) Calcium Level 8.7 mg/dL (8.5-10.1) Magnesium Level 1.6 mg/dL (1.8-2.4) Total Bilirubin 0.3 mg/dL (0.2-1.0) Aspartate Amino Transf (AST/SGOT) 20 U/L (15-37) Alanine Aminotransferase (ALT/SGPT) 37 U/L (14-59) Alkaline Phosphatase 58 U/L (46-116) Creatine Kinase 60 U/L (26-192) Creatine Kinase MB (Mass) 1.0 ng/mL (0.0-3.6) Creatine Kinase MB Relative Index 1.7 % (0-4) Troponin I Quantitative < 0.017 ng/mL (0-0.055) < 0.017 ng/mL (0-0.055) < 0.017 ng/mL (0-0.055) JN-Jfh-T-Type Natriuretic Peptide 303 pg/mL (0-124) Total Protein 6.8 g/dL (6.4-8.2) Albumin 3.6 g/dL (3.4-5.0) Albumin/Globulin Ratio 1.1 (1.0-1.7) Lipase 185 U/L (73-393) Urine Collection Type Unknown Urine Color Yellow Urine Clarity Clear Urine pH 6.0 Urine Specific [place] 1.020 Urine Protein Neg (NEG-TRACE) Urine Glucose (UA) 500 mg/dL (NEG) Urine Ketones (Stick) Neg mg/dL (NEG) Urine Blood Neg (NEG) Urine Nitrite Neg (NEG) Urine Bilirubin Neg (NEG) Urine Urobilinogen Dipstick 0.2 mg/dL (0.2 mg/dL) Urine Leukocyte Esterase Neg (NEG) Urine RBC 1-2 /HPF (0-2) Urine WBC Occ /HPF (0-4) Urine Squamous Epithelial Cells Occ /LPF Urine Bacteria 0 /HPF (0-FEW) Test 04/02/21 05:35 White Blood Count 7.3 x10^3/uL (4.0-11.0) Red Blood Count 3.80 x10^6/uL (3.50-5.40) Hemoglobin 11.8 g/dL (12.0-15.5) Hematocrit 35.0 % (36.0-47.0) Mean Corpuscular Volume 92 fL (79-100) Mean Corpuscular Hemoglobin 31 pg (25-35) Mean Corpuscular Hemoglobin Concent 34 g/dL (31-37) Red Cell Distribution Width 14.9 % (11.5-14.5) Platelet Count 250 x10^3/uL (140-400) Neutrophils (%) (Auto) 66 % (31-73) Lymphocytes (%) (Auto) 23 % (24-48) Monocytes (%) (Auto) 8 % (0-9) Eosinophils (%) (Auto) 3 % (0-3) Basophils (%) (Auto) 1 % (0-3) Neutrophils # (Auto) 4.8 x10^3uL (1.8-7.7) Lymphocytes # (Auto) 1.7 x10^3/uL (1.0-4.8) Monocytes # (Auto) 0.6 x10^3/uL (0.0-1.1) Eosinophils # (Auto) 0.2 x10^3/uL (0.0-0.7) Basophils # (Auto) 0.0 x10^3/uL (0.0-0.2) Sodium Level 140 mmol/L (136-145) Potassium Level 4.2 mmol/L (3.5-5.1) Chloride Level 109 mmol/L (98-107) Carbon Dioxide Level 26 mmol/L (21-32) Anion Gap 5 (6-14) Blood Urea Nitrogen 11 mg/dL (7-20) Creatinine 1.0 mg/dL (0.6-1.0) Estimated GFR (Cockcroft-Gault) 58.7 BUN/Creatinine Ratio 11 (6-20) Glucose Level 110 mg/dL (70-99) Calcium Level 8.1 mg/dL (8.5-10.1) Magnesium Level 1.7 mg/dL (1.8-2.4) Total Bilirubin 0.3 mg/dL (0.2-1.0) Aspartate Amino Transf (AST/SGOT) 14 U/L (15-37) Alanine Aminotransferase (ALT/SGPT) 30 U/L (14-59) Alkaline Phosphatase 54 U/L (46-116) Total Protein 6.1 g/dL (6.4-8.2) Albumin 3.2 g/dL (3.4-5.0) Albumin/Globulin Ratio 1.1 (1.0-1.7) Thyroid Stimulating Hormone (TSH) 1.029 uIU/mL (0.358-3.740) Physical Exams HEENT: Neck Supple W Full Motion Chest: Symmetric Lungs: Clear to Auscultation Heart: RRR (atrial pacing ) Abdomen: Soft N/T Extremities: No Edema Neurology: alert, oriented, follow commands Assessment Assessment 1. Chest pain, atypical; AMI ruled out. Cath 10/31 with one-vessel disease with patent LAD/D2 stents as noted above. 2. Palpitations, dizziness; brief episode yesterday afternoon. Resolved prior to arrival in ED. 3. Ventricular arrhythmia; run of VFIB with a peak rate of 279 occurred . Lasting 16 seconds. s/p defibrillator discharge with resolution. Amiodarone initiated, but has not filled as pharmacy is out of medication. Device interrogation did not reveal any further ventricular arrhythmias. 4. Ischemic cardiomyopathy s/p AICD ([employer]). Device check 03/28/21 with normal function. Adequate battery life. 5. CAD s/p PCI/stent to LAD/D2ated 6. Chronic systolic heart failure; LVEF 40-45% per echo 10/31. clinically compens 7. Hyperlipidemia; statin 8. Hypomagnesemia Recommendations Continue BB Amiodarone for rhythm maintenance; start 400mg BID x7 days then daily thera when 24 hr loading complete Secondary prevention with ASA/Effient HF optimizaiton with Coreg, Entresto. Lasix PRN Supportive care Follow up in our office with Dr. Rojo June 04 12:45pm. Outpatient referral to ROSE ZAPATA APRN Apr 03, 2021 08:27
--- NOTE | 2021-04-03 18:33 | DS ---
DATE OF DISCHARGE: 04/03/2021 ATTENDING PHYSICIAN: Dr. Estrada. FINAL DISCHARGE DIAGNOSES: 1. Atypical chest pain, myocardial infarct ruled out. Previous catheterization in 10/2020 showed 1 vessel disease with patent LAD/D2 stents. 2. Palpitations with episode of ventricular fibrillation. She did have defibrillator discharge with resolution. 3. Ischemic cardiomyopathy with ejection fraction estimated at 40%. 4. Previous myocardial infarction. 5. Known coronary artery disease. 6. Hyperlipidemia. 7. Hypomagnesemia. 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 She has a longstanding history of ischemic cardiomyopathy. Most recent catheterization in 10/2020. She also has an AICD for the last 10 years, which fired for the first time. She had an episode of ventricular arrhythmia. Peak rate of 279 lasting 16 seconds according to the interrogation. She has been on amiodarone, but had not initiated therapy. PHYSICAL EXAMINATION: Please see the dictated note. PERTINENT LABORATORY AND X-RAY STUDIES: Admission hemoglobin was 12.4 g/dL, white count 8500. Electrolytes all within normal range. Nonfasting blood sugar 110. Transaminases are normal. Three sets of cardiac enzymes negative for coronary ischemia. TSH was normal. COURSE IN THE HOSPITAL: The patient was admitted. She was seen in consultation by Cardiology. Dr. Rojo is her primary paper reclaiming machine operator. Amiodarone was initiated intravenously and switched to oral meds. She was monitored. Her device was interrogated. She did well. Home medications were continued. On the third hospital day, her vital signs are stable. Rhythm was checked and she had an underlying paced rhythm with normal functioning AICD per interrogation. Recs per Cardiology on the chart. At this time, she is discharged home on amiodarone 400 mg b.i.d. for 7 days and then 400 mg once daily thereafter. Other home meds are unchanged. She will continue her Entresto as ordered, aspirin, Coreg 20 mg b.i.d., diphenhydramine p.r.n., doxepin at bedtime, Jardiance, Lasix 20 mg daily, metformin, oxycodone p.r.n., potassium, Mirapex, Effient 10 mg daily, Crestor, Entresto 1 b.i.d., Zoloft 25 mg daily and Topamax p.r.n. She will follow up with her paper reclaiming machine operator as scheduled. The patient was then discharged from our hospital in stable condition with explicit drug and followup care. TOTAL DISCHARGE TIME: 39 minutes. ABEL/PARVEZ DR: ABEL/eliu TID: [id number]
--- NOTE | 2021-04-03 23:18 | EKG ---
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
--- NOTE | 2021-04-04 06:26 | EKG ---
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
== END 2021-04-03 10:10 | disposition home or self-care (01) | DRG 313 ==
LOC: ER 15:20 → OBSVTOIN 18:55 → ICU 18:55
PROVIDERS: ADMIT Internal Medicine; ATTEND Internal Medicine
DX: R07.89 Other chest pain (principal); I49.01 Ventricular fibrillation; I50.22 Chronic systolic (congestive) heart failure; R57.9 Shock, unspecified; E78.00 Pure hypercholesterolemia, unspecified; E78.5 Hyperlipidemia, unspecified; E83.42 Hypomagnesemia; F41.9 Anxiety disorder, unspecified; I11.0 Hypertensive heart disease with heart failure; I25.10 Atherosclerotic heart disease of native coronary artery without angina pectoris; I25.2 Old myocardial infarction; I25.5 Ischemic cardiomyopathy; Z79.899 Other long term (current) drug therapy; Z82.49 Family history of ischemic heart disease and other diseases of the circulatory system; Z90.710 Acquired absence of both cervix and uterus; Z95.5 Presence of coronary angioplasty implant and graft; Z95.810 Presence of automatic (implantable) cardiac defibrillator; Z88.2 Allergy status to sulfonamides; Z88.8 Allergy status to other drugs, medicaments and biological substances; K21.9 Gastro-esophageal reflux disease without esophagitis
CPT/HCPCS: 36415; 71045; 80053; 81001; 82553; 83690; 83735; 83880; 84443; 84484; 85025; 93005; 96374; J0282; J2060; J3475; Q0163; 99285-25

== ENCOUNTER 2021-05-19 20:20 | Emergency (ER) | payer OTHER ==
[~2021-05-19] VITALS: Ht 162.6 cm; Wt 106.0 kg
[~2021-05-19 20:20] MED LIST changes: +AMIO400T5 PO; +DESO60CR13 TP; +DIPH25CA58 PO; +TOPI50TA8 PO
[2021-05-19] MEDS: IV NORMAL SALINE 1,000ML 1,000 ML IV ONE (20:58)
[2021-05-19 21:02] LABS: BASO # 0.1 x10^3/uL (0.0-0.2); BASO % 1 % (0-3); EOS # 0.3 x10^3/uL (0.0-0.7); EOS % 4 % (0-3); HEMATOCRIT 36.7 % (36.0-47.0); HEMOGLOBIN 12.2 g/dL (12.0-15.5); LYMPH # 2.2 x10^3/uL (1.0-4.8); LYMPH % 30 % (24-48); MEAN CORPUSCULAR HEMOGLOBIN 31 pg (25-35); MEAN CORPUSCULAR HGB CONC 33 g/dL (31-37); MEAN CORPUSCULAR VOLUME 93 fL (79-100); MONO # 0.6 x10^3/uL (0.0-1.1); MONO % 8 % (0-9); NEUT # 4.2 x10^3uL (1.8-7.7); NEUT % 57 % (31-73); PLATELET COUNT 215 x10^3/uL (140-400); RED BLOOD COUNT 3.93 x10^6/uL (3.50-5.40); RED CELL DISTRIBUTION WIDTH 15.2 % (11.5-14.5); WHITE BLOOD COUNT 7.3 x10^3/uL (4.0-11.0)
[2021-05-19 21:06] LABS: CALCIUM 8.3 mg/dL (8.5-10.1); GFR 58.7; POTASSIUM 3.8 mmol/L (3.5-5.1)
--- NOTE | 2021-05-19 21:08 | PHYS DOC ---
Past History Past Medical History: A-Fib, Angina, CAD, CHF, High Cholesterol, Heart Disease, Hypertension, [place] Past Surgical History: Angioplasty, Hysterectomy, Tonsillectomy Additional Past Surgical Histo: cardiac stents, heart cath October 2020 Smoking: Non-smoker Alcohol Use: Occasionally Drug Use: None General Adult EDM: Chief Complaint: Palpitations HPI: HPI: Patient is a 50 year old female who presents with two episodes of palpitations earlier today. States most recent episode occurred 45 minutes ago. She has an AICD and reports it has activated twice this year, most recently last month. Reports feeling concerned that symptoms today were similar in nature to symptoms experienced before prior defibrillations. Denies any precipitating event for the symptoms and states she was not exerting herself prior to onset. Denies chest pain, nausea, lightheadedness, dizziness, or shortness of breath. Review of Systems: Review of Systems: Constitutional: Denies fever or chills Eyes: Denies redness or eye pain HENT: Denies sore throat; reports sinus congestion and pressure Respiratory: Denies cough or shortness of breath Cardiovascular: Reports palpitations. Denies chest pain. GI: Denies abdominal pain, nausea, or vomiting : Denies dysuria or hematuria Musculoskeletal: Denies back pain or joint pain Integument: Denies rash or skin lesions Neurologic: Denies headache, focal weakness or sensory changes Complete systems were reviewed and found to be within normal limits, except as documented in this note. Current Medications: Current Meds: Current Medications Medications (Trade) Dose Ordered Sig/Navin Start Time Stop Time Status Last Admin Dose Admin Sodium Chloride 1,000 ml @ 1,000 mls/hr 1X ONCE 05/19/21 20:30 05/19/21 21:29 Allergies: Allergies: Allergies Coded Allergies Type Severity Reaction Last Updated Verified Sulfa (Sulfonamide Antibiotics) Allergy Intermediate 04/01/21 Yes spironolactone Allergy Unknown 04/01/21 Yes Physical Exam: PE: Constitutional: Well developed, well nourished, no acute distress, non-toxic appearance HENT: Normocephalic, atraumatic, sinus congestion noted Eyes: PERRL, EOMI, conjunctiva normal, no discharge Neck: Normal range of motion, supple Lungs & Thorax: No respiratory distress, equal chest rise and fall Cardiovascular: Regular rate and rhythm. No murmurs. Abdomen: Soft, no tenderness Skin: Warm, dry, no erythema, no rash Extremities: No tenderness, ROM intact, no edema Neurologic: Alert and oriented X 3, no focal deficits noted Psychologic: Affect normal, judgment normal EKG: EKG: @2024: 69 BPM, normal sinus rhythm with occasional spikes (pacer) noted before p-waves, QRS 96ms, QT/QTc 408/439ms Prior EKG per [facility] obtained from 10/24/20 for comparison which appears similar to prior. Radiology/Procedures: Radiology/Procedures: [] Heart Score: C/O Chest Pain: N/A Course & Med Decision Making: Course & Med Decision Making 50 year old female with significant past cardiac history presents with palpitations. EKG stable. Labs obtained and posted to chart. TSH/free T4 pending. Telemetry monitoring notes patient stable heart rate throughout ER stay. Patient also notes some sinus pressure and fullness. Symptomatic steroid provided. Patient stable for discharge with outpatient follow-up with PCP/cardiology. Discussed findings and plan with patient and spouse, who acknowledge understanding and agreement. Brandon Disclaimer: Brandon Disclaimer: This electronic medical record was generated, in whole or in part, using a voice recognition dictation system. Departure Departure: Impression: Primary Impression: Palpitations Additional Impression: Sinusitis Qualified Codes: J01.90 - Acute sinusitis, unspecified Disposition: HOME / SELF CARE / HOMELESS Condition: STABLE Referrals: TJ FISCHER MD (PCP) Patient Instructions: Palpitations, [id number], Sinusitis, [id number] Additional Instructions: Increase fluid hydration. Follow closely with cardiology. Decrease stress. Scripts Prednisone (PREDNISONE) 20 Mg Tablet 2 TAB PO DAILY for Sinusitis, #8 TAB Start this prescription tomorrow, Wednesday05/20/21 Prov: MARA SMITH DO 05/19/21 MARA SMITH DO May 19, 2021 21:08
[2021-05-19 21:22] LABS: ALBUMIN 4.1 g/dL (3.4-5.0); ALBUMIN/GLOBULIN RATIO 1.4 (1.0-1.7); MAGNESIUM 2.3 mg/dL (1.8-2.4); TOTAL BILIRUBIN 0.4 mg/dL (0.2-1.0)
[2021-05-19 21:45] VITALS: BP 133/90
[2021-05-19] MEDS ORDERED: PRED20TA PO (21:52)
[2021-05-19] MEDS ORDERED: DEXAMETHASONE 4 MG TABLET ONE (21:56)
[2021-05-19] MEDS: DEXAMETHASONE 4 MG TABLET PO ONE (21:58)
--- NOTE | 2021-05-19 22:00 | EKG ---
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
[2021-05-20 14:39] LABS: FREE T4 1.08 ng/dL (0.76-1.46); THYROID STIM HORMONE (TSH) 10.252 uIU/mL (0.358-3.740)
== END 2021-05-19 21:45 | disposition home or self-care (01) ==
LOC: ER 20:20
DX: R00.2 Palpitations (principal); J01.90 Acute sinusitis, unspecified; I48.91 Unspecified atrial fibrillation; I25.10 Atherosclerotic heart disease of native coronary artery without angina pectoris; I25.2 Old myocardial infarction; E78.00 Pure hypercholesterolemia, unspecified; I11.9 Hypertensive heart disease without heart failure; Z98.61 Coronary angioplasty status; Z88.2 Allergy status to sulfonamides; Z88.8 Allergy status to other drugs, medicaments and biological substances
CPT/HCPCS: 36415; 80053; 82553; 83690; 83735; 84439; 84443; 84484; 85025; 93005; 96360; 99284; J7030; J8540

== ENCOUNTER → 2021-10-23 | Outpatient (CLI) | payer OTHER ==
[~2021-10-23] MED LIST changes: -LISI-517 PO; +LISI5TAB15 PO
--- NOTE | 2021-10-23 11:27 | RAD ---
EXAM: Chest, 2 views. HISTORY: Cough. COMPARISON: 04/01/2021 FINDINGS: 2 views of the chest are obtained. There is no infiltrate, pleural effusion or pneumothorax . The heart is normal in size. There is a cardiac pacemaker defibrillator in expected position. IMPRESSION: No acute pulmonary finding. Electronically signed by: Jennifer Armenta MD (10/23/2021 11:24 AM) [id number]
[2021-10-23 11:39] LABS: BASO # 0.1 x10^3/uL (0.0-0.2); BASO % 1 % (0-3); EOS # 0.3 x10^3/uL (0.0-0.7); EOS % 3 % (0-3); HEMATOCRIT 39.1 % (36.0-47.0); HEMOGLOBIN 12.8 g/dL (12.0-15.5); LYMPH # 1.7 x10^3/uL (1.0-4.8); LYMPH % 18 % (24-48); MEAN CORPUSCULAR HEMOGLOBIN 31 pg (25-35); MEAN CORPUSCULAR HGB CONC 33 g/dL (31-37); MEAN CORPUSCULAR VOLUME 95 fL (79-100); MONO # 0.9 x10^3/uL (0.0-1.1); MONO % 9 % (0-9); NEUT # 6.9 x10^3uL (1.8-7.7); NEUT % 70 % (31-73); PLATELET COUNT 210 x10^3/uL (140-400); RED BLOOD COUNT 4.09 x10^6/uL (3.50-5.40); RED CELL DISTRIBUTION WIDTH 14.7 % (11.5-14.5); WHITE BLOOD COUNT 9.9 x10^3/uL (4.0-11.0)
[2021-10-24 18:00] LABS: FREE T4 1.26 ng/dL (0.76-1.46); THYROID STIM HORMONE (TSH) 4.518 uIU/mL (0.358-3.740)
== END ==
LOC: RAD 10:47
PROVIDERS: ATTEND Family Medicine
DX: E03.9 Hypothyroidism, unspecified (principal); R05.9 Cough, unspecified; R06.02 Shortness of breath
CPT/HCPCS: 36415; 71046; 84439; 84443; 85025; 86140

== ENCOUNTER 2022-01-04 19:49 | Emergency (ER) | payer OTHER ==
[~2022-01-04] VITALS: Ht 162.6 cm; Wt 100.0 kg
[~2022-01-04 19:49] MED LIST changes: -EMPA10TA PO; +EMPA10TA3 PO
[2022-01-04] MEDS ORDERED: OXYMETAZOLINE 0.05% NASAL SPRAY 30ML BOTTLE. NS ONE (19:56)
--- NOTE | 2022-01-04 20:25 | PHYS DOC ---
Past History Past Medical History: A-Fib, Angina, CAD, CHF, High Cholesterol, Heart Disease, Hypertension, [place] Past Surgical History: Angioplasty, Hysterectomy, Tonsillectomy Additional Past Surgical Histo: cardiac stents, heart cath October 2020 Smoking: Non-smoker Alcohol Use: None Drug Use: None General Adult EDM: Chief Complaint: NOSEBLEED HPI: HPI: 51-year-old female presents via EMS with left-sided nosebleed. The patient started having nosebleed while at a friend's house. She was unable to get it to stop with direct pressure. It was bleeding briskly so they called an ambulance. Patient is on Effient an antiplatelet. The patient had a deviated septum corre ctive surgery 3 weeks ago. She has no other complaints this time. Review of Systems: Review of Systems: Constitutional: Denies fever or chills Eyes: Denies change in visual acuity HENT: Nosebleed Respiratory: Denies cough or shortness of breath Cardiovascular: Denies chest pain or edema GI: Denies abdominal pain, nausea, vomiting, bloody stools or diarrhea : Denies dysuria Musculoskeletal: Denies back pain or joint pain Integument: Denies rash Neurologic: Denies headache, focal weakness or sensory changes Endocrine: Denies polyuria or polydipsia Lymphatic: Denies swollen glands Psychiatric: Denies depression or anxiety Current Medications: Current Meds: Current Medications Medications (Trade) Dose Ordered Sig/Navin Start Time Stop Time Status Last Admin Dose Admin Oxymetazoline HCl (Afrin) 100 spray STK-MED ONCE 01/04/22 19:56 01/04/22 19:56 DC Allergies: Allergies: Allergies Coded Allergies Type Severity Reaction Last Updated Verified Sulfa (Sulfonamide Antibiotics) Allergy Intermediate 01/04/22 Yes spironolactone Allergy Intermediate 01/04/22 Yes Physical Exam: PE: Constitutional: Well developed, well nourished, no acute distress, non-toxic appearance. [] HENT: Normocephalic, atraumatic, bilateral external ears normal, oropharynx moist, no oral exudates, nose with brisk bright red bleeding from the left nare. [] Eyes: PERRLA, EOMI, conjunctiva normal, no discharge. [] Neck: Normal range of motion, no tenderness, supple, no stridor. [] Cardiovascular: Heart rate regular rhythm, no murmur [] Lungs & Thorax: Bilateral breath sounds clear to auscultation [] Abdomen: Bowel sounds normal, soft, no tenderness, no masses, no pulsatile masses. [] Skin: Warm, dry, no erythema, no rash. [] Back: No tenderness, no CVA tenderness. [] Extremities: No tenderness, no cyanosis, no clubbing, ROM intact, no edema. [] Neurologic: Alert and oriented X 3, normal motor function, normal sensory function, no focal deficits noted. [] Psychologic: Affect normal, judgement normal, mood normal. [] Current Patient Data: Vital Signs: Vital Signs Date Time Temp Pulse Resp B/P (MAP) Pulse Ox O2 Delivery O2 Flow Rate FiO2 01/04/22 20:10 98.9 96 133/90 (104) 95 EKG: EKG: [] Radiology/Procedures: Radiology/Procedures: [] Heart Score: C/O Chest Pain: N/A Risk Factors: Risk Factors: DM, Current or recent (<one month) smoker, HTN, HLP, family history of CAD, obesity. Risk Scores: Score 0 - 3: 2.5% MACE over next 6 weeks - Discharge Home Score 4 - 6: 20.3% MACE over next 6 weeks - Admit for Clinical Observation Score 7 - 10: 72.7% MACE over next 6 weeks - Early Invasive Strategies Course & Med Decision Making: Course & Med Decision Making Pertinent Labs and Imaging studies reviewed. (See chart for details) We had the patient blow her nose to clear the clots. I then sprayed 2 sprays of Afrin in the left side of her nose. I applied direct pressure by hand. The patient was still feeling bleeding running down the back of her throat. A Rhino Rocket was inserted. The bleeding appears to be controlled. The patient has had some Hemolacria. I decreased the balloon pressure by 2 cc which seemed to continue to provide adequate hemostasis. The patient's Rhino Rocket was fully saturated so it was replaced. The patient's bleeding was controlled. She has mild anemia but does not require transfusion. Advised that she follow-up with ENT. She is stable for discharge at this time. [] Dragon Disclaimer: Dragon Disclaimer: This electronic medical record was generated, in whole or in part, using a voice recognition dictation system. Departure Departure: Impression: Primary Impression: Epistaxis Disposition: HOME / SELF CARE / HOMELESS Condition: IMPROVED Referrals: AMADO MOLINA (PCP) Patient Instructions: JAME Mcguire DO Jan 04, 2022 20:25
[2022-01-04] MEDS ORDERED: IV NORMAL SALINE 1,000ML 1,000 ML IV ONE (20:30)
[2022-01-04 21:21] LABS: BASO # 0.1 x10^3/uL (0.0-0.2); BASO % 1 % (0-3); EOS # 0.1 x10^3/uL (0.0-0.7); EOS % 2 % (0-3); HEMATOCRIT 35.5 % (36.0-47.0); HEMOGLOBIN 11.7 g/dL (12.0-15.5); LYMPH % 28 % (24-48); MEAN CORPUSCULAR HEMOGLOBIN 31 pg (25-35); MEAN CORPUSCULAR HGB CONC 33 g/dL (31-37); MEAN CORPUSCULAR VOLUME 94 fL (79-100); MONO # 0.6 x10^3/uL (0.0-1.1); MONO % 8 % (0-9); NEUT # 4.4 x10^3uL (1.8-7.7); NEUT % 61 % (31-73); PLATELET COUNT 214 x10^3/uL (140-400); RED BLOOD COUNT 3.77 x10^6/uL (3.50-5.40); WHITE BLOOD COUNT 7.1 x10^3/uL (4.0-11.0)
[2022-01-04 21:30] LABS: CALCIUM 8.5 mg/dL (8.5-10.1); CREATININE 1.2 mg/dL (0.6-1.0); GFR 47.4; POTASSIUM 3.8 mmol/L (3.5-5.1)
[2022-01-04 21:36] LABS: ALBUMIN 3.5 g/dL (3.4-5.0); ALBUMIN/GLOBULIN RATIO 1.2 (1.0-1.7); TOTAL BILIRUBIN 0.3 mg/dL (0.2-1.0); TOTAL PROTEIN 6.5 g/dL (6.4-8.2)
[2022-01-04 22:10] VITALS: BP 103/65
== END 2022-01-04 22:35 | disposition home or self-care (01) ==
LOC: ER 19:49
DX: R04.0 Epistaxis (principal); I48.91 Unspecified atrial fibrillation; I25.10 Atherosclerotic heart disease of native coronary artery without angina pectoris; I11.0 Hypertensive heart disease with heart failure; I50.9 Heart failure, unspecified; E78.00 Pure hypercholesterolemia, unspecified; I25.2 Old myocardial infarction; Z88.2 Allergy status to sulfonamides; Z88.8 Allergy status to other drugs, medicaments and biological substances
CPT/HCPCS: 30901; 36415; 80053; 85025; 85610; 85730; 96360; 99284; J7030

== ENCOUNTER → 2022-01-08 | Outpatient (CLI) | payer OTHER ==
[2022-01-04 22:10] VITALS: BP 103/65
[2022-01-08 13:45] LABS: BASO % 1 % (0-3); EOS # 0.1 x10^3/uL (0.0-0.7); EOS % 2 % (0-3); HEMOGLOBIN 10.3 g/dL (12.0-15.5); LYMPH # 2.1 x10^3/uL (1.0-4.8); LYMPH % 34 % (24-48); MEAN CORPUSCULAR HEMOGLOBIN 31 pg (25-35); MEAN CORPUSCULAR HGB CONC 32 g/dL (31-37); MEAN CORPUSCULAR VOLUME 97 fL (79-100); MONO # 0.5 x10^3/uL (0.0-1.1); MONO % 8 % (0-9); NEUT # 3.3 x10^3uL (1.8-7.7); NEUT % 55 % (31-73); PLATELET COUNT 222 x10^3/uL (140-400); RED BLOOD COUNT 3.31 x10^6/uL (3.50-5.40); RED CELL DISTRIBUTION WIDTH 14.5 % (11.5-14.5)
--- NOTE | 2022-01-08 16:37 | RAD ---
Bilateral digital screening 2-D and 3-D (digital breast tomosynthesis) mammogram: Reason for examination: Routine screening. Comparison: Mammograms from 09/18/2020, 09/21/2019, 10/06/2017. Interpretation was made with the benefit of CAD. FINDINGS: Breast density: Category B. There are scattered areas of fibroglandular density. No new suspicious breast mass, malignant appearing calcifications, or architectural distortion is see n. There are multiple unchanged bilateral oval circumscribed masses. The largest is in the 8:30 posit ion of the right breast at posterior depth and measures 1.5 cm. The pacemaker generator obscures a po rtion of the posterior upper left breast and left axilla. IMPRESSION: No evidence of malignancy. Assessment: BI-RADS 2. Benign findings. Recommendation: Routine screening mammograms. The patient will receive a letter with the results in the mail. Patient information will be entered i nto the mammography reminder system with a target recall date for the next mammogram. A reminder stew er will be generated. Electronically signed by: Maria Dolores Carlson MD (01/08/2022 4:35 PM) [id number]
== END ==
LOC: MAMMO 10:47
PROVIDERS: ATTEND Family Medicine
DX: Z12.31 Encounter for screening mammogram for malignant neoplasm of breast (principal); D64.9 Anemia, unspecified
CPT/HCPCS: 36415; 77063; 77067; 82607; 82746; 83540; 84466; 85025